=== PATIENT | male | born 1940 | race Caucasian/White ===

== ENCOUNTER 2017-07-25 12:50 | Inpatient (IN) | payer MEDICARE ==
[~2017-07-25] VITALS: Ht 167.6 cm; Wt 77.2 kg
[~2017-07-25 12:50] MED LIST: ASA81 MG PO; Z.0.AMARYL2 MG PO; Z.0.CLOPIDOGREL75 MG PO; Z.0.COREG6.25 MG PO; Z.0.GLUCOPHAGE500 MG PO; Z.0.PRAVACHOL20 MG PO; Z.0.VASOTEC5 MG PO
[2017-07-25 13:15] VITALS: BP 93/53
[2017-07-25 13:22] VITALS: BP 93/53
[2017-07-25 13:58] LABS: BASOPHILS # (AUTO) 0.1 (0.0-0.1); BASOPHILS % 0.2 % (0.0-1.0); HEMATOCRIT 31.9 % (38.2-49.6); HEMOGLOBIN 10.7 g/dL (14.0-18.0); LYMPHOCYTES # (AUTO) 0.9 (1.0-3.2); LYMPHOCYTES % 4.1 % (18.0-39.1); MEAN CORPUSCULAR HEMOGLOBIN 30.8 pg (28-32); MEAN CORPUSCULAR HGB CONC 33.5 g/dL (31-35); MEAN CORPUSCULAR VOLUME 91.9 fL (81-99); MONOCYTES # (AUTO) 1.6 (0.2-0.8); MONOCYTES % 7.4 % (4.4-11.3); NEUTROPHILS # (AUTO) 18.6 (2.1-6.9); NEUTROPHILS % 86.9 % (38.7-80.0); PLATELET COUNT 392 x10e3/uL (140-360); RED BLOOD COUNT 3.47 x10e6/uL (4.3-5.7); RED CELL DISTRIBUTION WIDTH 13.9 % (11.7-14.4)
[2017-07-25 14:23] LABS: ALANINE AMINOTRANSFERASE 27 IU/L (0-55); ALBUMIN 2.1 g/dL (3.5-5.0); ALBUMIN/GLOBULIN RATIO 0.7 (0.8-2.0); ALKALINE PHOSPHATASE 96 IU/L (40-150); AMYLASE 14 U/L (25-125); ANION GAP 16.4 mmol/L (8-16); BLOOD UREA NITROGEN 54 mg/dL (7-26); BUN/CREATININE RATIO 29 (6-25); CALCIUM 8.7 mg/dL (8.4-10.2); CARBON DIOXIDE 14 mmol/L (22-29); CHLORIDE 108 mmol/L (98-107); CREATININE, SERUM 1.86 mg/dL (0.72-1.25); EST GLOMERULAR FILTRATION RATE 35 ML/MIN (60-); GLUCOSE 158 mg/dL (74-118); POTASSIUM 4.4 mmol/L (3.5-5.1); SODIUM 134 mmol/L (136-145)
[2017-07-25 14:24] LABS: LIPASE < 4 U/L (8-78)
--- NOTE | 2017-07-25 14:28 | Diagnostic Imaging Report ---
PROCEDURE: A single AP view of the chest. COMPARISON: None. INDICATIONS: ORTHO HYPOTENSION, DEHYDRATION FINDINGS: Lines/tubes: None. Lungs: The lungs are well inflated and clear. There is no evidence of pneumonia or pulmonary edema. Pleura: There is no pleural effusion or pneumothorax. Heart and mediastinum: Normal heart size. Mild tortuosity of the thoracic aorta. Bones: No acute bony abnormality. IMPRESSION: 1. No acute cardiopulmonary disease. Dictated by: Eliud Nj M.D. on 07/25/2017 at 14:28 Electronically approved by: Eliud Nj M.D. on 07/25/2017 at 14:28
--- NOTE | 2017-07-25 14:29 | Diagnostic Imaging Report ---
PROCEDURE:X-RAY ABDOMEN - KUB COMPARISON:None. INDICATIONS:DEHYDRATION, ORTHO HYPOTENSION FINDINGS: View the abdomen (AP supine). No dilated loops of bowel or abnormal air-fluid levels patterns. The transverse colon wall appears thickened. No definite calcifications are seen overlying the urinary system. Five non-rib bearing lumbar type vertebral bodies identified. CONCLUSION: The colon wall appears thickened. Correlate for evidence of colitis. No evidence of bowel obstruction. Dictated by: Eliud Nj M.D. on 07/25/2017 at 14:31 Electronically approved by: Eliud Nj M.D. on 07/25/2017 at 14:31
[2017-07-25 14:43] LABS: THYROID STIMULATING HORMONE 2.469 uIU/mL (0.350-4.940)
[2017-07-25 15:01] LABS: BAND NEUTROPHILS % (MANUAL) 1 %; HYPOCHROMASIA SLIGHT; LYMPHOCYTES % (MANUAL) 3 % (19-48); MONOCYTES % (MANUAL) 9 % (3.4-9.0); NEUTROPHILS % (MANUAL) 87 % (40-74)
[2017-07-25 15:02] LABS: PLATELET ESTIMATE SLIGHTLY INCREASED; PLATELET MORPHOLOGY COMMENT RARE EDTA CLUMPING; RBC MORPHOLOGY COMMENT NORMAL
[2017-07-25] MEDS ORDERED: COREG3.125 MG PO (15:10)
[2017-07-25] MEDS ORDERED: LOSARTAN POTAS100 MG PO (15:10)
[2017-07-25] MEDS ORDERED: FERROUS SULFAT325 MG PO (15:10)
[2017-07-25] MEDS ORDERED: ACIDOPHILUS1 EAC1 PO (15:10)
[2017-07-25] MEDS ORDERED: ATORVASTATIN CA20 MG PO (15:10)
[2017-07-25] MEDS ORDERED: FOLIC ACID1 MG PO (15:10)
[2017-07-25] MEDS ORDERED: PANTOPRAZOLE SO40 MG PO (15:10)
[2017-07-25] MEDS ORDERED: SILVADENE20 GM TOP (15:52)
[2017-07-25 16:00] VITALS: BP 119/58
[2017-07-25] MEDS: SODIUM CHLORIDE 0.9% 1000ML 1,000 ML IV SCH (16:48)
[2017-07-25] MEDS: METFORMIN HCL 500 MG TAB PO SCH (16:48)
[2017-07-25] MEDS: METRONIDAZOLE 500MG/NS 100ML 100 ML IV SCH ×2 (16:48→20:30)
[2017-07-25] MEDS: LACTOBACILLUS ACIDOPHILUS CAPSULE PO SCH ×2 (16:48→20:29)
[2017-07-25 20:00] VITALS: BP 94/54
[2017-07-25] MEDS: CHOLESTYRAMINE 4 GM PACKET PO SCH (20:30)
[2017-07-25] MEDS ORDERED: ATORVASTATIN 20 MG TAB PO SCH (21:00)
[2017-07-25 23:20] LABS: INR 1.51; PARTIAL THROMBOPLASTIN TIME 35.5 seconds (23.8-35.5); PROTHROMBIN TIME 17.1 seconds (11.9-14.5)
[2017-07-26] VITALS (10 sets, daily range): BP systolic 83–132; BP diastolic 46–72
[2017-07-26] MEDS: SODIUM CHLORIDE 0.9% 1000ML 1,000 ML IV SCH ×2 (05:56→07:00)
[2017-07-26] MEDS: METRONIDAZOLE 500MG/NS 100ML 100 ML IV SCH ×3 (06:01→21:01)
[2017-07-26] MEDS: CHOLESTYRAMINE 4 GM PACKET PO SCH (06:01)
[2017-07-26] MEDS ORDERED: ONDANSETRON HCL INJ 2 MG/ML VIAL IV PRN (07:30)
[2017-07-26 07:39] LABS: BASOPHILS # (AUTO) 0.1 (0.0-0.1); BASOPHILS % 0.5 % (0.0-1.0); EOSINOPHILS % 0.1 % (0.0-6.0); HEMATOCRIT 33.9 % (38.2-49.6); HEMOGLOBIN 11.2 g/dL (14.0-18.0); LYMPHOCYTES # (AUTO) 1.4 (1.0-3.2); MEAN CORPUSCULAR HEMOGLOBIN 30.5 pg (28-32); MEAN CORPUSCULAR VOLUME 92.4 fL (81-99); MONOCYTES # (AUTO) 1.7 (0.2-0.8); MONOCYTES % 7.2 % (4.4-11.3); NEUTROPHILS # (AUTO) 19.5 (2.1-6.9); PLATELET COUNT 393 x10e3/uL (140-360); RED BLOOD COUNT 3.67 x10e6/uL (4.3-5.7); RED CELL DISTRIBUTION WIDTH 13.9 % (11.7-14.4)
[2017-07-26 07:59] LABS: ALBUMIN 1.7 g/dL (3.5-5.0); ALBUMIN/GLOBULIN RATIO 0.7 (0.8-2.0); ANION GAP 17.3 mmol/L (8-16); CALCIUM 8.2 mg/dL (8.4-10.2); CREATININE, SERUM 3.01 mg/dL (0.72-1.25); POTASSIUM 4.3 mmol/L (3.5-5.1)
[2017-07-26] MEDS: METFORMIN HCL 500 MG TAB PO SCH (08:32)
[2017-07-26] MEDS: FOLIC ACID 1 MG TAB PO SCH (08:33)
[2017-07-26] MEDS: FERROUS SULFATE 325 MG TAB PO SCH (08:33)
[2017-07-26] MEDS: LACTOBACILLUS ACIDOPHILUS CAPSULE PO SCH ×2 (08:33→20:39)
[2017-07-26 08:56] LABS: BAND NEUTROPHILS % (MANUAL) 10 %; LYMPHOCYTES % (MANUAL) 2 % (19-48); METAMYELOCYTES % (MANUAL) 8 % (0-0); MONOCYTES % (MANUAL) 8 % (3.4-9.0); MYELOCYTES % (MANUAL) 1 % (0-0); NEUTROPHILS % (MANUAL) 69 % (40-74)
[2017-07-26 08:59] LABS: TOXIC GRANULATION SLIGHT
[2017-07-26] MEDS ORDERED: CLOPIDOGREL BISULFATE 75 MG TAB PO SCH (09:00)
[2017-07-26] MEDS ORDERED: PANTOPRAZOLE SOD 40 MG TABEC PO SCH (09:00)
[2017-07-26 09:03] LABS: BURR CELLS SLIGHT; POIKILOCYTOSIS SLIGHT; POLYCHROMASIA FEW; RBC MORPHOLOGY COMMENT NORMAL
[2017-07-26 09:04] LABS: PLATELET ESTIMATE ADEQUATE; PLATELET MORPHOLOGY COMMENT RARE EDTA CLUMPING; SMUDGE CELLS FEW
[2017-07-26] MEDS ORDERED: DEXTROSE 50% SYRINGE 50 ML IV PRN (10:00)
[2017-07-26] MEDS: PROMETHAZINE 25MG/ NS 50ML (IV) IV PRN (10:15)
--- NOTE | 2017-07-26 10:18 | History and Physical ---
This is a 76-year-old male patient of [facility]. He presented to the office with complaint of severe weakness and diarrhea, which have worsened for the last 3 to 4 days. HISTORY OF PRESENT ILLNESS: Mr. Dill said his problems started a month ago when he had a dog bite on 2 different occasions. For that, the patient had to come to the emergency room. Then the patient was given outpatient antibiotics, and the patient had aggressive wound care being done. The patient's wound was taken care of by Silvadene, Bactrim and doxycycline. The patient has now reported that he was having on and off loose BMs for the last month. For the last 3 to 4 days, it had worsened. The patient was evaluated in the office. The patient was hypotensive with orthostasis with severe dehydration. The patient was admitted. The patient had outpatient C. diff study ordered, which was reported negative on July 18, 2017. MEDICATIONS: See from the list. PAST MEDICAL HISTORY: Diabetes mellitus, hypertension, coronary artery disease. PAST SURGICAL HISTORY: Angiogram and angioplasty. Cholecystectomy. ALLERGIES: THE PATIENT HAD SIDE EFFECTS WITH PRAVASTATIN AND ZOCOR. SOCIAL HISTORY: Denies smoking. Denies using alcohol. REVIEW OF SYSTEMS: Severe weakness, diarrhea, nausea, vomiting. PHYSICAL EXAMINATION GENERAL: He is an elderly male patient lying in bed, not in any acute distress. The patient has dry mucosa. HEENT: Normocephalic, atraumatic. NECK: No JVD. No lymphadenopathy. LUNGS: Bilateral equal air entry, no rales, no rhonchi. HEART: S1 and S2, regular. No murmur. No gallop. ABDOMEN: Soft. Bowel sounds are present. NEUROLOGIC: Examination is nonfocal. No neurologic deficit. LABORATORY EXAMINATION: The patient had a normal WBC count on July 18 that was 6.1, which had jumped on admission to 21.4. Today, it is 23.52. His creatinine has jumped up to 3 with BUN of 71. ADMISSION IMPRESSION AND DIAGNOSIS: Clostridium difficile colitis with acute severe dehydration with acute renal failure in a patient with diabetes mellitus, coronary artery disease and right lower leg wound from a dog bite, which is healing. PLAN: The patient will be admitted with the above diagnoses. The patient will be given aggressive rehydration. Will obtain ID and nephrology consults. Treat the patient with vancomycin. Job#: [id number]
[2017-07-26] MEDS: SILVER SULFADIAZINE 400GM CREAM TOP SCH (11:06)
--- NOTE | 2017-07-26 12:26 | Consultation ---
DATE OF CONSULTATION: July 26, 2017 History is predominantly from chart and electronic records. Patient is sleepy and drowsy, arousable, very poor historian. He is a 76-year-old gentleman with existing history of chronic kidney disease. Baseline serum creatinine as of 07/18/2017 was 1.38. Renal consulted for worsening kidney function. He has significantly elevated white count with issues of infection and sepsis. Hemoglobin is 11.2 with sodium 131 and bicarbonate 11 with BUN 31 and creatinine 3. Yesterday it was 1.86. ALLERGIES: LANSOPRAZOLE AND SIMVASTATIN. CURRENT MEDICATIONS: Patient is on metronidazole, normal saline at 125 mL an hour, Atorvastatin, Plavix, ferrous sulfate, folic acid, metformin which has been stopped, Reglan, silver sulfadiazine topically, vancomycin 250 mg p.o. q.6. He has been treated for possible C. diff. SOCIAL HISTORY: He does not smoke or drink. FAMILY HISTORY: Please see notes for detail. PAST HISTORY: Patient has a history of wounds, diabetes, hypertension, coronary artery disease, prior percutaneous intervention, hyperlipidemia, prior cholecystectomy, history of C. diff colitis. PHYSICAL EXAMINATION GENERAL: Sleepy, arousable, in no apparent distress. VITALS: Blood pressure 132/60, pulse rate 80, afebrile, respiratory rate 18. HEAD AND NECK: Corneas clear. Arcus senilis noted. LUNGS: Relatively clear. No rales or rhonchi. HEART: S1, S2 audible. ABDOMEN: Otherwise soft and nontender. No deep palpation done. Possible distended urinary bladder. Patient is not letting me fully examine him. He says his belly hurts. He has not voided any urine he claims. LOWER EXTREMITIES: No edema. IMPRESSION AND PLAN: Acute kidney injury with development of metabolic acidosis. Apparently was on metformin. Has underlying history of chronic kidney disease, stage 3. I doubt we are dealing with metformin-induced nephrotoxicity and lactic acidosis, but will obtain a stat lactic acid level. I will discontinue existing normal saline and start IV bicarbonate stat. Rule out urinary tract obstruction. Will have a stat kidney ultrasound and urinary bladder. Will have a 16-Italian Felix inserted. Please see orders. Job#: [id number]
[2017-07-26] MEDS: INSULIN REGULAR, HUMAN 100 UNIT/1 ML 3ML VIAL SQ SCH ×3 (12:49→20:39)
[2017-07-26] MEDS: SODIUM BICARBONATE 8.4% 150 ML in DEXTROSE 5% 1,000 ML IV SCH (12:51)
[2017-07-26] MEDS: VANCOMYCIN 250MG/5ML ORAL SOLN PO SCH ×3 (12:51→23:35)
--- NOTE | 2017-07-26 13:35 | Consultation ---
DATE OF CONSULTATION: July 26, 2017 INFECTIOUS DISEASE CONSULTATION ATTENDING PHYSICIAN: Dr. Daryl Avalos REASON FOR CONSULTATION: C. diff. Thank you Dr. Avalos for asking me to see this patient. HISTORY: The patient is a 76-year-old man referred for C. difficile. He presented to the primary care provider's office with vomiting, cramping abdominal pain, profuse diarrhea and generalized weakness for several days. There was no fever or loss of consciousness. The patient was bitten by his dog and was treated at [facility] with amoxicillin several days earlier. Also the patient was receiving Bactrim and lactobacillus. Evaluation at the primary care provider's office revealed orthostatic hypotension and severe dehydration so the patient was admitted to the hospital. At triage, the patient was noted to have temperature of 96, pulse 86, respiratory rate 18, blood pressure 93/63 and oxygen saturation at 80% on room air. Initially laboratory studies showed blood leukocyte count of 21,400 with 87% segments and 1% bands; BUN 54, creatinine 1.86. Stool C. difficile text later turned positive. PAST MEDICAL HISTORY: Diabetes mellitus type 2, hypertension, hyperlipidemia, coronary artery disease, chronic kidney disease stage 3, peripheral arterial disease, hypothyroidism, gastroesophageal reflux disease. PAST SURGICAL HISTORY: Cholecystectomy. ALLERGIES: PREVACID AND ? ZOCOR. MEDICATIONS: See MAR. The current antibiotics are vancomycin 250 mg p.o. q.6 hours and metronidazole 250 mg p.o. q.8 hours. IMMUNIZATIONS: He received pneumococcal vaccination in the past. He also received tetanus-diphtheria vaccine last month. FAMILY HISTORY: Significant for diabetes mellitus in the mother and the father. SOCIAL HISTORY: No tobacco use. REVIEW OF SYSTEMS: As per history of present illness. The patient still has frequent vomiting, abdominal pain and generalized weakness. He denies cough, shortness of breath, or dysuria. PHYSICAL EXAMINATION GENERAL: Acutely ill. VITAL SIGNS: T max 99.4, pulse 95, respiratory rate 18, blood pressure 89/51, weight 143 pounds. HEENT: Normocephalic. There is no icterus or injection of conjunctivae. There is no ear or nasal discharge. Dry oral mucosa. No pharyngeal erythema or exudate. NECK: Supple. No lymphadenopathy or meningismus. LUNGS: Clear to auscultation bilaterally. HEART: Normal S1 and S2. ABDOMEN: Soft with moderate diffuse tenderness. EXTREMITIES: There is granulating right calf wound. There is no edema, clubbing or cyanosis. The dorsalis pedis and posterior tibial pulses are weak to palpation both feet. SKIN: There is granulating right calf wound. No acute erythema. UI ARCHITECT: Awake, alert and oriented to person, place and time. There is decreased sensation on monofilament examination of the feet bilaterally. LABORATORY AND DIAGNOSTICS: WBC 23,520, hemoglobin 11.2, platelets 393,000, segments 69, bands 10, lymphs 2, monos 8. Toxic granulation slight. BUN 71, creatinine 3.01, blood glucose 188, AST 26, ALT 25, alk phos 81, total bilirubin 0.5. Plain abdominal x-ray showed thickened colon wall but no evidence of bowel obstruction. Chest x-ray showed no acute cardiopulmonary disease. IMPRESSION 1. Sepsis present on admission. 2. Clostridium difficile colitis present on admission. 3. Severe dehydration also present on admission. 4. Right calf wound. 5. Acute kidney injury on chronic kidney disease stage 3. 6. Diabetes mellitus type 2 with peripheral neuropathy. 7. Coronary artery disease. 8. Hypothyroidism. PLAN 1. Continue IV fluid resuscitation. 2. Change Flagyl to 500 mg IV piggyback q.8 hours and continue vancomycin 250 mg p.o. q.6 hours. Nausea control as prescribed. 3. Local wound care. Job#: [id number] ESTUARDO ULLOA
[2017-07-26] MEDS ORDERED: METRONIDAZOLE 250 MG TAB PO SCH (14:00)
[2017-07-26] MEDS ORDERED: SODIUM CHLORIDE 0.9% 1000ML 1,000 ML ONE (14:18)
--- NOTE | 2017-07-26 15:36 | Diagnostic Imaging Report ---
PROCEDURE:US RETROPERITONEAL ( KIDNEY ). COMPARISON:None. INDICATIONS:ECTOR TECHNIQUE: Mcdonald-scale and color sonographic images of the bilateral kidneys and bladder where obtained in transverse and longitudinal planes. FINDINGS: RIGHT KIDNEY: 9.4 x 5.3 x 5.2 cm, cortex 1.2 cm Cysts: None Solid masses: None Stones: None Hydronephrosis: None Echogenicity: None LEFT KIDNEY: 9.1 x 4.9 x 5.3 cm, cortex 1.3 cm Cysts: None Solid masses: None Stones: None Hydronephrosis: None Echogenicity: None Bladder: Collapsed secondary to Felix catheter. Additional Findings: Small amount of ascites in the right lower quadrant. CONCLUSION: Normal ultrasound of the kidneys. No hydronephrosis. Dictated by: Jose C Rogers M.D. on 07/26/2017 at 15:37 Electronically approved by: Jose C Rogers M.D. on 07/26/2017 at 15:37
[2017-07-26] MEDS ORDERED: SODIUM CHLORIDE 0.9% 1000ML 1,000 ML IV PRN (17:00)
[2017-07-26] MEDS ORDERED: HEPARIN SOD (PORCINE) 1000 UNIT/ML SDV IV PRN (17:00)
[2017-07-26] MEDS ORDERED: SODIUM CHLORIDE 0.9% 1000ML 1,000 ML IV SCH (17:30)
[2017-07-26] MEDS: ATORVASTATIN 40 MG TAB PO SCH (20:39)
[2017-07-27] VITALS (67 sets, daily range): BP systolic 75–140; BP diastolic 43–80
[2017-07-27] MEDS ORDERED: PANTOPRAZOLE 40 MG 10ML VIAL IV STA (02:35)
[2017-07-27] MEDS ORDERED: PANTOPRAZOL 40MG/SOD CHL 0.9% 250 ML IV SCH (02:45)
[2017-07-27] MEDS: SODIUM BICARBONATE 8.4% 150 ML in DEXTROSE 5% 1,000 ML IV SCH ×2 (03:19→10:50)
[2017-07-27] MEDS: METRONIDAZOLE 500MG/NS 100ML 100 ML IV SCH ×3 (05:19→21:14)
[2017-07-27] MEDS: VANCOMYCIN 250MG/5ML ORAL SOLN PO SCH ×3 (05:19→17:07)
[2017-07-27] MEDS ORDERED: SODIUM CHLORIDE 0.9% 1000ML 1,000 ML IV SCH (06:30)
[2017-07-27 06:56] LABS: BASOPHILS % 0.1 % (0.0-1.0); EOSINOPHILS % 0.2 % (0.0-6.0); HEMATOCRIT 31.4 % (38.2-49.6); HEMOGLOBIN 10.8 g/dL (14.0-18.0); LYMPHOCYTES # (AUTO) 0.9 (1.0-3.2); LYMPHOCYTES % 5.9 % (18.0-39.1); MEAN CORPUSCULAR HEMOGLOBIN 30.3 pg (28-32); MEAN CORPUSCULAR HGB CONC 34.4 g/dL (31-35); MONOCYTES # (AUTO) 1.1 (0.2-0.8); MONOCYTES % 7.8 % (4.4-11.3); NEUTROPHILS # (AUTO) 11.4 (2.1-6.9); NEUTROPHILS % 77.5 % (38.7-80.0); PLATELET COUNT 280 x10e3/uL (140-360); RED BLOOD COUNT 3.57 x10e6/uL (4.3-5.7); RED CELL DISTRIBUTION WIDTH 13.5 % (11.7-14.4)
[2017-07-27 07:18] LABS: ALBUMIN 1.2 g/dL (3.5-5.0); ALBUMIN/GLOBULIN RATIO 0.6 (0.8-2.0); ANION GAP 12.7 mmol/L (8-16); CALCIUM 7.2 mg/dL (8.4-10.2); CREATININE, SERUM 2.73 mg/dL (0.72-1.25); POTASSIUM 3.7 mmol/L (3.5-5.1)
[2017-07-27 08:09] LABS: BAND NEUTROPHILS % (MANUAL) 10 %; BURR CELLS SLIGHT; LYMPHOCYTES % (MANUAL) 8 % (19-48); MONOCYTES % (MANUAL) 11 % (3.4-9.0); MYELOCYTES % (MANUAL) 1 % (0-0); NEUTROPHILS % (MANUAL) 70 % (40-74); NUCLEATED RED BLOOD CELLS 2; PLATELET ESTIMATE ADEQUATE; PLATELET MORPHOLOGY COMMENT FEW EDTA CLUMPING; RBC MORPHOLOGY COMMENT ABNORMAL; SCHISTOCYTES RARE
[2017-07-27] MEDS ORDERED: SODIUM CHLORIDE 0.9% 1000ML 1,000 ML ONE (08:36)
[2017-07-27] MEDS ORDERED: PANTOPRAZOLE 40 MG 10ML VIAL IV SCH (09:00)
[2017-07-27] MEDS: LACTOBACILLUS ACIDOPHILUS CAPSULE PO SCH ×2 (09:00→15:33)
[2017-07-27] MEDS: FERROUS SULFATE 325 MG TAB PO SCH ×2 (09:00→15:33)
[2017-07-27] MEDS: FOLIC ACID 1 MG TAB PO SCH ×2 (09:00→15:33)
[2017-07-27] MEDS: SODIUM CHLORIDE 0.9% 1000ML 1,000 ML IV SCH ×8 (09:29→15:37)
[2017-07-27] MEDS: INSULIN REGULAR, HUMAN 100 UNIT/1 ML 3ML VIAL SQ SCH ×4 (09:37→21:18)
[2017-07-27] MEDS: PANTOPRAZOL 40MG/SOD CHL 0.9% 50 ML IV SCH ×5 (10:49→22:40)
[2017-07-27] MEDS ORDERED: NOREPINEPHRINE 8 MG/D5W 250 ML 250 ML ONE (11:23)
[2017-07-27] MEDS: VASOPRESSIN 100 UNIT in DEXTROSE 5% 100ML 100 ML IV SCH (12:04)
[2017-07-27] MEDS: NOREPINEPHRINE INJ 4MG/4ML 8 MG in DEXTROSE 5% 250ML 250 ML IV SCH (12:05)
[2017-07-27] MEDS ORDERED: ALBUMIN 5% 250ML IV ONE (12:15)
[2017-07-27] MEDS ORDERED: ALBUMIN 25% 12.5GM 150 ML IV ONE (13:00)
--- NOTE | 2017-07-27 13:25 | Diagnostic Imaging Report ---
SINGLE VIEW CHEST, 07/27/2017 Clinical History: Line placement. Technique: Single, portable AP view chest. Comparison: None. Findings: See impression. Impression: 1. Right internal jugular central venous catheter with the tip at the atriocaval junction. 2. Right internal jugular non-tunneled dialysis catheter with tip in the right atrium. 3. Stable cardiac mediastinal silhouette, with mild cardiomegaly for technique. 4. Low lung volume with bibasilar subsegmental atelectasis. No pleural effusion or pneumothorax. 5. Intact skeleton. This report was generated with voice-recognition technology. Errors in registered medical transcriptionist can occur. Please interpret accordingly and contact a radiologist if there are any questions regarding the report. Signed by: Dr. Abad Delatorre M.D. on 07/27/2017 1:22 PM
--- NOTE | 2017-07-27 13:43 | Diagnostic Imaging Report ---
Non-tunneled Central Venous Catheter Placement July 27, 2017 Pre-Procedure Diagnosis: Hypotension Post-procedure Diagnosis:Hypotension Food Counter Worker: Kendell Delatorre Snorkelling Instructor: None Sedation: None. 1% lidocaine local anesthesia. Estimate blood loss: <5 mL Blood administered: None Complications: None Implants/Grafts: 16 cm 7-Malawian 3 lumen CVC Specimen: None Procedure: Informed consent was obtained and the patient positioned supine in the ICU. A timeout was performed, followed by preliminary ultrasound of the right internal jugular vein (see findings below). The right neck was prepped and draped in standard fashion. Using real-time ultrasound guidance a 18 gauge vascular needle was used to access the right internal jugular vein. An image was stored in the electronic medical record. A wire was advanced while monitoring the patient's cardiac rhythm and the needle exchanged for a non-tunneled central venous catheter using standard Salinger technique. At the end of the procedure the catheter was flushed, secured to the skin and a sterile dressing applied. The patient tolerated the procedure well and without immediate complication. Findings: Patent right internal jugular vein as demonstrated by normal ultrasound compressibility. Impression: Successful placement of a non-tunneled right internal jugular central venous catheter using ultrasound guidance. This report was generated with voice-recognition technology. Errors in corporate securities research analyst can occur. Please interpret accordingly and contact a radiologist if there are any questions regarding the report. Signed by: Dr. Abad Delatorre M.D. on 07/27/2017 1:39 PM
--- NOTE | 2017-07-27 13:43 | Diagnostic Imaging Report ---
Non-tunneled Central Venous Catheter Placement July 27, 2017 Pre-Procedure Diagnosis: Hypotension Post-procedure Diagnosis:Hypotension Nut And Bolt Assembler: Kendell Delatorre Data Operations Leader: None Sedation: None. 1% lidocaine local anesthesia. Estimate blood loss: <5 mL Blood administered: None Complications: None Implants/Grafts: 16 cm 7-Trinidadian 3 lumen CVC Specimen: None Procedure: Informed consent was obtained and the patient positioned supine in the ICU. A timeout was performed, followed by preliminary ultrasound of the right internal jugular vein (see findings below). The right neck was prepped and draped in standard fashion. Using real-time ultrasound guidance a 18 gauge vascular needle was used to access the right internal jugular vein. An image was stored in the electronic medical record. A wire was advanced while monitoring the patient's cardiac rhythm and the needle exchanged for a non-tunneled central venous catheter using standard Salinger technique. At the end of the procedure the catheter was flushed, secured to the skin and a sterile dressing applied. The patient tolerated the procedure well and without immediate complication. Findings: Patent right internal jugular vein as demonstrated by normal ultrasound compressibility. Impression: Successful placement of a non-tunneled right internal jugular central venous catheter using ultrasound guidance. This report was generated with voice-recognition technology. Errors in auto dealership porter can occur. Please interpret accordingly and contact a radiologist if there are any questions regarding the report. Signed by: Dr. Abad Delatorre M.D. on 07/27/2017 1:39 PM
--- NOTE | 2017-07-27 13:43 | Diagnostic Imaging Report ---
Non-tunneled Central Venous Catheter Placement July 27, 2017 Pre-Procedure Diagnosis: Hypotension Post-procedure Diagnosis:Hypotension Laborer General: Kendell Delatorre Special Service Representative: None Sedation: None. 1% lidocaine local anesthesia. Estimate blood loss: <5 mL Blood administered: None Complications: None Implants/Grafts: 16 cm 7-Ukrainian 3 lumen CVC Specimen: None Procedure: Informed consent was obtained and the patient positioned supine in the ICU. A timeout was performed, followed by preliminary ultrasound of the right internal jugular vein (see findings below). The right neck was prepped and draped in standard fashion. Using real-time ultrasound guidance a 18 gauge vascular needle was used to access the right internal jugular vein. An image was stored in the electronic medical record. A wire was advanced while monitoring the patient's cardiac rhythm and the needle exchanged for a non-tunneled central venous catheter using standard Salinger technique. At the end of the procedure the catheter was flushed, secured to the skin and a sterile dressing applied. The patient tolerated the procedure well and without immediate complication. Findings: Patent right internal jugular vein as demonstrated by normal ultrasound compressibility. Impression: Successful placement of a non-tunneled right internal jugular central venous catheter using ultrasound guidance. This report was generated with voice-recognition technology. Errors in project buyer can occur. Please interpret accordingly and contact a radiologist if there are any questions regarding the report. Signed by: Dr. Abad Delatorre M.D. on 07/27/2017 1:39 PM
--- NOTE | 2017-07-27 13:50 | Consultation ---
DATE OF CONSULTATION: REQUESTING PHYSICIAN: Dr. Tavares Avalos. REASON FOR CONSULT: Tachycardia. HISTORY OF PRESENT ILLNESS: Mr. Dill is a 76-year-old gentleman with past medical history as listed below CANCELED DICTATION See dictated note Job#: [id number] PKU MTDD
--- NOTE | 2017-07-27 13:51 | Consultation ---
DATE OF CONSULTATION: July 27, 2017 REQUESTING PHYSICIAN: Dr. Avalos. REASON FOR CONSULTATION: Tachycardia, hypotension. HISTORY OF PRESENT ILLNESS: Mr. Dill is a 76-year-old gentleman with past medical history as listed below. He was admitted with C. difficile colitis. He was on the floor being treated. The patient developed abdominal pain, and his blood pressure dropped to the 50s. The patient was transferred to the intensive care unit. Currently, his blood pressure is in the 90s. The heart rate is in the low 100s. Patient complains of abdominal pain, no vomiting. He did have some diarrhea. He denies any chest pain. He does have shortness of breath. Patient also has renal failure. REVIEW OF SYSTEMS CONSTITUTIONAL: Has some fatigue and weakness. HEENT: No headache, blurry vision, seizures or syncope. CARDIOVASCULAR: No chest pain. Has dyspnea. No orthopnea or PND. RESPIRATORY: No cough, fever or expectoration. GI: Has abdominal pain. No vomiting. Has diarrhea. : No dysuria, frequency, incontinence. ALLERGIES: LISINOPRIL AND SIMVASTATIN. MEDICATIONS: See list. PAST MEDICAL HISTORY 1. History of hypertension. 2. History of diabetes mellitus. 3. History of CAD and history of PTCA. PAST SURGICAL HISTORY 1. Cholecystectomy. 2. History of PTCA. SOCIAL HISTORY: Does not smoke or drink. FAMILY HISTORY: Noncontributory. PHYSICAL EXAMINATION GENERAL: Moderately built and nourished gentleman who is awake, alert, not in any obvious distress. VITALS: Heart rate 108. Blood pressure is 94/58. Respiratory rate is 18. HEENT: Atraumatic. NECK: No JVD, bruit, thyromegaly or lymphadenopathy. CARDIOVASCULAR: First and second heart sounds heard. No murmurs, rubs or gallops appreciated. CHEST: Decreased air entry at the bases. No adventitious sounds appreciated. ABDOMEN: Soft. Mild umbilical tenderness. EXTREMITIES: No edema. LABS: Sodium is 134, potassium 3.7, chloride 99, bicarb 26. BUN is 42, and creatinine is 2.7. Glucose 201. Hemoglobin is 10.8, hematocrit 31.4, platelets are 280. White count is 14.6. INR 1.5. IMPRESSION 1. Possible sepsis. 2. Clostridium difficile colitis. 3. Hypotension. 4. Tachycardia. 5. History of coronary artery disease. 6. History of diabetes mellitus. PLAN 1. The patient's tachycardia and hypotension are probably due to his sepsis and C. diff. 2. His blood pressure is in the 90s. Continue with IV fluids. Should his blood pressure come down, will start him on pressors. 3. Get echocardiogram to assess LV function and valvular function. 4. Continue with antibiotics. 5. Further cardiac workup depending on clinical course. 6. I discussed my impression and plan of management with the patient. As always, I appreciate and thank you very for your referrals. Job#: [id number]
[2017-07-27 13:53] LABS: ABG HCO3 29 mmol/L (23-28); ABG PCO2 41 mmHg (41-51); ABG PH 7.46 (7.31-7.41); ABG PO2 104 mmHg (80-105)
[2017-07-27] MEDS ORDERED: BUMETANIDE INJ 0.25MG/ML 4ML VIAL ONE ×2 (16:11→16:24)
[2017-07-27] MEDS ORDERED: BUMETANIDE IV SCH ×2 (16:30→17:00)
[2017-07-27] MEDS ORDERED: SODIUM CHLORIDE 0.9% IV SCH ×2 (16:30→17:00)
[2017-07-27] MEDS ORDERED: BUMETANIDE INJ 0.25MG/ML 4ML VIAL IV ONE (17:00)
[2017-07-27] MEDS ORDERED: BUMETANIDE 10 MG in SODIUM CHLORIDE 0.9% 100 ML 60 ML IV SCH (17:00)
[2017-07-27] MEDS: SILVER SULFADIAZINE 400GM CREAM TOP SCH (17:07)
--- NOTE | 2017-07-27 21:08 | Consultation ---
DATE OF CONSULTATION: July 27, 2017 PULMONARY/CRITICAL CARE CONSULTATION REASON FOR CONSULT: Septic shock. CHIEF COMPLAINT: Weakness and diarrhea for the last 3 to 4 days when he presented to Dr. Daryl Avalos's office. HPI: Mr. Dill is a 76-year-old male who was sent from Dr. Avalos's office with the complaint of diarrhea. Patient remained on the floor and was found to develop renal failure and leukocytosis with hypotension. He was transferred to ICU. His C. diff study came back positive last night, and he is being treated with antibiotics for C. diff colitis. He reports that he went to [facility] as an outpatient for the treatment of a dog bite. He was in the emergency room for a couple of hours. However, he has not been hospitalized in the last 6 to 8 months. The patient was severely dehydrated in the office. On July 18, 2017, he had an outpatient C. diff study which was negative. REVIEW OF SYSTEMS GENERAL: Denies any fever or chills. HEAD: Denies any head trauma. ENT: Denies any earache. CVS: Denies any chest pain. RESPIRATORY: The patient feels short of breath. GI: Diarrhea, abdominal pain. MUSCULOSKELETAL: Denies any arthralgias or myalgias. NEURO: Denies any focal weakness. OTHER: The rest of the review of systems are negative except as in HPI. PAST MEDICAL HISTORY: Diabetes, hypertension, coronary artery disease. PAST SURGICAL HISTORY: Cholecystectomy. FAMILY AND SOCIAL HISTORY: He does not smoke and does not drink. PHYSICAL EXAMINATION VITAL SIGNS: Temperature 97.6, pulse of 98, blood pressure 124/64. This is on 2 pressors, Levophed and vasopressin and dobutamine. HEENT: Head is atraumatic and normocephalic. NECK: Supple. No JVD. Thyroid is not enlarged. CHEST: Clear to auscultation bilaterally. HEART: S1 and S2 audible. No murmurs, gallops or rub. ABDOMEN: Mildly distended. Tender. Bowel sounds audible. EXTREMITIES: No clubbing, cyanosis or edema. NEUROLOGIC: Awake and alert. Following commands. Responds to questions appropriately. [place]S: [place] [address], yesterday was 23,000. Hemoglobin 10.8. Platelets 280. Chemistry: Sodium 134, potassium 3.7, chloride 99, BUN 42, creatinine 2.73. It was 3.01, down to 2.73. Chest x-ray showed low lung volumes but no focal infiltrate. ASSESSMENT AND PLAN: Mr. Dill is a 76-year-old male who presented with diarrhea and now is in septic shock secondary to Clostridium difficile colitis. CURRENT PROBLEMS 1. Sepsis present on admission, now in septic shock due to Clostridium difficile colitis. 2. Severe dehydration. 3. Acute kidney injury. 4. Coronary artery disease. Preliminary reading on echocardiogram showed ejection fraction 60% to 65%. PLAN 1. IV antibiotics per ID recommendation. Patient is on Flagyl and p.o. vancomycin. 2. Continue on Levophed to keep the MAP more than or equal to 65. 3. If patient has deterioration in the condition, then may need CT scan of the abdomen and pelvis to rule out toxic megacolon and complication of C. diff colitis. 4. Continue the patient on oxygen to keep the O2 sat more than or equal to 92%. 5. Discussed with the patient's family at bedside. Critical care time is 45 minutes. Job#: [id number]
[2017-07-27] MEDS: ATORVASTATIN 40 MG TAB PO SCH (21:13)
[2017-07-27] MEDS ORDERED: DIATRIZOATE MEGL/DIATRIZOA SOD 30 ML BTL PO ONE (22:05)
[2017-07-27] MEDS: PROMETHAZINE 25MG/ NS 50ML (IV) IV PRN (22:26)
[2017-07-28] VITALS (87 sets, daily range): BP systolic 92–140; BP diastolic 46–81
[2017-07-28] MEDS: VANCOMYCIN 250MG/5ML ORAL SOLN PO SCH ×5 (00:26→23:19)
--- NOTE | 2017-07-28 00:32 | Diagnostic Imaging Report ---
EXAM: CT ABDOMEN AND PELVIS without IV CONTRAST INDICATION: Abdominal distention, C. Difficile COMPARISON: None TECHNIQUE: The abdomen and pelvis were scanned using a multidetector helical scanner. Coronal and sagittal reformations were obtained. Routine protocol performed. IV Contrast: None Oral Contrast: Gastrografin CTDIvol has been reviewed. It is below the limits set by the Radiation Protocol Committee (RPC). FINDINGS: LOWER THORAX: Small bilateral pleural effusions with adjacent atelectasis. Partially visualized small pericardial effusion. LIVER: No masses BILIARY: Normal gallbladder. No ductal dilation. SPLEEN: No masses PANCREAS: No masses ADRENALS: No nodules RIGHT KIDNEY: No nephroureterolithiasis or hydronephrosis. LEFT KIDNEY: No nephroureterolithiasis or hydronephrosis. GI TRACT: Gastrografin in the partially visualized distal esophagus, stomach and proximal small bowel. Marked diffuse colonic wall thickening VESSELS: Advanced atherosclerotic changes of the abdominal aorta without aneurysm. PERITONEUM/RETROPERITONEUM: Small volume ascites. LYMPH NODES: No lymphadenopathy REPRODUCTIVE ORGANS: Normal BLADDER: Decompressed by Felix catheter. SOFT TISSUES: Normal BONES: No suspicious bone lesions. IMPRESSION: Fair-colitis with marked colonic wall thickening consistent with provided history of C. difficile. Small volume ascites, small pericardial effusion, and small bilateral pleural effusions. Signed by: Dr. Maddy Abel M.D. on 07/28/2017 12:28 AM
[2017-07-28] MEDS: MORPHINE SULFATE 2 MG/ML SYR IV PRN ×2 (01:28→05:36)
[2017-07-28] MEDS: METRONIDAZOLE 500MG/NS 100ML 100 ML IV SCH ×3 (05:35→22:10)
[2017-07-28 05:44] LABS: BASOPHILS % 0.1 % (0.0-1.0); EOSINOPHILS # (AUTO) 0.1 (0.0-0.4); EOSINOPHILS % 0.3 % (0.0-6.0); HEMATOCRIT 28.3 % (38.2-49.6); HEMOGLOBIN 9.7 g/dL (14.0-18.0); LYMPHOCYTES # (AUTO) 0.8 (1.0-3.2); LYMPHOCYTES % 3.4 % (18.0-39.1); MEAN CORPUSCULAR HEMOGLOBIN 30.5 pg (28-32); MEAN CORPUSCULAR HGB CONC 34.3 g/dL (31-35); MONOCYTES # (AUTO) 1.8 (0.2-0.8); MONOCYTES % 7.9 % (4.4-11.3); NEUTROPHILS # (AUTO) 16.4 (2.1-6.9); NEUTROPHILS % 71.1 % (38.7-80.0); PLATELET COUNT 202 x10e3/uL (140-360); RED BLOOD COUNT 3.18 x10e6/uL (4.3-5.7); RED CELL DISTRIBUTION WIDTH 13.8 % (11.7-14.4)
[2017-07-28 06:06] LABS: ALBUMIN 1.8 g/dL (3.5-5.0); ANION GAP 16.8 mmol/L (8-16); CREATININE, SERUM 4.2 mg/dL (0.72-1.25); POTASSIUM 3.8 mmol/L (3.5-5.1)
[2017-07-28 06:22] LABS: CALCIUM 6.8 mg/dL (8.4-10.2)
[2017-07-28] MEDS ORDERED: CALCIUM CHLORIDE 13.6 MEQ in SODIUM CHLORIDE 0.9% 100 ML 100 ML IV ONE (06:45)
[2017-07-28] MEDS: DEXTROSE 5%/0.45% SOD CHL 1,000 ML IV SCH ×3 (06:57→23:24)
[2017-07-28] MEDS: INSULIN REGULAR, HUMAN 100 UNIT/1 ML 3ML VIAL SQ SCH ×4 (08:14→22:02)
[2017-07-28] MEDS: LACTOBACILLUS ACIDOPHILUS CAPSULE PO SCH ×2 (09:00→21:00)
[2017-07-28] MEDS ORDERED: SODIUM CHLORIDE 0.9% 1000ML 1,000 ML ONE (09:09)
[2017-07-28] MEDS ORDERED: CEFOXITIN SOD 1 GM in WATER STERILE 10ML VIAL 10 ML IV STA (09:32)
[2017-07-28] MEDS ORDERED: CEFOXITIN SOD 1 GM VIAL IV ONE (09:45)
[2017-07-28] MEDS: NOREPINEPHRINE INJ 4MG/4ML 8 MG in DEXTROSE 5% 250ML 250 ML IV SCH (11:15)
[2017-07-28] MEDS: VASOPRESSIN 100 UNIT in DEXTROSE 5% 100ML 100 ML IV SCH (11:30)
[2017-07-28] MEDS ORDERED: PROPOFOL IV EMULSION 10MG/ML 100 ML IV PRN (14:00)
[2017-07-28 14:05] LABS: ABG HCO3 20 mmol/L (23-28); ABG PCO2 36 mmHg (41-51); ABG PH 7.35 (7.31-7.41); ABG PO2 67 mmHg (80-105)
--- NOTE | 2017-07-28 14:44 | Diagnostic Imaging Report ---
EXAM: XR CHEST 1 VIEW DATE: 07/28/2017 11:56 AM INDICATION: Intubation COMPARISON: Previous day FINDINGS: Lines and Tubes: ET tube tip above the roger, NG tube with side holes likely above the GE junction, and 2 separate right IJ catheters with tip overlying the posterior junction. Heart and Mediastinum: No acute cardiomediastinal findings. Lungs and Pleura: Moderate bilateral airspace opacities are present which could represent edema and/or pneumonia. Small to moderate bilateral pleural effusions. Bones and Soft Tissues: No acute findings. IMPRESSION: 1. Intubation. 2. Worsening airspace opacity suggesting worsening edema and/or pneumonia. Progression of pleural effusions. Signed by: Dr. Malcolm Toribio MD on 07/28/2017 2:41 PM
--- NOTE | 2017-07-28 14:46 | Diagnostic Imaging Report ---
EXAM: ABDOMEN-1VIEW (KUB) DATE: 07/28/2017 2:05 PM INDICATION: \S\intubated, ngt placement verification \[id number] \S\[id number] COMPARISON: None FINDINGS: NG tube present with sideholes likely at GE junction. Gas-filled loops of small bowel are present with probable pneumoperitoneum. Skin wallace present. IMPRESSION: Pneumoperitoneum, presumed postsurgical. Advanced with of NG tube recommended. Gas-filled dilated loops of small bowel measuring up to 4 cm. Signed by: Dr. Malcolm Toribio MD on 07/28/2017 2:42 PM
[2017-07-28] MEDS: SILVER SULFADIAZINE 400GM CREAM TOP SCH (15:37)
[2017-07-28 16:02] LABS: BASOPHILS # (AUTO) 0.1 (0.0-0.1); BASOPHILS % 0.8 % (0.0-1.0); EOSINOPHILS % 0.2 % (0.0-6.0); HEMATOCRIT 27.7 % (38.2-49.6); HEMOGLOBIN 9.4 g/dL (14.0-18.0); LYMPHOCYTES # (AUTO) 0.5 (1.0-3.2); LYMPHOCYTES % 4.2 % (18.0-39.1); MEAN CORPUSCULAR HEMOGLOBIN 29.3 pg (28-32); MEAN CORPUSCULAR HGB CONC 33.9 g/dL (31-35); MEAN CORPUSCULAR VOLUME 86.3 fL (81-99); MONOCYTES # (AUTO) 0.8 (0.2-0.8); MONOCYTES % 6.3 % (4.4-11.3); NEUTROPHILS # (AUTO) 8.3 (2.1-6.9); NEUTROPHILS % 66.1 % (38.7-80.0); PLATELET COUNT 114 x10e3/uL (140-360); RED BLOOD COUNT 3.21 x10e6/uL (4.3-5.7); RED CELL DISTRIBUTION WIDTH 16.8 % (11.7-14.4)
--- NOTE | 2017-07-28 17:28 | Consultation ---
DATE OF CONSULTATION: July 28, 2017 CHIEF COMPLAINT: Abdominal pain. HISTORY OF PRESENT ILLNESS: The patient is a 76-year-old male admitted for C. diff colitis for a week duration with profuse diarrhea, dehydration, and hypertension. The patient's condition has worsened over the last few days in the hospital with increased abdominal pain and leukocytosis with worsening renal failure. PAST MEDICAL HISTORY: Significant for diabetes, hypertension, and coronary artery disease. PAST SURGICAL HISTORY: Positive for coronary artery angioplasty and cholecystectomy. ALLERGIES: THE PATIENT HAS ALLERGIC REACTION TO ZOCOR. SOCIAL HABITS: Denies smoking or alcohol abuse. REVIEW OF SYSTEMS: Short of breath and abdominal pain. PHYSICAL EXAMINATION: VITALS: Blood pressure 120/60 with a pulse in the 100s with temperature 97. GENERAL: Patient is awake, in [id number] distress. HEENT: Sclerae nonicteric. NECK: Supple. LUNGS: Clear. HEART: Tachycardic. No murmurs. ABDOMEN: Distended with diffuse tenderness and guarding with rebound. EXTREMITIES: Without cyanosis or edema. LABORATORY AND DIAGNOSTIC DATA: White cell count is 23,000, hemoglobin of 9, and platelet count 202. Creatinine of 4.2. Potassium 3.8. CT of the abdomen showed pancolitis with marked colonic wall thickening consistent with C. diff colitis. Bilateral pleural effusion. 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 PLAN: Discussed with family about total colectomy with ileostomy as last resort for infection control in the fulminant colitis. All attendant risks have been discussed with patient and family. Job#: [id number] ALOK
[2017-07-28] MEDS ORDERED: SODIUM CHLORIDE 0.9% 1000ML 2,000 ML ONE (17:35)
[2017-07-28] MEDS ORDERED: HEPARIN SOD (PORCINE) 1000 UNIT/ML SDV ONE (17:35)
[2017-07-28 17:52] LABS: ANION GAP 15.7 mmol/L (8-16); CREATININE, SERUM 4.18 mg/dL (0.72-1.25); POTASSIUM 3.7 mmol/L (3.5-5.1)
[2017-07-28 17:54] LABS: CALCIUM 6.1 mg/dL (8.4-10.2)
--- NOTE | 2017-07-28 18:50 | Operative Report ---
DATE OF PROCEDURE: July 28, 2017 PREOPERATIVE DIAGNOSIS: Fulminant colitis. POSTOPERATIVE DIAGNOSIS: Fulminant colitis. OPERATIVE PROCEDURE: Subtotal colectomy with end-ileostomy. ANESTHESIA: General endotracheal, Dr. Flynn. INDICATIONS: The patient is a 76-year-old male with history of abdominal pain and diarrhea with C. diff toxin positive. Patient has developed worsening sepsis from the colitis with requirement for vasopressor and dialysis. Patient has consented for a total colectomy with a colostomy with all attendant risks discussed. PROCEDURE FINDINGS: Fulminant colitis secondary to C. diff pseudomembranous infection. DESCRIPTION OF PROCEDURE: The patient was brought to the OR and intubated. Abdomen was prepped with alcohol and draped in a sterile fashion. A midline incision was made from xiphoid down to the pubic symphysis going through the midline linea alba. Adhesions from prior surgery encountered. Using scissors, lysis of adhesions was carried out. The right colon was mobilized along the white line of Toldt using the LigaSure instrument, taking down the hepatic flexure under direct vision. The mesentery to the right colon was also controlled near the mesenteric border of the right colon using the LigaSure instrument. We then proceeded to take down the splenic flexure under direct vision, taking care to preserve the spleen. The mesentery to the right transverse and left colon was taken close to the mesenteric border with the LigaSure instrument with good hemostasis. We then approached the pelvis where the rectum was dissected down from the deep pelvis by incising the posterior and anterior attachments and retraction was maintained in a cephalad direction on the rectum as we transected in the lower rectum with a TL-60 instrument. The specimens of the colon and upper rectum were removed out of the operative field. Hemostasis was achieved. Irrigation was carried out. We proceeded to create an ileostomy in the right lower quadrant through the rectus muscle, splitting the muscle out to the anterior and posterior fascia, has been incised in a transverse direction. The terminal ileum was exteriorized to that ostomy opening. We proceeded to close the abdomen by approximating the fascia with a running #0 PDS reinforced with #0 Vicryl interruptedly, and skin was stapled. The ileostomy was matured to the skin edge with 3-0 Vicryl stitches. Appliance inserted. Patient was transported intubated to recovery room and then ICU in guarded condition. Estimated blood loss was 50 mL. Job#: [id number] FRANCIS
[2017-07-28] MEDS ORDERED: PHENYLEPHRINE HCL 1% 10 MG/ML VIAL ONE (19:34)
[2017-07-28] MEDS ORDERED: ROCURONIUM BROMIDE 10 MG/ML 5ML VIAL ONE (19:34)
[2017-07-28] MEDS ORDERED: ISOFLURANE INHAL SOLN 250 ML BTL INH ONE (19:34)
[2017-07-28] MEDS ORDERED: CEFOXITIN SOD 1 GM VIAL ONE (19:34)
[2017-07-28] MEDS: ATORVASTATIN 40 MG TAB PO SCH (21:00)
[2017-07-29] VITALS (94 sets, daily range): BP systolic 61–131; BP diastolic 41–74
[2017-07-29] MEDS: VANCOMYCIN 250MG/5ML ORAL SOLN PO SCH ×4 (01:22→23:51)
[2017-07-29] MEDS: PANTOPRAZOL 40MG/SOD CHL 0.9% 50 ML IV SCH ×5 (01:22→21:09)
[2017-07-29] MEDS: METRONIDAZOLE 500MG/NS 100ML 100 ML IV SCH ×3 (05:21→21:09)
--- NOTE | 2017-07-29 06:08 | Diagnostic Imaging Report ---
EXAM: CHEST SINGLE (PORTABLE), AP 1 view INDICATION: Intubated COMPARISON: AP view of the chest July 28, 2017 FINDINGS: LINES/TUBES: Stable right internal jugular vein temporary hemodialysis catheter, central line, endotracheal tube, nasal/orogastric tube LUNGS: Bibasilar atelectasis PLEURA: Small bilateral pleural effusions HEART AND MEDIASTINUM: Stable BONES AND SOFT TISSUES: No acute findings. IMPRESSION: No interval change Signed by: Dr. Maddy Abel M.D. on 07/29/2017 6:05 AM
[2017-07-29 06:10] LABS: BASOPHILS # (AUTO) 0.1 (0.0-0.1); BASOPHILS % 0.7 % (0.0-1.0); EOSINOPHILS % 0.1 % (0.0-6.0); HEMOGLOBIN 8.9 g/dL (14.0-18.0); LYMPHOCYTES # (AUTO) 0.5 (1.0-3.2); LYMPHOCYTES % 4.1 % (18.0-39.1); MEAN CORPUSCULAR HGB CONC 34.2 g/dL (31-35); MEAN CORPUSCULAR VOLUME 84.7 fL (81-99); MONOCYTES % 8.9 % (4.4-11.3); NEUTROPHILS # (AUTO) 8.2 (2.1-6.9); NEUTROPHILS % 70.2 % (38.7-80.0); PLATELET COUNT 119 x10e3/uL (140-360); RED BLOOD COUNT 3.07 x10e6/uL (4.3-5.7); RED CELL DISTRIBUTION WIDTH 17.6 % (11.7-14.4)
[2017-07-29 06:31] LABS: ALBUMIN 1.3 g/dL (3.5-5.0); ALBUMIN/GLOBULIN RATIO 0.7 (0.8-2.0); ANION GAP 15.6 mmol/L (8-16); CALCIUM 7.2 mg/dL (8.4-10.2); CREATININE, SERUM 3.23 mg/dL (0.72-1.25); POTASSIUM 3.6 mmol/L (3.5-5.1)
[2017-07-29 07:03] LABS: MAGNESIUM 1.4 MG/DL (1.3-2.1)
[2017-07-29] MEDS: INSULIN REGULAR, HUMAN 100 UNIT/1 ML 3ML VIAL SQ SCH ×5 (07:30→23:51)
[2017-07-29] MEDS ORDERED: SODIUM CHLORIDE 0.9% 250ML 500 ML IV PRN (09:00)
[2017-07-29] MEDS ORDERED: HEPARIN SOD (PORCINE) 1000 UNIT/ML SDV IV PRN (09:00)
[2017-07-29] MEDS ORDERED: ALBUMIN 25% 12.5GM 0.25 GM/ML BTL IV PRN (09:00)
[2017-07-29] MEDS: FOLIC ACID 1 MG TAB PO SCH ×2 (09:00→10:55)
[2017-07-29] MEDS: FERROUS SULFATE 325 MG TAB PO SCH ×2 (09:00→10:55)
[2017-07-29] MEDS: LACTOBACILLUS ACIDOPHILUS CAPSULE PO SCH ×3 (09:00→20:32)
[2017-07-29] MEDS ORDERED: SODIUM CHLORIDE 0.9% 1000ML 2,000 ML IV PRN (09:00)
[2017-07-29] MEDS ORDERED: MANNITOL 25% 12.5GM/50 ML VIAL IV PRN (09:00)
[2017-07-29 09:37] LABS: ABG PCO2 30 mmHg (41-51); ABG PH 7.45 (7.31-7.41); ABG PO2 67 mmHg (80-105)
[2017-07-29 09:38] LABS: ABG HCO3 21 mmol/L (23-28)
[2017-07-29] MEDS: MORPHINE SULFATE 2 MG/ML SYR IV PRN ×2 (12:30→16:45)
[2017-07-29] MEDS: DEXTROSE 5%/0.45% SOD CHL 1,000 ML IV SCH ×2 (14:30→21:09)
[2017-07-29] MEDS: SILVER SULFADIAZINE 400GM CREAM TOP SCH (16:30)
[2017-07-29] MEDS ORDERED: MAGNESIUM SULFATE 2GM/50ML 50 ML IV ONE ×2 (17:36→18:00)
[2017-07-29] MEDS: ATORVASTATIN 40 MG TAB PO SCH (20:32)
[2017-07-30] VITALS (92 sets, daily range): BP systolic 95–143; BP diastolic 42–89
[2017-07-30] MEDS: METRONIDAZOLE 500MG/NS 100ML 100 ML IV SCH ×3 (05:24→21:57)
[2017-07-30] MEDS: PANTOPRAZOL 40MG/SOD CHL 0.9% 50 ML IV SCH ×5 (05:24→23:15)
[2017-07-30] MEDS: VANCOMYCIN 250MG/5ML ORAL SOLN PO SCH ×3 (05:24→18:00)
[2017-07-30] MEDS: INSULIN REGULAR, HUMAN 100 UNIT/1 ML 3ML VIAL SQ SCH ×3 (05:26→18:00)
[2017-07-30] MEDS: MORPHINE SULFATE 2 MG/ML SYR IV PRN (05:36)
[2017-07-30 06:17] LABS: BASOPHILS % 0.3 % (0.0-1.0); EOSINOPHILS % 0.3 % (0.0-6.0); HEMATOCRIT 25.5 % (38.2-49.6); HEMOGLOBIN 8.8 g/dL (14.0-18.0); LYMPHOCYTES # (AUTO) 0.5 (1.0-3.2); LYMPHOCYTES % 6.7 % (18.0-39.1); MEAN CORPUSCULAR HEMOGLOBIN 28.9 pg (28-32); MEAN CORPUSCULAR HGB CONC 34.5 g/dL (31-35); MEAN CORPUSCULAR VOLUME 83.9 fL (81-99); MONOCYTES # (AUTO) 0.8 (0.2-0.8); MONOCYTES % 9.7 % (4.4-11.3); NEUTROPHILS # (AUTO) 5.6 (2.1-6.9); NEUTROPHILS % 72.5 % (38.7-80.0); RED BLOOD COUNT 3.04 x10e6/uL (4.3-5.7); RED CELL DISTRIBUTION WIDTH 17.9 % (11.7-14.4)
[2017-07-30 06:52] LABS: PLATELET COUNT 45 x10e3/uL (140-360)
[2017-07-30 06:54] LABS: ALBUMIN 1.2 g/dL (3.5-5.0); ALBUMIN/GLOBULIN RATIO 0.5 (0.8-2.0); ANION GAP 12.3 mmol/L (8-16); CALCIUM 7.2 mg/dL (8.4-10.2); CREATININE, SERUM 2.93 mg/dL (0.72-1.25); MAGNESIUM 2.1 MG/DL (1.3-2.1); PHOSPHORUS 4.9 MG/DL (2.3-4.7); POTASSIUM 3.3 mmol/L (3.5-5.1)
[2017-07-30] MEDS: FERROUS SULFATE 325 MG TAB PO SCH (07:30)
[2017-07-30] MEDS: FOLIC ACID 1 MG TAB PO SCH (07:31)
[2017-07-30] MEDS: LACTOBACILLUS ACIDOPHILUS CAPSULE PO SCH ×2 (07:31→21:00)
[2017-07-30 08:07] LABS: INR 1.44; PROTHROMBIN TIME 16.5 seconds (11.9-14.5)
[2017-07-30] MEDS: DEXTROSE 5%/0.45% SOD CHL 1,000 ML IV SCH ×2 (08:45→21:00)
[2017-07-30 08:57] LABS: BAND NEUTROPHILS % (MANUAL) 2 %; LYMPHOCYTES % (MANUAL) 5 % (19-48); METAMYELOCYTES % (MANUAL) 2 % (0-0); MONOCYTES % (MANUAL) 7 % (3.4-9.0); MYELOCYTES % (MANUAL) 3 % (0-0); NEUTROPHILS % (MANUAL) 81 % (40-74)
[2017-07-30 08:58] LABS: ANISOCYTOSIS MODERATE; BURR CELLS SLIGHT; HYPOCHROMASIA SLIGHT; PLATELET ESTIMATE MODERATELY DECREASED; POIKILOCYTOSIS SLIGHT; RBC MORPHOLOGY COMMENT ABNORMAL
[2017-07-30 09:00] LABS: ACANTHOCYTES FEW; PLATELET MORPHOLOGY COMMENT FEW LARGE; SMUDGE CELLS FEW
[2017-07-30] MEDS: SILVER SULFADIAZINE 400GM CREAM TOP SCH (09:00)
[2017-07-30] MEDS ORDERED: POTASSIUM CHLORIDE 20MEQ/100ML 200 ML IV ONE (11:00)
[2017-07-30 11:10] LABS: NEUTROPHILS % (MANUAL) 35 % (40-74)
[2017-07-30 11:11] LABS: BAND NEUTROPHILS % (MANUAL) 2 %; EOSINOPHILS % (MANUAL) 32 % (0-7); LYMPHOCYTES % (MANUAL) 1 % (19-48); METAMYELOCYTES % (MANUAL) 12 % (0-0); MONOCYTES % (MANUAL) 1 % (3.4-9.0); MYELOCYTES % (MANUAL) 4 % (0-0); PLATELET ESTIMATE ADEQUATE
[2017-07-30 11:12] LABS: PLATELET MORPHOLOGY COMMENT NORMAL; RBC MORPHOLOGY COMMENT NORMAL
[2017-07-30] MEDS: FUROSEMIDE INJ 10 MG/ML 4 ML VIAL IV SCH ×2 (11:48→18:00)
[2017-07-30] MEDS: ATORVASTATIN 40 MG TAB PO SCH (21:00)
[2017-07-30] MEDS: CENTRAL TPN FORMULA 1 BAG IV SCH (21:00)
[2017-07-31] VITALS (100 sets, daily range): BP systolic 85–149; BP diastolic 56–92
[2017-07-31] MEDS: VANCOMYCIN 250MG/5ML ORAL SOLN PO SCH ×5 (00:11→23:59)
[2017-07-31] MEDS: FUROSEMIDE INJ 10 MG/ML 4 ML VIAL IV SCH ×5 (00:11→23:59)
[2017-07-31] MEDS: PANTOPRAZOL 40MG/SOD CHL 0.9% 50 ML IV SCH ×4 (03:00→19:15)
[2017-07-31] MEDS: DEXTROSE 5%/0.45% SOD CHL 1,000 ML IV SCH ×2 (05:00→14:45)
[2017-07-31] MEDS: INSULIN REGULAR, HUMAN 100 UNIT/1 ML 3ML VIAL SQ SCH ×4 (06:00→17:54)
[2017-07-31] MEDS: METRONIDAZOLE 500MG/NS 100ML 100 ML IV SCH ×3 (06:00→21:30)
[2017-07-31 06:16] LABS: BASOPHILS % 0.2 % (0.0-1.0); EOSINOPHILS # (AUTO) 0.1 (0.0-0.4); EOSINOPHILS % 1.1 % (0.0-6.0); HEMATOCRIT 26.1 % (38.2-49.6); HEMOGLOBIN 8.9 g/dL (14.0-18.0); LYMPHOCYTES # (AUTO) 0.5 (1.0-3.2); LYMPHOCYTES % 5.9 % (18.0-39.1); MEAN CORPUSCULAR HEMOGLOBIN 29.1 pg (28-32); MEAN CORPUSCULAR HGB CONC 34.1 g/dL (31-35); MEAN CORPUSCULAR VOLUME 85.3 fL (81-99); MONOCYTES # (AUTO) 0.8 (0.2-0.8); MONOCYTES % 9.9 % (4.4-11.3); NEUTROPHILS # (AUTO) 6.5 (2.1-6.9); NEUTROPHILS % 76.9 % (38.7-80.0); PLATELET COUNT 61 x10e3/uL (140-360); RED BLOOD COUNT 3.06 x10e6/uL (4.3-5.7); RED CELL DISTRIBUTION WIDTH 18.2 % (11.7-14.4)
[2017-07-31 06:44] LABS: ALBUMIN 1.3 g/dL (3.5-5.0); ALBUMIN/GLOBULIN RATIO 0.6 (0.8-2.0); ANION GAP 9.4 mmol/L (8-16); CALCIUM 7.5 mg/dL (8.4-10.2); CREATININE, SERUM 3.83 mg/dL (0.72-1.25); POTASSIUM 3.4 mmol/L (3.5-5.1)
[2017-07-31 06:57] LABS: MAGNESIUM 2.1 MG/DL (1.3-2.1); PHOSPHORUS 4.2 MG/DL (2.3-4.7)
[2017-07-31] MEDS: FERROUS SULFATE 325 MG TAB PO SCH (09:00)
[2017-07-31] MEDS: LACTOBACILLUS ACIDOPHILUS CAPSULE PO SCH ×2 (09:00→21:00)
[2017-07-31] MEDS: SILVER SULFADIAZINE 400GM CREAM TOP SCH (09:00)
[2017-07-31] MEDS: FOLIC ACID 1 MG TAB PO SCH (09:00)
[2017-07-31 11:19] LABS: ANISOCYTOSIS MODERATE; BAND NEUTROPHILS % (MANUAL) 1 %; BURR CELLS SLIGHT; EOSINOPHILS % (MANUAL) 1 % (0-7); HYPOCHROMASIA SLIGHT; LYMPHOCYTES % (MANUAL) 8 % (19-48); METAMYELOCYTES % (MANUAL) 1 % (0-0); MONOCYTES % (MANUAL) 7 % (3.4-9.0); MYELOCYTES % (MANUAL) 2 % (0-0); NEUTROPHILS % (MANUAL) 79 % (40-74); PROMYELOCYTES % (MANUAL) 1 % (0-0); RBC MORPHOLOGY COMMENT ABNORMAL
[2017-07-31 11:20] LABS: PLATELET ESTIMATE MODERATELY DECREASED; PLATELET MORPHOLOGY COMMENT NORMAL
[2017-07-31] MEDS ORDERED: KETAMINE HCL INJ 50 MG/ML 10 ML VIAL ONE (17:42)
[2017-07-31] MEDS ORDERED: FENTANYL CITRATE/PF 100MCG/2 ML INJ ONE (17:42)
[2017-07-31] MEDS ORDERED: MIDAZOLAM HCL 2 MG/2 ML VIAL ONE (17:42)
[2017-07-31] MEDS: CENTRAL TPN FORMULA 1 BAG IV SCH (20:50)
[2017-07-31] MEDS: ATORVASTATIN 40 MG TAB PO SCH (21:00)
[2017-08-01] VITALS (36 sets, daily range): BP systolic 89–124; BP diastolic 47–88
[2017-08-01] MEDS: INSULIN REGULAR, HUMAN 100 UNIT/1 ML 3ML VIAL SQ SCH ×4 (00:15→16:26)
[2017-08-01] MEDS: PANTOPRAZOL 40MG/SOD CHL 0.9% 50 ML IV SCH (01:00)
[2017-08-01] MEDS: DEXTROSE 5%/0.45% SOD CHL 1,000 ML IV SCH (02:00)
[2017-08-01] MEDS: FUROSEMIDE INJ 10 MG/ML 4 ML VIAL IV SCH ×4 (05:15→23:05)
[2017-08-01] MEDS: METRONIDAZOLE 500MG/NS 100ML 100 ML IV SCH ×3 (05:15→22:40)
[2017-08-01] MEDS: VANCOMYCIN 250MG/5ML ORAL SOLN PO SCH ×4 (05:15→23:05)
[2017-08-01 06:03] LABS: BASOPHILS % 0.2 % (0.0-1.0); EOSINOPHILS # (AUTO) 0.1 (0.0-0.4); EOSINOPHILS % 0.9 % (0.0-6.0); HEMATOCRIT 25.4 % (38.2-49.6); HEMOGLOBIN 8.7 g/dL (14.0-18.0); LYMPHOCYTES # (AUTO) 0.4 (1.0-3.2); LYMPHOCYTES % 5.6 % (18.0-39.1); MEAN CORPUSCULAR HEMOGLOBIN 29.5 pg (28-32); MEAN CORPUSCULAR HGB CONC 34.3 g/dL (31-35); MEAN CORPUSCULAR VOLUME 86.1 fL (81-99); MONOCYTES # (AUTO) 0.5 (0.2-0.8); MONOCYTES % 8.1 % (4.4-11.3); NEUTROPHILS # (AUTO) 5.3 (2.1-6.9); NEUTROPHILS % 82.5 % (38.7-80.0); PLATELET COUNT 51 x10e3/uL (140-360); RED BLOOD COUNT 2.95 x10e6/uL (4.3-5.7)
[2017-08-01 06:31] LABS: ALBUMIN 1.3 g/dL (3.5-5.0); ALBUMIN/GLOBULIN RATIO 0.5 (0.8-2.0); ANION GAP 10.6 mmol/L (8-16); CALCIUM 7.3 mg/dL (8.4-10.2); CREATININE, SERUM 2.93 mg/dL (0.72-1.25); POTASSIUM 3.6 mmol/L (3.5-5.1)
[2017-08-01 07:24] LABS: BAND NEUTROPHILS % (MANUAL) 1 %; LYMPHOCYTES % (MANUAL) 4 % (19-48); MONOCYTES % (MANUAL) 8 % (3.4-9.0); NEUTROPHILS % (MANUAL) 87 % (40-74)
[2017-08-01 07:25] LABS: ACANTHOCYTES FEW; ANISOCYTOSIS MODE; ELLIPTOCYTE, RBC SLIGHT; HYPOCHROMASIA SLIGHT; PLATELET ESTIMATE MODERATELY DECREASED; POIKILOCYTOSIS SLIGHT; RBC MORPHOLOGY COMMENT ABNORMAL
[2017-08-01 07:26] LABS: PLATELET MORPHOLOGY COMMENT NORMAL
[2017-08-01] MEDS: FERROUS SULFATE 325 MG TAB PO SCH (09:00)
[2017-08-01] MEDS: FOLIC ACID 1 MG TAB PO SCH (09:00)
[2017-08-01] MEDS: LACTOBACILLUS ACIDOPHILUS CAPSULE PO SCH ×2 (09:00→22:40)
[2017-08-01 09:09] LABS: MAGNESIUM 1.6 MG/DL (1.3-2.1); PHOSPHORUS 2.4 MG/DL (2.3-4.7)
[2017-08-01] MEDS: SILVER SULFADIAZINE 400GM CREAM TOP SCH (10:31)
[2017-08-01] MEDS ORDERED: MAGNESIUM SULFATE 2GM/50ML 50 ML IV ONE (14:30)
[2017-08-01] MEDS: MUPIROCIN 2% OINT 22 GM TUBE TOP SCH (16:11)
[2017-08-01] MEDS: HYDROCODONE/APAP 7.5MG-325MG 1 EA TAB PO PRN (16:55)
[2017-08-01] MEDS: CENTRAL TPN FORMULA 1 BAG IV SCH (20:45)
[2017-08-01] MEDS: ATORVASTATIN 40 MG TAB PO SCH (22:40)
[2017-08-02] VITALS (23 sets, daily range): BP systolic 94–136; BP diastolic 57–79
[2017-08-02] MEDS: INSULIN REGULAR, HUMAN 100 UNIT/1 ML 3ML VIAL SQ SCH ×5 (00:35→21:43)
[2017-08-02] MEDS: METRONIDAZOLE 500MG/NS 100ML 100 ML IV SCH (05:10)
[2017-08-02] MEDS: VANCOMYCIN 250MG/5ML ORAL SOLN PO SCH ×3 (05:10→18:20)
[2017-08-02] MEDS: FUROSEMIDE INJ 10 MG/ML 4 ML VIAL IV SCH ×3 (05:10→18:20)
[2017-08-02 06:41] LABS: ALBUMIN 1.2 g/dL (3.5-5.0); ALBUMIN/GLOBULIN RATIO 0.5 (0.8-2.0); ANION GAP 10.5 mmol/L (8-16); CALCIUM 7.7 mg/dL (8.4-10.2); CREATININE, SERUM 3.32 mg/dL (0.72-1.25); MAGNESIUM 2.1 MG/DL (1.3-2.1); PHOSPHORUS 2.1 MG/DL (2.3-4.7); POTASSIUM 3.5 mmol/L (3.5-5.1)
--- NOTE | 2017-08-02 07:43 | Diagnostic Imaging Report ---
PROCEDURE:ULTRASOUND GUIDANCE FOR VASCULAR ACCESS COMPARISON:None. INDICATIONS:Temporary HD Cath FINDINGS:Right internal jugular vein is noted to be patent. Ultrasound guidance was utilized for access for PICC line placement. CONCLUSION:Patent right internal jugular vein. Successful ultrasound guidance for central venous catheter placement. Dictated by: Cristian Luis M.D. on 08/02/2017 at 7:45 Electronically approved by: Cristian Luis M.D. on 08/02/2017 at 7:45
[2017-08-02] MEDS: FOLIC ACID 1 MG TAB PO SCH (09:49)
[2017-08-02] MEDS: MUPIROCIN 2% OINT 22 GM TUBE TOP SCH ×2 (09:49→17:01)
[2017-08-02] MEDS: FERROUS SULFATE 325 MG TAB PO SCH (09:49)
[2017-08-02] MEDS: LACTOBACILLUS ACIDOPHILUS CAPSULE PO SCH ×2 (09:49→21:41)
[2017-08-02] MEDS: HYDROCODONE/APAP 7.5MG-325MG 1 EA TAB PO PRN ×2 (11:11→18:21)
--- NOTE | 2017-08-02 11:40 | Diagnostic Imaging Report ---
PROCEDURE:NON-TUNNELLED CVC CATH PLACMNT COMPARISON:None. INDICATIONS: Renal failure. COMPLICATIONS: None MEDICATIONS: None BLOOD LOSS: Less than 2 cc. PROCEDURE: The patient was placed supine on the fluoroscopic table. Ultrasonographic evaluation of the right neck demonstrated a patent and compressible right internal jugular vein. The right neck was prepped and draped in the usual sterile fashion. 1% lidocaine was infused into the subcutaneous tissues for local anesthesia. Utilizing direct sonographic guidance, a 21 gauge needle was advanced into the right internal jugular vein. A 0.018 inch wire was advanced centrally. An access sheath was placed over the wire to secure the vascular access. The wire was upsized to a 0.035 inch wire. A single dilation was performed over the wire. A double lumen central venous catheter was advanced over the wire. The wire was removed. The catheter tip was positioned within the right atrium. The ports demonstrated proper function with aspiration and flush of sterile saline. The catheter ports were flushed with sterile saline. The catheter was secured to the skin with 3-0 Ethilon suture. A sterile dressing was applied. There were no immediate complications. The patient tolerated the procedure well. The patient was transferred to the post procedure in stable unchanged condition further monitoring. CONCLUSION: Successful placement of a right internal jugular temporary central venous dialysis catheter utilizing ultrasound and fluoroscopic guidance. Dictated by: Cristian Luis M.D. on 08/02/2017 at 11:42 Electronically approved by: Cristian Luis M.D. on 08/02/2017 at 11:42
[2017-08-02] MEDS ORDERED: CENTRAL TPN FORMULA 1 BAG IV SCH (13:09)
[2017-08-02] MEDS ORDERED: POTASSIUM PHOSPHATE 30 MM in SODIUM CHLORIDE 0.9% 250ML 250 ML IV ONE (16:30)
[2017-08-02] MEDS ORDERED: SODIUM CHLORIDE 0.9% 250ML 250 ML ONE (16:34)
--- NOTE | 2017-08-02 17:47 | Diagnostic Imaging Report ---
PROCEDURE:X-RAY ABDOMEN - KUB COMPARISON:[facility], DX, ABDOMEN-1VIEW (KUB), 07/28/2017, 14:33. INDICATIONS:POST OP DISTENTION FINDINGS: Multiple air-filled, dilated loops of small bowel are again noted in the right and left abdomen, with maximal measurement of 4.0 cm, slightly more prominent in the left abdomen when compared to prior exam. No definite large bowel dilation is identified. No abnormal calcifications overlie the genitourinary system. No acute bony abnormalities. Metallic wallace project in the abdominal and pelvic midline. CONCLUSION: 1. Multiple air-filled, dilated loops of small bowel are again noted, slightly more prominent in the left abdomen when compared to prior exam, suggesting postoperative ileus. Vikash Zendejas M.D. Dictated by: Vikash Zendejas M.D. on 08/02/2017 at 17:48 Electronically approved by: Vikash Zendejas M.D. on 08/02/2017 at 17:48
[2017-08-02] MEDS: CENTRAL TPN FORMULA 1 BAG IV SCH (20:30)
[2017-08-02] MEDS: ATORVASTATIN 40 MG TAB PO SCH (21:41)
[2017-08-03] VITALS (19 sets, daily range): BP systolic 83–113; BP diastolic 50–80
[2017-08-03] MEDS: FUROSEMIDE INJ 10 MG/ML 4 ML VIAL IV SCH ×3 (00:20→12:00)
[2017-08-03] MEDS: VANCOMYCIN 250MG/5ML ORAL SOLN PO SCH ×5 (00:20→23:57)
[2017-08-03] MEDS ORDERED: PANTOPRAZOLE 40 MG 10ML VIAL IV STA (02:11)
[2017-08-03] MEDS ORDERED: PANTOPRAZOL 40MG/SOD CHL 0.9% 50 ML IV ONE ×2 (02:19→06:33)
[2017-08-03] MEDS: PANTOPRAZOLE INJ 40 MG in SODIUM CHLORIDE 0.9% 50ML 50 ML IV SCH ×5 (02:50→22:15)
[2017-08-03] MEDS ORDERED: ONDANSETRON HCL INJ 2 MG/ML VIAL IV STA (03:01)
[2017-08-03] MEDS ORDERED: ONDANSETRON HCL INJ 2 MG/ML VIAL IV PRN (03:15)
[2017-08-03] MEDS: SODIUM CHLORIDE 0.9% 250ML IRRIG IR SCH ×6 (03:20→22:30)
[2017-08-03 03:35] LABS: AMYLASE 95 U/L (25-125); LIPASE 93 U/L (8-78)
--- NOTE | 2017-08-03 03:45 | Diagnostic Imaging Report ---
ABDOMEN-1VIEW (KUB) Clinical history: Small bowel obstruction Technique: AP view abdomen Comparison: Previous day Findings: NG tube terminates over the left upper quadrant. Persistent diffusely dilated loops of small bowel. Mild high density which may reflect contrast. Overlying skin wallace. Impression: Findings favored to reflect ileus. Attention on follow-up. Signed by: Dr Latasha Conn MD on 08/03/2017 3:42 AM
[2017-08-03 06:21] LABS: BASOPHILS # (AUTO) 0.1 (0.0-0.1); BASOPHILS % 0.4 % (0.0-1.0); EOSINOPHILS # (AUTO) 0.4 (0.0-0.4); EOSINOPHILS % 1.5 % (0.0-6.0); HEMATOCRIT 23.3 % (38.2-49.6); LYMPHOCYTES % 8.2 % (18.0-39.1); MEAN CORPUSCULAR HGB CONC 32.2 g/dL (31-35); MONOCYTES # (AUTO) 1.9 (0.2-0.8); MONOCYTES % 7.8 % (4.4-11.3); NEUTROPHILS # (AUTO) 19.8 (2.1-6.9); NEUTROPHILS % 80.3 % (38.7-80.0); PLATELET COUNT 410 x10e3/uL (140-360); RED BLOOD COUNT 2.59 x10e6/uL (4.3-5.7); RED CELL DISTRIBUTION WIDTH 18.2 % (11.7-14.4)
[2017-08-03 06:34] LABS: HEMOGLOBIN 7.5 g/dL (14.0-18.0)
[2017-08-03 06:52] LABS: ALANINE AMINOTRANSFERASE 12 IU/L (0-55); ALBUMIN 2.2 g/dL (3.5-5.0); ALBUMIN/GLOBULIN RATIO 0.9 (0.8-2.0); ALKALINE PHOSPHATASE 58 IU/L (40-150); ANION GAP 9.2 mmol/L (8-16); BLOOD UREA NITROGEN 22 mg/dL (7-26); BUN/CREATININE RATIO 37 (6-25); CALCIUM 7.8 mg/dL (8.4-10.2); CARBON DIOXIDE 30 mmol/L (22-29); CHLORIDE 98 mmol/L (98-107); CREATININE, SERUM 0.59 mg/dL (0.72-1.25); EST GLOMERULAR FILTRATION RATE > 60 ML/MIN (60-); GLUCOSE 197 mg/dL (74-118); POTASSIUM 4.2 mmol/L (3.5-5.1); SODIUM 133 mmol/L (136-145)
[2017-08-03 07:03] LABS: MAGNESIUM 1.9 MG/DL (1.3-2.1); PHOSPHORUS 2.6 MG/DL (2.3-4.7)
[2017-08-03] MEDS: INSULIN REGULAR, HUMAN 100 UNIT/1 ML 3ML VIAL SQ SCH ×4 (07:52→21:47)
--- NOTE | 2017-08-03 09:25 | Diagnostic Imaging Report ---
EXAMINATION: ABDOMEN-1VIEW (KUB) 08/03/2017 9:00 AM COMPARISON: None INDICATION: Suspected ileus DISCUSSION: 1 view of the abdomen (AP supine) Diffuse dilatation of all the small bowel loops. No colonic dilatation. No evidence of pneumoperitoneum. Enteric tube tip projected over the gastric body. No abnormal calcifications projected over the urinary tracts. Skin wallace, unchanged. Degenerative changes of the thoracic and lumbar spine. IMPRESSION: Stable diffuse dilatation of the small bowel loops. Ileus is favored over obstruction. Eliud Nj MD Signed by: Dr. Eliud Nj M.D. on 08/03/2017 9:22 AM
[2017-08-03] MEDS: MUPIROCIN 2% OINT 22 GM TUBE TOP SCH ×2 (09:39→17:06)
[2017-08-03] MEDS: FERROUS SULFATE 325 MG TAB PO SCH (09:42)
[2017-08-03] MEDS: LACTOBACILLUS ACIDOPHILUS CAPSULE PO SCH ×2 (09:42→20:35)
[2017-08-03] MEDS: FOLIC ACID 1 MG TAB PO SCH (09:42)
[2017-08-03 11:27] LABS: BAND NEUTROPHILS % (MANUAL) 2 %; LYMPHOCYTES % (MANUAL) 8 % (19-48); MONOCYTES % (MANUAL) 12 % (3.4-9.0); NEUTROPHILS % (MANUAL) 78 % (40-74); PLATELET ESTIMATE ADEQUATE; PLATELET MORPHOLOGY COMMENT NORMAL; RBC MORPHOLOGY COMMENT NORMAL
[2017-08-03 11:40] LABS: % IRON SATURATION 12 % (15-50); IRON 13 ug/dL (65-175); TOTAL IRON BINDING CAPACITY 113 ug/dL (261-478); TRANSFERRIN 81 mg/dL (174-364)
--- NOTE | 2017-08-03 12:55 | Diagnostic Imaging Report ---
EXAMINATION: CHEST SINGLE (PORTABLE) 08/03/2017 11:13 AM COMPARISON: 07/29/2017 INDICATION: Shortness of breath DISCUSSION: LINES: Right IJ sheath has its tip in the right atrium. Right internal jugular central venous catheter has its tip at the cavoatrial junction. Enteric tube has its tip in the gastric body. The patient has been extubated. LUNGS PLEURA: Low lung volumes with basilar atelectasis and small pleural effusions, right greater than left. HEART AND MEDIASTINUM: Normal heart size. Tortuous thoracic aorta. BONES AND SOFT TISSUES: No acute osseous lesion. The soft tissues are normal. IMPRESSION: Low lung volumes with basilar atelectasis and small bilateral pleural effusions. This is unchanged. The patient has been extubated. Lines and tubes are otherwise unchanged. Eliud Nj MD Signed by: Dr. Eliud Nj M.D. on 08/03/2017 12:52 PM
--- NOTE | 2017-08-03 16:00 | Consultation ---
DATE OF CONSULTATION: August 03, 2017 ENDOCRINE CONSULTATION Patient of Dr. Grant. Thank you very much for referring this patient. This is a 76-year-old white male gentleman who initially came to the hospital with a history of diarrhea, hypotension and sepsis. The patient was found to have C. diff. He underwent surgery. Patient is a known diabetic in the past and has been on metformin. During the hospital stay, the patient was started on TPN, and as a result of that his blood sugars have been significantly elevated. Patient had a subtotal colectomy and ileostomy done for the severe C. diff. He also has a history of hypertension and coronary artery disease. His blood sugars have been in 300-350 range. The patient is presently on dialysis. PHYSICAL EXAMINATION GENERAL: Today, the patient is alert, awake and a little bit apprehensive. Looks very emaciated. VITALS: His heart rate is around 100, blood pressure is 110/70 mmHg. CHEST: Bilateral vesicular breathing. He has mild bronchospasm. CARDIOVASCULAR: First and 2nd heard sounds. There is no 3rd or 4th heart sound. Ejection murmur grade 2/6. Patient has evidence of diabetic sensory neuropathy in both lower extremities and distended abdomen. The blood sugars are in the range of 307-317. His BUN and creatinine are presently 22 and 0.59. Hemoglobin is 7.5 with a hematocrit of 23.3. His white count is elevated at 24.5. CLINICAL IMPRESSION 1. Diabetes mellitus, presently on total parenteral nutrition. 2. Sepsis. 3. Clostridium difficile colitis: Status post colectomy. 4. Coronary artery disease. PLAN: At this time, is to increase insulin, the TPN and also put him on Levemir 10 units once a day. Monitor the blood sugars closely and adjust insulin dose. Will also do a hemoglobin A1c and thyroid function test. Thanks for referring this patient. I will be following this patient with you. Job#: [id number] FREDDY ULLOA
[2017-08-03] MEDS ORDERED: INSULIN LISPRO 100 UNIT/1 ML 3ML VIAL SQ SCH (16:30)
[2017-08-03 16:53] LABS: BASOPHILS % 0.1 % (0.0-1.0); EOSINOPHILS # (AUTO) 0.1 (0.0-0.4); EOSINOPHILS % 0.3 % (0.0-6.0); HEMATOCRIT 24.9 % (38.2-49.6); HEMOGLOBIN 8.4 g/dL (14.0-18.0); LYMPHOCYTES # (AUTO) 0.5 (1.0-3.2); LYMPHOCYTES % 3.2 % (18.0-39.1); MEAN CORPUSCULAR HEMOGLOBIN 28.7 pg (28-32); MEAN CORPUSCULAR HGB CONC 33.7 g/dL (31-35); MONOCYTES # (AUTO) 0.6 (0.2-0.8); MONOCYTES % 3.6 % (4.4-11.3); NEUTROPHILS # (AUTO) 14.3 (2.1-6.9); NEUTROPHILS % 92.2 % (38.7-80.0); PLATELET COUNT 98 x10e3/uL (140-360); RED BLOOD COUNT 2.93 x10e6/uL (4.3-5.7); RED CELL DISTRIBUTION WIDTH 18.4 % (11.7-14.4)
[2017-08-03 17:18] LABS: BAND NEUTROPHILS % (MANUAL) 2 %; LYMPHOCYTES % (MANUAL) 4 % (19-48); MONOCYTES % (MANUAL) 5 % (3.4-9.0); NEUTROPHILS % (MANUAL) 89 % (40-74); PLATELET ESTIMATE SLIGHTLY DECREASED; PLATELET MORPHOLOGY COMMENT NORMAL; RBC MORPHOLOGY COMMENT NORMAL
[2017-08-03] MEDS: INSULIN DETEMIR 100 UNIT/ML PEN SQ SCH (17:21)
[2017-08-03 17:28] LABS: FREE T4 (FREE THYROXINE) 0.73 ng/dL (0.9-1.8); THYROID STIMULATING HORMONE 1.449 uIU/mL (0.350-4.940)
[2017-08-03] MEDS ORDERED: ONDANSETRON HCL 4 MG ORAL DISINTEGRATING TAB PO PRN (17:45)
[2017-08-03] MEDS ORDERED: SODIUM CHLORIDE 0.9% 250ML 250 ML ONE (19:05)
[2017-08-03] MEDS: ATORVASTATIN 40 MG TAB PO SCH (20:35)
[2017-08-03] MEDS: CENTRAL TPN FORMULA 1 BAG IV SCH (20:50)
[2017-08-04] VITALS (35 sets, daily range): BP systolic 84–125; BP diastolic 46–73
[2017-08-04] MEDS: PANTOPRAZOLE INJ 40 MG in SODIUM CHLORIDE 0.9% 50ML 50 ML IV SCH ×5 (01:40→20:30)
[2017-08-04 02:10] LABS: INR 1.79; PROTHROMBIN TIME 19.5 seconds (11.9-14.5)
[2017-08-04 02:11] LABS: PARTIAL THROMBOPLASTIN TIME 37.8 seconds (23.8-35.5)
[2017-08-04] MEDS: SODIUM CHLORIDE 0.9% 250ML IRRIG IR SCH ×6 (02:30→22:40)
[2017-08-04] MEDS ORDERED: PANTOPRAZOL 40MG/SOD CHL 0.9% 50 ML IV ONE ×3 (04:15→20:25)
[2017-08-04] MEDS: VANCOMYCIN 250MG/5ML ORAL SOLN PO SCH ×4 (05:30→23:15)
--- NOTE | 2017-08-04 06:01 | Diagnostic Imaging Report ---
ABDOMEN-1VIEW (KUB) Clinical history: No bowel ileus Technique: AP view abdomen Comparison: Previous day Findings: Hemidiaphragms are excluded. NG tube noted over the left upper quadrant. Persistent diffusely dilated loops of small bowel. Right lower quadrant ostomy. Overlying skin wallace. Impression: Persistent small bowel ileus. Attention on follow-up. Signed by: Dr Latasha Conn MD on 08/04/2017 5:58 AM
[2017-08-04 06:08] LABS: BASOPHILS % 0.1 % (0.0-1.0); EOSINOPHILS # (AUTO) 0.1 (0.0-0.4); HEMATOCRIT 22.8 % (38.2-49.6); HEMOGLOBIN 7.7 g/dL (14.0-18.0); LYMPHOCYTES # (AUTO) 0.6 (1.0-3.2); MEAN CORPUSCULAR HEMOGLOBIN 29.2 pg (28-32); MEAN CORPUSCULAR HGB CONC 33.8 g/dL (31-35); MEAN CORPUSCULAR VOLUME 86.4 fL (81-99); MONOCYTES # (AUTO) 0.6 (0.2-0.8); MONOCYTES % 4.6 % (4.4-11.3); NEUTROPHILS # (AUTO) 11.1 (2.1-6.9); NEUTROPHILS % 88.7 % (38.7-80.0); PLATELET COUNT 109 x10e3/uL (140-360); RED BLOOD COUNT 2.64 x10e6/uL (4.3-5.7); RED CELL DISTRIBUTION WIDTH 18.4 % (11.7-14.4)
[2017-08-04 06:28] LABS: ALBUMIN 1.1 g/dL (3.5-5.0); ALBUMIN/GLOBULIN RATIO 0.5 (0.8-2.0); ANION GAP 12.6 mmol/L (8-16); CALCIUM 8.1 mg/dL (8.4-10.2); CREATININE, SERUM 3.76 mg/dL (0.72-1.25); POTASSIUM 3.6 mmol/L (3.5-5.1)
[2017-08-04 07:09] LABS: MAGNESIUM 2.1 MG/DL (1.3-2.1); PHOSPHORUS 3.9 MG/DL (2.3-4.7)
[2017-08-04] MEDS: INSULIN REGULAR, HUMAN 100 UNIT/1 ML 3ML VIAL SQ SCH ×2 (07:55→11:30)
[2017-08-04] MEDS: LACTOBACILLUS ACIDOPHILUS CAPSULE PO SCH ×2 (08:14→22:40)
[2017-08-04] MEDS: FOLIC ACID 1 MG TAB PO SCH (08:14)
[2017-08-04] MEDS: FERROUS SULFATE 325 MG TAB PO SCH (08:14)
[2017-08-04] MEDS: INSULIN DETEMIR 100 UNIT/ML PEN SQ SCH (08:14)
[2017-08-04] MEDS: MUPIROCIN 2% OINT 22 GM TUBE TOP SCH ×2 (10:05→17:33)
[2017-08-04 11:12] LABS: BAND NEUTROPHILS % (MANUAL) 8 %; EOSINOPHILS % (MANUAL) 2 % (0-7); LYMPHOCYTES % (MANUAL) 9 % (19-48); MONOCYTES % (MANUAL) 3 % (3.4-9.0); NEUTROPHILS % (MANUAL) 78 % (40-74); PLATELET ESTIMATE ADEQUATE; PLATELET MORPHOLOGY COMMENT NORMAL; RBC MORPHOLOGY COMMENT NORMAL
[2017-08-04] MEDS ORDERED: FUROSEMIDE INJ 10 MG/ML 2 ML VIAL IV ONE (11:15)
[2017-08-04] MEDS ORDERED: SODIUM CHLORIDE 0.9% 250ML 250 ML IV ONE (11:15)
[2017-08-04] MEDS ORDERED: CENTRAL TPN FORMULA 1 BAG IV SCH (13:38)
[2017-08-04] MEDS: HYDROCODONE/APAP 7.5MG-325MG 1 EA TAB PO PRN (16:25)
[2017-08-04] MEDS: ATORVASTATIN 40 MG TAB PO SCH (22:40)
[2017-08-05] VITALS (14 sets, daily range): BP systolic 99–124; BP diastolic 48–68
[2017-08-05] MEDS: INSULIN REGULAR, HUMAN 100 UNIT/1 ML 3ML VIAL SQ SCH ×5 (00:15→23:54)
[2017-08-05] MEDS ORDERED: PANTOPRAZOL 40MG/SOD CHL 0.9% 50 ML IV ONE ×3 (01:35→12:46)
[2017-08-05] MEDS: SODIUM CHLORIDE 0.9% 250ML IRRIG IR SCH ×6 (04:00→23:52)
[2017-08-05] MEDS: VANCOMYCIN 250MG/5ML ORAL SOLN PO SCH ×3 (05:15→18:18)
[2017-08-05 05:35] LABS: OCCULT BLOOD STOOL POSITIVE (NEGATIVE)
[2017-08-05 05:55] LABS: BASOPHILS % 0.1 % (0.0-1.0); EOSINOPHILS # (AUTO) 0.1 (0.0-0.4); EOSINOPHILS % 0.8 % (0.0-6.0); HEMATOCRIT 26.3 % (38.2-49.6); LYMPHOCYTES # (AUTO) 0.8 (1.0-3.2); LYMPHOCYTES % 7.7 % (18.0-39.1); MEAN CORPUSCULAR HEMOGLOBIN 29.1 pg (28-32); MEAN CORPUSCULAR HGB CONC 34.2 g/dL (31-35); MEAN CORPUSCULAR VOLUME 85.1 fL (81-99); MONOCYTES # (AUTO) 0.6 (0.2-0.8); MONOCYTES % 6.4 % (4.4-11.3); NEUTROPHILS # (AUTO) 8.3 (2.1-6.9); NEUTROPHILS % 84.4 % (38.7-80.0); PLATELET COUNT 137 x10e3/uL (140-360); RED BLOOD COUNT 3.09 x10e6/uL (4.3-5.7)
--- NOTE | 2017-08-05 06:03 | Diagnostic Imaging Report ---
ABDOMEN-1VIEW (KUB) Clinical history: Small bowel ileus Technique: AP view abdomen Comparison: Previous day Findings: Upper abdomen is excluded from view. NG tube is not seen; it may be obscured by motion, out of the [id number] or removed. Interval decrease in small bowel dilatation. Right lower quadrant ostomy. Overlying skin wallace. Impression: Improved small bowel ileus. Signed by: Dr Latasha Conn MD on 08/05/2017 5:59 AM
[2017-08-05 06:22] LABS: ALBUMIN 1.2 g/dL (3.5-5.0); ALBUMIN/GLOBULIN RATIO 0.5 (0.8-2.0); ANION GAP 10.8 mmol/L (8-16); CALCIUM 8.2 mg/dL (8.4-10.2); CREATININE, SERUM 3.95 mg/dL (0.72-1.25); POTASSIUM 3.8 mmol/L (3.5-5.1)
[2017-08-05 06:45] LABS: PHOSPHORUS 4.4 MG/DL (2.3-4.7)
[2017-08-05] MEDS: PANTOPRAZOLE INJ 40 MG in SODIUM CHLORIDE 0.9% 50ML 50 ML IV SCH ×3 (07:11→15:48)
[2017-08-05] MEDS: MUPIROCIN 2% OINT 22 GM TUBE TOP SCH ×2 (08:13→18:19)
[2017-08-05] MEDS: INSULIN DETEMIR 100 UNIT/ML PEN SQ SCH (08:13)
[2017-08-05] MEDS: LACTOBACILLUS ACIDOPHILUS CAPSULE PO SCH ×2 (08:18→21:50)
[2017-08-05] MEDS: FERROUS SULFATE 325 MG TAB PO SCH (08:18)
[2017-08-05] MEDS: FOLIC ACID 1 MG TAB PO SCH (08:18)
[2017-08-05] MEDS: HYDROCODONE/APAP 7.5MG-325MG 1 EA TAB PO PRN (09:30)
[2017-08-05 11:21] LABS: C DIFFICILE TOXIN A&B AMP PROB NEGATIVE (NEGATIVE)
[2017-08-05] MEDS ORDERED: CENTRAL TPN FORMULA 1 BAG IV SCH (14:38)
[2017-08-05] MEDS: PANTOPRAZOL 40MG/SOD CHL 0.9% 50 ML IV SCH ×2 (18:19→22:05)
[2017-08-05] MEDS: CENTRAL TPN FORMULA 1 BAG IV SCH (20:45)
[2017-08-05] MEDS: ATORVASTATIN 40 MG TAB PO SCH (21:55)
[2017-08-06] VITALS: BP 120/60
[2017-08-06] MEDS: VANCOMYCIN 250MG/5ML ORAL SOLN PO SCH ×4 (00:28→23:52)
[2017-08-06] MEDS ORDERED: PHYTONADIONE 10 MG/ML AMP IV ONE ×3 (01:45→12:00)
[2017-08-06] MEDS ORDERED: PHYTONADIONE 10MG/ML 20 MG in SODIUM CHLORIDE 0.9% 100 ML 100 ML IV ONE (02:15)
[2017-08-06] MEDS ORDERED: PHYTONADIONE 10 MG/ML AMP IV SCH (02:30)
[2017-08-06] MEDS ORDERED: PHYTONADIONE 10MG/ML 2 ML ONE (02:31)
[2017-08-06] MEDS ORDERED: SODIUM CHLORIDE 0.9% 100 ML 100 ML ONE (02:32)
[2017-08-06] MEDS: PANTOPRAZOL 40MG/SOD CHL 0.9% 50 ML IV SCH ×6 (03:25→23:51)
[2017-08-06] MEDS: SODIUM CHLORIDE 0.9% 250ML IRRIG IR SCH ×6 (03:25→23:15)
[2017-08-06 04:00] VITALS: BP 110/58
[2017-08-06 06:06] LABS: BASOPHILS % 0.3 % (0.0-1.0); EOSINOPHILS % 0.5 % (0.0-6.0); HEMATOCRIT 27.3 % (38.2-49.6); HEMOGLOBIN 9.2 g/dL (14.0-18.0); LYMPHOCYTES # (AUTO) 0.8 (1.0-3.2); LYMPHOCYTES % 8.9 % (18.0-39.1); MEAN CORPUSCULAR HEMOGLOBIN 29.1 pg (28-32); MEAN CORPUSCULAR HGB CONC 33.7 g/dL (31-35); MEAN CORPUSCULAR VOLUME 86.4 fL (81-99); MONOCYTES # (AUTO) 0.6 (0.2-0.8); NEUTROPHILS # (AUTO) 7.3 (2.1-6.9); PLATELET COUNT 171 x10e3/uL (140-360); RED BLOOD COUNT 3.16 x10e6/uL (4.3-5.7)
[2017-08-06] MEDS: INSULIN REGULAR, HUMAN 100 UNIT/1 ML 3ML VIAL SQ SCH ×3 (06:24→18:00)
[2017-08-06 06:31] LABS: ALBUMIN 1.2 g/dL (3.5-5.0); ALBUMIN/GLOBULIN RATIO 0.5 (0.8-2.0); ANION GAP 12.9 mmol/L (8-16); CALCIUM 8.1 mg/dL (8.4-10.2); CREATININE, SERUM 3.46 mg/dL (0.72-1.25); POTASSIUM 3.9 mmol/L (3.5-5.1)
--- NOTE | 2017-08-06 06:39 | Diagnostic Imaging Report ---
EXAM: ABDOMEN-1VIEW (KUB) DATE: 08/06/2017 5:00 AM Time stamp on exam: 5:32 AM INDICATION: Ileus COMPARISON: 08/05/2017 and 08/04/2017 FINDINGS: LINES/TUBES: Partially visualized NG tube is noted BOWEL PATTERN: Interval increase in small bowel gaseous distention measuring up to 3.9 cm in diameter SOFT TISSUES: No abnormal calcifications. No mass effect. Midline wallace are stable. LUNG BASES: Not included BONES: Moderate degenerative changes of the thoracolumbar spine. Right lower quadrant ileostomy/colostomy is visualized. IMPRESSION: Postsurgical abdomen with mild interval increase in gaseous distention of the small bowel compatible with ileus Signed by: Dr. Mark Herring M.D. on 08/06/2017 6:35 AM
[2017-08-06 07:48] LABS: PHOSPHORUS 4.1 MG/DL (2.3-4.7)
[2017-08-06] MEDS: MUPIROCIN 2% OINT 22 GM TUBE TOP SCH ×2 (09:00→18:12)
[2017-08-06] MEDS: FERROUS SULFATE 325 MG TAB PO SCH (09:00)
[2017-08-06] MEDS: FOLIC ACID 1 MG TAB PO SCH (09:00)
[2017-08-06] MEDS: LACTOBACILLUS ACIDOPHILUS CAPSULE PO SCH ×2 (09:00→21:58)
[2017-08-06 11:49] VITALS: BP 150/76
[2017-08-06] MEDS ORDERED: PHYTONADIONE 10MG/ML 20 MG in SODIUM CHLORIDE 0.9% 100 ML IV ONE (12:00)
[2017-08-06] MEDS: CARVEDILOL 3.125 MG TAB PO SCH (12:56)
[2017-08-06 15:53] VITALS: BP 113/89
[2017-08-06] MEDS: INSULIN DETEMIR 100 UNIT/ML PEN SQ SCH (18:14)
[2017-08-06 20:33] VITALS: BP 120/59
[2017-08-06] MEDS: CENTRAL TPN FORMULA 1 BAG IV SCH (20:47)
[2017-08-06] MEDS: ATORVASTATIN 40 MG TAB PO SCH (21:58)
[2017-08-07 00:42] VITALS: BP_SYST 124
[2017-08-07] MEDS: SODIUM CHLORIDE 0.9% 250ML IRRIG IR SCH ×2 (03:15→07:15)
[2017-08-07] MEDS: PANTOPRAZOL 40MG/SOD CHL 0.9% 50 ML IV SCH ×7 (03:15→23:00)
[2017-08-07] MEDS: VANCOMYCIN 250MG/5ML ORAL SOLN PO SCH ×4 (05:39→23:00)
[2017-08-07] MEDS: INSULIN REGULAR, HUMAN 100 UNIT/1 ML 3ML VIAL SQ SCH ×4 (05:40→16:46)
[2017-08-07 05:52] VITALS: BP 139/63
[2017-08-07 07:00] LABS: BASOPHILS % 0.1 % (0.0-1.0); EOSINOPHILS % 0.4 % (0.0-6.0); HEMATOCRIT 25.4 % (38.2-49.6); HEMOGLOBIN 8.6 g/dL (14.0-18.0); LYMPHOCYTES # (AUTO) 0.9 (1.0-3.2); LYMPHOCYTES % 12.3 % (18.0-39.1); MEAN CORPUSCULAR HEMOGLOBIN 28.8 pg (28-32); MEAN CORPUSCULAR HGB CONC 33.9 g/dL (31-35); MEAN CORPUSCULAR VOLUME 84.9 fL (81-99); MONOCYTES # (AUTO) 0.6 (0.2-0.8); MONOCYTES % 8.3 % (4.4-11.3); NEUTROPHILS # (AUTO) 5.7 (2.1-6.9); NEUTROPHILS % 78.4 % (38.7-80.0); PLATELET COUNT 203 x10e3/uL (140-360); RED BLOOD COUNT 2.99 x10e6/uL (4.3-5.7)
[2017-08-07 07:12] LABS: ALBUMIN 1.2 g/dL (3.5-5.0); ALBUMIN/GLOBULIN RATIO 0.5 (0.8-2.0); ANION GAP 10.8 mmol/L (8-16); CALCIUM 8.1 mg/dL (8.4-10.2); CREATININE, SERUM 3.05 mg/dL (0.72-1.25); MAGNESIUM 1.9 MG/DL (1.3-2.1); PHOSPHORUS 3.8 MG/DL (2.3-4.7); POTASSIUM 3.8 mmol/L (3.5-5.1)
[2017-08-07 08:00] VITALS: BP 122/62
[2017-08-07] MEDS: LACTOBACILLUS ACIDOPHILUS CAPSULE PO SCH ×2 (08:56→22:22)
[2017-08-07] MEDS: CARVEDILOL 3.125 MG TAB PO SCH (08:56)
[2017-08-07] MEDS: FOLIC ACID 1 MG TAB PO SCH (08:56)
[2017-08-07] MEDS: FERROUS SULFATE 325 MG TAB PO SCH (08:56)
[2017-08-07] MEDS: INSULIN DETEMIR 100 UNIT/ML PEN SQ SCH (08:57)
[2017-08-07] MEDS: MUPIROCIN 2% OINT 22 GM TUBE TOP SCH ×2 (09:00→17:00)
[2017-08-07 12:00] VITALS: BP 125/60
[2017-08-07 16:00] VITALS: BP 125/59
[2017-08-07] MEDS ORDERED: PHYTONADIONE 10MG/ML 20 MG in SODIUM CHLORIDE 0.9% 100 ML IV ONE (18:00)
[2017-08-07 20:38] VITALS: BP 139/60
[2017-08-07] MEDS: CENTRAL TPN FORMULA 1 BAG IV SCH (22:17)
[2017-08-07] MEDS: ATORVASTATIN 40 MG TAB PO SCH (22:22)
[2017-08-08] VITALS: BP 121/65
[2017-08-08] MEDS: INSULIN REGULAR, HUMAN 100 UNIT/1 ML 3ML VIAL SQ SCH ×4 (00:30→18:30)
[2017-08-08] MEDS: PANTOPRAZOL 40MG/SOD CHL 0.9% 50 ML IV SCH ×4 (04:26→19:20)
[2017-08-08] MEDS: VANCOMYCIN 250MG/5ML ORAL SOLN PO SCH ×4 (05:01→23:38)
[2017-08-08 06:34] LABS: BASOPHILS % 0.2 % (0.0-1.0); EOSINOPHILS % 0.2 % (0.0-6.0); HEMOGLOBIN 8.4 g/dL (14.0-18.0); LYMPHOCYTES # (AUTO) 0.9 (1.0-3.2); LYMPHOCYTES % 9.5 % (18.0-39.1); MEAN CORPUSCULAR HEMOGLOBIN 28.9 pg (28-32); MEAN CORPUSCULAR HGB CONC 33.6 g/dL (31-35); MEAN CORPUSCULAR VOLUME 85.9 fL (81-99); MONOCYTES # (AUTO) 0.6 (0.2-0.8); MONOCYTES % 6.4 % (4.4-11.3); NEUTROPHILS # (AUTO) 7.7 (2.1-6.9); NEUTROPHILS % 83.3 % (38.7-80.0); PLATELET COUNT 224 x10e3/uL (140-360); RED BLOOD COUNT 2.91 x10e6/uL (4.3-5.7); RED CELL DISTRIBUTION WIDTH 18.1 % (11.7-14.4)
[2017-08-08 07:12] LABS: ALBUMIN 1.2 g/dL (3.5-5.0); ALBUMIN/GLOBULIN RATIO 0.5 (0.8-2.0); ANION GAP 11.8 mmol/L (8-16); CALCIUM 8.1 mg/dL (8.4-10.2); CREATININE, SERUM 2.75 mg/dL (0.72-1.25); MAGNESIUM 1.9 MG/DL (1.3-2.1); PHOSPHORUS 4.3 MG/DL (2.3-4.7); POTASSIUM 3.8 mmol/L (3.5-5.1)
[2017-08-08 08:02] VITALS: BP 122/63
[2017-08-08] MEDS: LACTOBACILLUS ACIDOPHILUS CAPSULE PO SCH ×2 (08:40→20:04)
[2017-08-08] MEDS: FERROUS SULFATE 325 MG TAB PO SCH (08:40)
[2017-08-08] MEDS: CARVEDILOL 12.5 MG TAB PO SCH (08:40)
[2017-08-08] MEDS: MUPIROCIN 2% OINT 22 GM TUBE TOP SCH (08:41)
[2017-08-08] MEDS: FOLIC ACID 1 MG TAB PO SCH (08:44)
[2017-08-08 12:00] VITALS: BP 116/61
[2017-08-08] MEDS ORDERED: CENTRAL TPN FORMULA 1 BAG IV SCH ×2 (12:13→20:00)
[2017-08-08] MEDS: HYDROCODONE/APAP 5MG-325MG TAB PO PRN ×2 (13:18→20:05)
[2017-08-08 16:02] VITALS: BP 124/60
[2017-08-08 19:54] VITALS: BP 124/67
[2017-08-08 20:00] VITALS: BP 124/61
[2017-08-08] MEDS: ATORVASTATIN 40 MG TAB PO SCH (20:04)
[2017-08-09] VITALS (8 sets, daily range): BP systolic 95–135; BP diastolic 52–65
[2017-08-09] MEDS: PANTOPRAZOL 40MG/SOD CHL 0.9% 50 ML IV SCH ×5 (00:07→20:15)
[2017-08-09] MEDS: VANCOMYCIN 250MG/5ML ORAL SOLN PO SCH (05:21)
[2017-08-09] MEDS: INSULIN REGULAR, HUMAN 100 UNIT/1 ML 3ML VIAL SQ SCH ×4 (05:43→17:53)
[2017-08-09 06:45] LABS: BASOPHILS % 0.1 % (0.0-1.0); EOSINOPHILS % 0.4 % (0.0-6.0); HEMATOCRIT 26.3 % (38.2-49.6); HEMOGLOBIN 8.5 g/dL (14.0-18.0); LYMPHOCYTES # (AUTO) 0.8 (1.0-3.2); LYMPHOCYTES % 9.9 % (18.0-39.1); MEAN CORPUSCULAR HEMOGLOBIN 28.6 pg (28-32); MEAN CORPUSCULAR HGB CONC 32.3 g/dL (31-35); MEAN CORPUSCULAR VOLUME 88.6 fL (81-99); MONOCYTES # (AUTO) 0.5 (0.2-0.8); NEUTROPHILS # (AUTO) 6.4 (2.1-6.9); NEUTROPHILS % 83.3 % (38.7-80.0); PLATELET COUNT 244 x10e3/uL (140-360); RED BLOOD COUNT 2.97 x10e6/uL (4.3-5.7); RED CELL DISTRIBUTION WIDTH 18.1 % (11.7-14.4)
[2017-08-09 07:09] LABS: % IRON SATURATION 4 % (15-50); IRON < 5 ug/dL (65-175); TOTAL IRON BINDING CAPACITY 130 ug/dL (261-478); TRANSFERRIN 93 mg/dL (174-364)
[2017-08-09 09:06] LABS: FOLATE 14.8 ng/mL (7.0-15.4)
[2017-08-09] MEDS: FOLIC ACID 1 MG TAB PO SCH (09:18)
[2017-08-09] MEDS: CARVEDILOL 12.5 MG TAB PO SCH (09:18)
[2017-08-09] MEDS: LACTOBACILLUS ACIDOPHILUS CAPSULE PO SCH ×2 (09:18→20:47)
[2017-08-09] MEDS: FERROUS SULFATE 325 MG TAB PO SCH (09:18)
[2017-08-09] MEDS: HYDROCODONE/APAP 5MG-325MG TAB PO PRN ×2 (14:02→18:31)
--- NOTE | 2017-08-09 16:11 | Consultation ---
DATE OF CONSULTATION: August 09, 2017 REFERRING PHYSICIAN: Dr. Cristiana Grant HISTORY OF PRESENT ILLNESS: Patient is a 76-year-old male who was admitted to the hospital with severe Clostridium difficile colitis. He has a subtotal colectomy with ileostomy. He has renal failure and is on dialysis. He will need access for long-term hemodialysis. PAST MEDICAL HISTORY: Significant for hypertension, diabetes, coronary artery disease. Patient had previous cholecystectomy and coronary angioplasty besides the surgeries stated above. MEDICATIONS: Listed in the chart. ALLERGIES: LISINOPRIL AND SIMVASTATIN. FAMILY HISTORY: Noncontributory. SOCIAL HISTORY: Patient does not smoke cigarettes or drink alcohol. REVIEW OF SYSTEMS: Cannot be obtained. PHYSICAL EXAMINATION: The patient is alert but does not answer questions. Significant findings in the left arm. There is a palpable radial pulse which is diminished. There is a good brachial pulse. Peripheral veins are poor but maybe an adequate vein in the antecubital area for fistula. ASSESSMENT: A 76-year-old male with renal failure who needs access for long-term hemodialysis. PLAN: A left arm arteriovenous fistula to be done next week. Procedure was explained to the patient. Thank you for asking me to see Mr. Dill. Job#: [id number] ESTUARDO
[2017-08-09] MEDS: ATORVASTATIN 40 MG TAB PO SCH (20:46)
[2017-08-10] VITALS (9 sets, daily range): BP systolic 100–138; BP diastolic 50–83
[2017-08-10] MEDS: PANTOPRAZOL 40MG/SOD CHL 0.9% 50 ML IV SCH ×5 (01:15→21:42)
[2017-08-10] MEDS: INSULIN REGULAR, HUMAN 100 UNIT/1 ML 3ML VIAL SQ SCH ×4 (06:00→18:29)
[2017-08-10 06:56] LABS: BASOPHILS % 0.1 % (0.0-1.0); EOSINOPHILS % 0.4 % (0.0-6.0); HEMOGLOBIN 8.1 g/dL (14.0-18.0); LYMPHOCYTES % 14.6 % (18.0-39.1); MEAN CORPUSCULAR HEMOGLOBIN 28.6 pg (28-32); MEAN CORPUSCULAR HGB CONC 32.4 g/dL (31-35); MEAN CORPUSCULAR VOLUME 88.3 fL (81-99); MONOCYTES # (AUTO) 0.5 (0.2-0.8); MONOCYTES % 7.5 % (4.4-11.3); NEUTROPHILS # (AUTO) 5.4 (2.1-6.9); NEUTROPHILS % 76.8 % (38.7-80.0); PLATELET COUNT 232 x10e3/uL (140-360); RED BLOOD COUNT 2.83 x10e6/uL (4.3-5.7); RED CELL DISTRIBUTION WIDTH 17.5 % (11.7-14.4)
[2017-08-10] MEDS ORDERED: IRON SUCROSE IV SCH (08:00)
[2017-08-10] MEDS ORDERED: SODIUM CHLORIDE 0.9% IV SCH (08:00)
[2017-08-10] MEDS: LACTOBACILLUS ACIDOPHILUS CAPSULE PO SCH ×2 (08:16→20:30)
[2017-08-10] MEDS: FOLIC ACID 1 MG TAB PO SCH (08:16)
[2017-08-10] MEDS: CARVEDILOL 12.5 MG TAB PO SCH (08:16)
[2017-08-10] MEDS: FERROUS SULFATE 325 MG TAB PO SCH (08:16)
[2017-08-10] MEDS: SODIUM CHLORIDE 0.9% IV SCH (11:39)
[2017-08-10] MEDS: IRON SUCROSE IV SCH (11:39)
[2017-08-10] MEDS: DICLOFENAC EPOLAMINE 1.3% PATCH TP SCH (18:17)
[2017-08-10] MEDS: ATORVASTATIN 40 MG TAB PO SCH (20:30)
[2017-08-11] VITALS (7 sets, daily range): BP systolic 100–125; BP diastolic 50–59
[2017-08-11] MEDS: PANTOPRAZOL 40MG/SOD CHL 0.9% 50 ML IV SCH ×5 (02:15→23:55)
[2017-08-11 03:53] LABS: CLARITY,URINE SL CLOUDY (CLEAR); COLOR,URINE YELLOW (YELLOW); KETONES,URINE NEGATIVE (NEGATIVE); LEUKOCYTE ESTERASE ,URINE 1+ (NEGATIVE); NITRITE,URINE POSITIVE (NEGATIVE); PROTEIN,URINE DIPSTICK 1+ (NEGATIVE)
[2017-08-11 03:54] LABS: BILIRUBIN,URINE NEGATIVE (NEGATIVE); URINE UROBILINOGEN 0.2 mg/dL (0.2 - 1)
[2017-08-11 03:57] LABS: BACTERIA,URINE MANY /HPF; EPITHELIAL CELLS,URINE FEW /LPF; RBC,URINE 0-5 /HPF (0-5); WBC,URINE (MAN) 21-50 /HPF (0-5)
[2017-08-11] MEDS: INSULIN REGULAR, HUMAN 100 UNIT/1 ML 3ML VIAL SQ SCH ×4 (05:18→18:32)
[2017-08-11 06:26] LABS: BASOPHILS % 0.1 % (0.0-1.0); EOSINOPHILS % 0.4 % (0.0-6.0); HEMATOCRIT 26.6 % (38.2-49.6); HEMOGLOBIN 8.4 g/dL (14.0-18.0); LYMPHOCYTES # (AUTO) 0.8 (1.0-3.2); LYMPHOCYTES % 10.4 % (18.0-39.1); MEAN CORPUSCULAR HEMOGLOBIN 28.3 pg (28-32); MEAN CORPUSCULAR HGB CONC 31.6 g/dL (31-35); MEAN CORPUSCULAR VOLUME 89.6 fL (81-99); MONOCYTES # (AUTO) 0.5 (0.2-0.8); MONOCYTES % 7.5 % (4.4-11.3); NEUTROPHILS # (AUTO) 5.8 (2.1-6.9); PLATELET COUNT 263 x10e3/uL (140-360); RED BLOOD COUNT 2.97 x10e6/uL (4.3-5.7); RED CELL DISTRIBUTION WIDTH 18.1 % (11.7-14.4)
[2017-08-11 07:04] LABS: ANION GAP 13.4 mmol/L (8-16); CALCIUM 8.6 mg/dL (8.4-10.2); CREATININE, SERUM 2.59 mg/dL (0.72-1.25); POTASSIUM 4.4 mmol/L (3.5-5.1)
[2017-08-11] MEDS: CARVEDILOL 12.5 MG TAB PO SCH (09:05)
[2017-08-11] MEDS: DICLOFENAC EPOLAMINE 1.3% PATCH TP SCH ×2 (09:06→16:48)
[2017-08-11] MEDS: FOLIC ACID 1 MG TAB PO SCH (09:06)
[2017-08-11] MEDS: LACTOBACILLUS ACIDOPHILUS CAPSULE PO SCH ×2 (09:06→20:27)
[2017-08-11] MEDS: FERROUS SULFATE 325 MG TAB PO SCH (09:06)
[2017-08-11] MEDS: HYDROCODONE/APAP 5MG-325MG TAB PO PRN (10:48)
[2017-08-11] MEDS: IRON SUCROSE IV SCH (10:48)
[2017-08-11] MEDS: SODIUM CHLORIDE 0.9% IV SCH (10:48)
[2017-08-11] MEDS: ATORVASTATIN 40 MG TAB PO SCH (20:27)
[2017-08-12 01:07] VITALS: BP 99/55
[2017-08-12] MEDS: PANTOPRAZOL 40MG/SOD CHL 0.9% 50 ML IV SCH ×5 (05:27→23:45)
[2017-08-12 05:45] VITALS: BP 101/56
[2017-08-12 06:48] LABS: BASOPHILS % 0.2 % (0.0-1.0); EOSINOPHILS % 0.5 % (0.0-6.0); HEMOGLOBIN 7.1 g/dL (14.0-18.0); LYMPHOCYTES # (AUTO) 0.9 (1.0-3.2); LYMPHOCYTES % 13.7 % (18.0-39.1); MEAN CORPUSCULAR HEMOGLOBIN 28.5 pg (28-32); MEAN CORPUSCULAR HGB CONC 32.6 g/dL (31-35); MEAN CORPUSCULAR VOLUME 87.6 fL (81-99); MONOCYTES # (AUTO) 0.6 (0.2-0.8); MONOCYTES % 8.7 % (4.4-11.3); NEUTROPHILS # (AUTO) 4.8 (2.1-6.9); NEUTROPHILS % 76.6 % (38.7-80.0); PLATELET COUNT 255 x10e3/uL (140-360); RED BLOOD COUNT 2.49 x10e6/uL (4.3-5.7)
[2017-08-12 06:52] LABS: HEMATOCRIT 21.8 % (38.2-49.6)
[2017-08-12] MEDS: INSULIN REGULAR, HUMAN 100 UNIT/1 ML 3ML VIAL SQ SCH ×4 (07:30→21:00)
[2017-08-12 08:00] VITALS: BP 144/79
[2017-08-12] MEDS: FOLIC ACID 1 MG TAB PO SCH (09:00)
[2017-08-12] MEDS: DICLOFENAC EPOLAMINE 1.3% PATCH TP SCH ×2 (09:00→17:00)
[2017-08-12] MEDS: LACTOBACILLUS ACIDOPHILUS CAPSULE PO SCH ×2 (09:00→21:00)
[2017-08-12] MEDS: FERROUS SULFATE 325 MG TAB PO SCH (09:00)
[2017-08-12] MEDS: CARVEDILOL 12.5 MG TAB PO SCH (09:00)
[2017-08-12] MEDS ORDERED: FUROSEMIDE INJ 10 MG/ML 2 ML VIAL IV NR (09:30)
[2017-08-12] MEDS ORDERED: SODIUM CHLORIDE 0.9% 250ML 250 ML IV NR (09:30)
[2017-08-12] MEDS: HYDROCODONE/APAP 5MG-325MG TAB PO PRN (09:42)
[2017-08-12] MEDS ORDERED: METHYLPREDNISOLONE SOD SUCC 40 MG/ML VIAL IV NR (10:00)
[2017-08-12] MEDS: IRON SUCROSE IV SCH (10:30)
[2017-08-12] MEDS: SODIUM CHLORIDE 0.9% IV SCH (10:30)
[2017-08-12 12:00] VITALS: BP 83/52
--- NOTE | 2017-08-12 14:52 | Diagnostic Imaging Report ---
PROCEDURE: Frontal and lateral views of the chest. COMPARISON: 08/03/17 INDICATIONS: CONGESTIVE HEART FAILURE FINDINGS: Lines/tubes: Right internal jugular central venous catheter has its tip at the cavoatrial junction. Lungs: Limited by low lung volumes. Central peribronchovascular thickening/cuffing. Left basilar hazy opacification. Pleura: There is no pleural effusion or pneumothorax. Heart and mediastinum: The heart and the mediastinum are normal. Bones: No acute bony abnormality. IMPRESSION: Central peribronchovascular thickening/cuffing. Left basilar hazy opacification, likely a small effusion. Dictated by: Bolivar Garcia M.D. on 08/12/2017 at 14:54 Electronically approved by: Bolivar Garcia M.D. on 08/12/2017 at 14:54
[2017-08-12 16:00] VITALS: BP 92/54
[2017-08-12] MEDS: SODIUM BICARBONATE 8.4% SYRING 150 ML in DEXTROSE 5% 1,000 ML IV SCH (20:00)
[2017-08-12] MEDS: ATORVASTATIN 40 MG TAB PO SCH (21:00)
[2017-08-13] MEDS: SODIUM BICARBONATE 8.4% SYRING 150 ML in DEXTROSE 5% 1,000 ML IV SCH ×2 (04:26→20:33)
[2017-08-13] MEDS: PANTOPRAZOL 40MG/SOD CHL 0.9% 50 ML IV SCH ×4 (04:42→19:30)
[2017-08-13 06:10] LABS: BASOPHILS % 0.2 % (0.0-1.0); EOSINOPHILS % 0.6 % (0.0-6.0); HEMATOCRIT 27.5 % (38.2-49.6); HEMOGLOBIN 9.1 g/dL (14.0-18.0); LYMPHOCYTES # (AUTO) 1.1 (1.0-3.2); LYMPHOCYTES % 17.6 % (18.0-39.1); MEAN CORPUSCULAR HEMOGLOBIN 28.4 pg (28-32); MEAN CORPUSCULAR HGB CONC 33.1 g/dL (31-35); MEAN CORPUSCULAR VOLUME 85.9 fL (81-99); MONOCYTES # (AUTO) 0.6 (0.2-0.8); MONOCYTES % 9.3 % (4.4-11.3); NEUTROPHILS # (AUTO) 4.6 (2.1-6.9); NEUTROPHILS % 71.5 % (38.7-80.0); PLATELET COUNT 246 x10e3/uL (140-360); RED CELL DISTRIBUTION WIDTH 17.4 % (11.7-14.4)
[2017-08-13] MEDS ORDERED: LIDOCAINE HCL 1% LOCAL INJ 20 ML VIAL ONE (06:31)
[2017-08-13] MEDS ORDERED: HEPARIN SOD (PORCINE) 5,000 UNIT/ML VIAL ONE ×2 (06:31→07:16)
[2017-08-13] MEDS ORDERED: SODIUM CHLORIDE 0.9% 100 ML 0 ML ONE (06:32)
[2017-08-13 06:33] LABS: MAGNESIUM 2.1 MG/DL (1.3-2.1); PHOSPHORUS 5.4 MG/DL (2.3-4.7)
[2017-08-13 06:39] LABS: ALBUMIN 1.1 g/dL (3.5-5.0); ALBUMIN/GLOBULIN RATIO 0.4 (0.8-2.0); ANION GAP 14.3 mmol/L (8-16); CALCIUM 8.2 mg/dL (8.4-10.2); CREATININE, SERUM 2.71 mg/dL (0.72-1.25); POTASSIUM 4.3 mmol/L (3.5-5.1)
[2017-08-13] MEDS ORDERED: SODIUM CHLORIDE 0.9% 500ML 500 ML ONE (06:52)
[2017-08-13 08:30] VITALS: BP 111/59
[2017-08-13] MEDS: INSULIN REGULAR, HUMAN 100 UNIT/1 ML 3ML VIAL SQ SCH ×4 (09:00→22:01)
[2017-08-13] MEDS: DICLOFENAC EPOLAMINE 1.3% PATCH TP SCH ×2 (09:00→17:33)
[2017-08-13] MEDS: FERROUS SULFATE 325 MG TAB PO SCH (09:12)
[2017-08-13] MEDS: FOLIC ACID 1 MG TAB PO SCH (09:12)
[2017-08-13] MEDS: LACTOBACILLUS ACIDOPHILUS CAPSULE PO SCH ×2 (09:12→21:55)
[2017-08-13] MEDS ORDERED: ALBUMIN 25% 25GM 0.25 GM/ML BTL IV ONE ×2 (10:00→10:15)
[2017-08-13] MEDS: PERIPHERAL TPN FORMULA 1 BAG IV SCH (10:00)
[2017-08-13 12:00] VITALS: BP 106/53
--- NOTE | 2017-08-13 12:44 | Operative Report ---
DATE OF PROCEDURE: August 13, 2017 PREOPERATIVE DIAGNOSIS: End-stage renal disease. POSTOPERATIVE DIAGNOSIS: End-stage renal disease. PROCEDURE: Creation of left arm primary arteriovenous fistula. FILTER PRESS TENDER HEAD: None. ANESTHESIA: General. INDICATIONS AND FINDINGS: Patient is a 77-year-old male who was admitted to the hospital with sepsis secondary to severe colitis, who has now developed renal failure, and it is declared end-stage. At surgery, there was adequate cephalic vein in the forearm and a good radial artery with a good pulse. At the end of the procedure, there was a palpable thrill over the fistula, a palpable pulse in the radial artery distal to the fistula. TECHNIQUE: After adequate general anesthesia with patient in supine position, the left arm was prepped and draped in a sterile fashion with Darek solution. A transverse incision was made over the area of the cephalic vein and radial artery, and carried down through the subcutaneous tissue. Cephalic vein was dissected free proximally and distally, side branches ligated with Hemoclips. The vein was dissected free as distally as possible. More medially, the incision was carried deeper and the radial artery was dissected free, controlled with vessel loops. There was a good pulse in radial artery, which was a soft artery. The cephalic vein was then divided as distally as possible, distal portion ligated with Hemoclips. A #3 Elvia catheter was passed through the vein and passed easily without resistance. The vein was then fashioned appropriately for anastomosis. Patient was given 5000 units of intravenous heparin. The radial artery was then clamped proximally and distally. Arteriotomy was made. Anastomosis was made between the end of the vein and side of the artery with running suture of 7-0 Prolene. Once flow was allowed through the fistula, there was a palpable thrill over the fistula, a palpable pulse in the radial artery distal to the fistula. Hemostasis at suture line was seen to be adequate. The wound was then closed in subcutaneous tissue, closed with running suture of 3-0 Vicryl. Skin was closed with wallace. Sterile dressing was applied. Patient tolerated the procedure well. Estimated blood loss was 10 mL. There were no complications. All counts were correct. Patient was taken to the recovery room in satisfactory condition. Job#: [id number] cc:SHANA MILES MD
[2017-08-13 16:00] VITALS: BP_SYST 127; BP_SYST 129; BP_DIAS 58; BP_DIAS 61
[2017-08-13] MEDS: CARVEDILOL 12.5 MG TAB PO SCH (17:32)
[2017-08-13] MEDS ORDERED: MIDAZOLAM HCL 2 MG/2 ML VIAL ONE (18:39)
[2017-08-13] MEDS ORDERED: FENTANYL CITRATE/PF 100MCG/2 ML INJ ONE (18:39)
[2017-08-13] MEDS ORDERED: LIDOCAINE HCL 2% LOCAL INJ 5 ML SDV VIAL INJ ONE (19:10)
[2017-08-13] MEDS ORDERED: PROPOFOL IV EMULSION 10 MG/ML 20 ML VIAL ONE (19:10)
[2017-08-13 20:16] VITALS: BP 116/87
[2017-08-13] MEDS: CENTRAL TPN FORMULA 1 BAG IV SCH (20:32)
[2017-08-13] MEDS: ATORVASTATIN 40 MG TAB PO SCH (21:55)
[2017-08-14] VITALS (8 sets, daily range): BP systolic 105–134; BP diastolic 56–66
[2017-08-14] MEDS: PANTOPRAZOL 40MG/SOD CHL 0.9% 50 ML IV SCH ×5 (02:51→19:24)
[2017-08-14] MEDS: HYDROCODONE/APAP 5MG-325MG TAB PO PRN ×3 (05:47→18:05)
[2017-08-14 07:00] LABS: ALBUMIN 1.4 g/dL (3.5-5.0); ALBUMIN/GLOBULIN RATIO 0.5 (0.8-2.0); ANION GAP 10.9 mmol/L (8-16); CREATININE, SERUM 2.34 mg/dL (0.72-1.25); MAGNESIUM 1.9 MG/DL (1.3-2.1); PHOSPHORUS 3.8 MG/DL (2.3-4.7); POTASSIUM 3.9 mmol/L (3.5-5.1)
[2017-08-14] MEDS: INSULIN REGULAR, HUMAN 100 UNIT/1 ML 3ML VIAL SQ SCH ×4 (08:02→21:00)
[2017-08-14] MEDS: DICLOFENAC EPOLAMINE 1.3% PATCH TP SCH ×2 (09:09→17:00)
[2017-08-14] MEDS: FERROUS SULFATE 325 MG TAB PO SCH (09:09)
[2017-08-14] MEDS: FOLIC ACID 1 MG TAB PO SCH (09:09)
[2017-08-14] MEDS: CARVEDILOL 12.5 MG TAB PO SCH (09:09)
[2017-08-14] MEDS: LACTOBACILLUS ACIDOPHILUS CAPSULE PO SCH ×2 (09:09→21:22)
[2017-08-14] MEDS: PERIPHERAL TPN FORMULA 1 BAG IV SCH (10:00)
--- NOTE | 2017-08-14 12:54 | Consultation ---
DATE OF CONSULTATION: July 30, 2017 HEMATOLOGY CONSULT HISTORY OF PRESENT ILLNESS: Mr. Dill is a 76-year-old white male who has been referred to me for evaluation of thrombocytopenia. No history could be obtained from the patient as the patient is not alert at the present time. History of colitis for which he had surgery. The patient eventually was found to have clostridia colitis. Dr. Vishal Alvarez had done the surgery. SOCIAL HISTORY: Could not be obtained. FAMILY HISTORY: Could not be obtained. ALLERGIES REPORTED: NONE. MEDICATIONS: At this time 1. Metronidazole. 2. Protonix. 3. Sodium chloride. 4. TPN. 5. Ferrous sulfate. 6. Folic acid. 7. Lactobacillus. 8. Vancomycin. 9. Dextrose. 10. Atorvastatin. 11. Heparin. 12. Lasix. 13. Mannitol. 14. Albumin. 15. Insulin. REVIEW OF SYSTEMS: HEENT: Normal. CARDIAC: History of hypertension with hyperlipidemia. RESPIRATORY: Briefly intubated. GI: Colitis with diverting colostomy, recent ileostomy on July 28, 2017. : Chronic renal failure. MUSCULOSKELETAL: Normal. SKIN AND BREASTS: Normal. NEUROENDOCRINE: At the present time on insulin. PHYSICAL EXAMINATION: GENERAL: A moderately built male, very anemic. No palpable adenopathy. HEART: Within normal limits. LUNGS: Coarse crepitations. ABDOMEN: Obese. Ileostomy is seen. RECTAL: Exam could not be done. CENTRAL NERVOUS SYSTEM: Could not be done. LABORATORY DATA: Shows a sodium of 138, potassium 3.3, chloride 75, CO2 24, BUN 30, creatinine 2.9. Hemoglobin of 8.8, hematocrit of around 25.5, white count 7700, platelets 45. INR 1.4. Bilirubin 0.6, SGOT 61, SGPT 22, alkaline phosphatase 291. IMPRESSION: 1. Clostridia colitis. 2. Hypotensive episode. 3. Anemia of chronic disease. 4. Thrombocytopenia. 5. Hypokalemia. 6. Chronic renal failure. 7. Hypotension because of sepsis. 8. Diabetes mellitus. 9. Coronary artery disease. 10. Status post percutaneous transluminal coronary angioplasty. 11. On vasopressors. 12. Status post ileostomy July 28, 2017. 13. Leukemoid reaction of 23,900 on July 28, 2017. 14. Hypoproteinemia (5.4). 15. Hypoalbuminemia (1.2). 16. Hypoglobulinemia (2.2). 17. Bilateral pleural effusions. 18. Ascites. 19. Pericardial effusion. PLAN, COMMENTS AND SUGGESTIONS: Continue support. Platelets to keep above 50,000 because of the surgery. I will confine myself to hematology only. Job#: [id number] EV cc:RODOLFO [place] MD
[2017-08-14] MEDS: SODIUM BICARBONATE 8.4% SYRING 150 ML in DEXTROSE 5% 1,000 ML IV SCH (14:04)
[2017-08-14] MEDS: CENTRAL TPN FORMULA 1 BAG IV SCH (19:38)
[2017-08-14] MEDS: ATORVASTATIN 40 MG TAB PO SCH (21:22)
[2017-08-15] VITALS (8 sets, daily range): BP systolic 114–161; BP diastolic 58–87
[2017-08-15] MEDS: PANTOPRAZOL 40MG/SOD CHL 0.9% 50 ML IV SCH ×5 (00:32→23:00)
[2017-08-15] MEDS: SODIUM BICARBONATE 8.4% SYRING 150 ML in DEXTROSE 5% 1,000 ML IV SCH ×2 (05:09→21:25)
[2017-08-15 07:42] LABS: CALCIUM 8.1 mg/dL (8.4-10.2); CREATININE, SERUM 1.83 mg/dL (0.72-1.25); MAGNESIUM 2.1 MG/DL (1.3-2.1)
[2017-08-15] MEDS: FERROUS SULFATE 325 MG TAB PO SCH (08:24)
[2017-08-15] MEDS: INSULIN REGULAR, HUMAN 100 UNIT/1 ML 3ML VIAL SQ SCH ×4 (08:24→21:25)
[2017-08-15] MEDS: FOLIC ACID 1 MG TAB PO SCH (08:24)
[2017-08-15] MEDS: DICLOFENAC EPOLAMINE 1.3% PATCH TP SCH ×2 (08:24→17:15)
[2017-08-15] MEDS: CARVEDILOL 12.5 MG TAB PO SCH (08:24)
[2017-08-15] MEDS: LACTOBACILLUS ACIDOPHILUS CAPSULE PO SCH ×2 (08:24→21:24)
[2017-08-15] MEDS: CENTRAL TPN FORMULA 1 BAG IV SCH (19:34)
[2017-08-15] MEDS: ATORVASTATIN 40 MG TAB PO SCH (21:24)
[2017-08-15] MEDS: MIRTAZAPINE 15 MG TAB PO SCH (21:24)
[2017-08-15] MEDS: HYDROCODONE/APAP 5MG-325MG TAB PO PRN (21:25)
[2017-08-15] MEDS: INSULIN DETEMIR 100 UNIT/ML PEN SQ SCH (21:25)
[2017-08-16 00:31] VITALS: BP 124/53
[2017-08-16] MEDS: PANTOPRAZOL 40MG/SOD CHL 0.9% 50 ML IV SCH ×5 (04:54→21:35)
[2017-08-16 05:49] VITALS: BP 119/64
[2017-08-16] MEDS: HYDROCODONE/APAP 5MG-325MG TAB PO PRN ×3 (06:32→21:44)
[2017-08-16 06:35] LABS: BASOPHILS % 0.2 % (0.0-1.0); EOSINOPHILS # (AUTO) 0.2 (0.0-0.4); EOSINOPHILS % 3.5 % (0.0-6.0); HEMATOCRIT 26.3 % (38.2-49.6); HEMOGLOBIN 8.7 g/dL (14.0-18.0); LYMPHOCYTES # (AUTO) 1.3 (1.0-3.2); LYMPHOCYTES % 23.9 % (18.0-39.1); MEAN CORPUSCULAR HEMOGLOBIN 28.8 pg (28-32); MEAN CORPUSCULAR HGB CONC 33.1 g/dL (31-35); MEAN CORPUSCULAR VOLUME 87.1 fL (81-99); MONOCYTES # (AUTO) 0.7 (0.2-0.8); MONOCYTES % 11.8 % (4.4-11.3); NEUTROPHILS # (AUTO) 3.3 (2.1-6.9); NEUTROPHILS % 59.9 % (38.7-80.0); PLATELET COUNT 286 x10e3/uL (140-360); RED BLOOD COUNT 3.02 x10e6/uL (4.3-5.7); RED CELL DISTRIBUTION WIDTH 17.3 % (11.7-14.4)
[2017-08-16 07:01] LABS: ALBUMIN 1.2 g/dL (3.5-5.0); ALBUMIN/GLOBULIN RATIO 0.4 (0.8-2.0); ANION GAP 8.8 mmol/L (8-16); CALCIUM 7.9 mg/dL (8.4-10.2); CREATININE, SERUM 1.56 mg/dL (0.72-1.25); POTASSIUM 3.8 mmol/L (3.5-5.1)
[2017-08-16 07:43] VITALS: BP 126/59
[2017-08-16 08:00] VITALS: BP 126/59
[2017-08-16] MEDS: CARVEDILOL 12.5 MG TAB PO SCH (10:11)
[2017-08-16] MEDS: LACTOBACILLUS ACIDOPHILUS CAPSULE PO SCH ×2 (10:11→21:35)
[2017-08-16] MEDS: FOLIC ACID 1 MG TAB PO SCH (10:11)
[2017-08-16] MEDS: INSULIN REGULAR, HUMAN 100 UNIT/1 ML 3ML VIAL SQ SCH ×4 (10:11→21:43)
[2017-08-16] MEDS: FERROUS SULFATE 325 MG TAB PO SCH (10:11)
[2017-08-16] MEDS ORDERED: PHYTONADIONE 10 MG/ML AMP SQ ONE (10:15)
[2017-08-16] MEDS: DICLOFENAC EPOLAMINE 1.3% PATCH TP SCH ×2 (11:05→17:15)
[2017-08-16] MEDS: SODIUM BICARBONATE 8.4% SYRING 150 ML in DEXTROSE 5% 1,000 ML IV SCH (14:36)
[2017-08-16 15:55] VITALS: BP 161/74
[2017-08-16] MEDS ORDERED: SODIUM BICARBONATE 8.4% SYRING 50 ML ONE (17:21)
[2017-08-16 20:30] VITALS: BP 132/60
[2017-08-16] MEDS: MIRTAZAPINE 15 MG TAB PO SCH (21:35)
[2017-08-16] MEDS: CENTRAL TPN FORMULA 1 BAG IV SCH (21:42)
[2017-08-16] MEDS: INSULIN DETEMIR 100 UNIT/ML PEN SQ SCH (21:43)
[2017-08-17] VITALS (8 sets, daily range): BP systolic 99–158; BP diastolic 57–75
[2017-08-17] MEDS: PANTOPRAZOL 40MG/SOD CHL 0.9% 50 ML IV SCH ×4 (02:13→18:16)
[2017-08-17] MEDS: CARVEDILOL 12.5 MG TAB PO SCH (09:54)
[2017-08-17] MEDS: INSULIN REGULAR, HUMAN 100 UNIT/1 ML 3ML VIAL SQ SCH ×4 (09:54→20:46)
[2017-08-17] MEDS: FERROUS SULFATE 325 MG TAB PO SCH (09:55)
[2017-08-17] MEDS: DICLOFENAC EPOLAMINE 1.3% PATCH TP SCH ×2 (09:55→16:52)
[2017-08-17] MEDS: FOLIC ACID 1 MG TAB PO SCH (09:55)
[2017-08-17] MEDS: LACTOBACILLUS ACIDOPHILUS CAPSULE PO SCH ×2 (09:55→20:41)
[2017-08-17] MEDS: SODIUM BICARBONATE 8.4% SYRING 150 ML in DEXTROSE 5% 1,000 ML IV SCH (12:43)
--- NOTE | 2017-08-17 15:20 | Consultation ---
DATE OF CONSULTATION: August 16, 2017 UROLOGY CONSULTATION REASON FOR CONSULTATION: Urinary retention. HISTORY OF PRESENT ILLNESS: Guanakito Dill is a 76-year-old man who has a previous history of having had urolithiasis. The patient underwent a procedure which he describes as breaking up of a stone in the past. The patient has not recently followed up with his urologist. The patient was in the hospital, has been ill, has had exploratory laparotomy. He has had a colostomy. The patient had voiding difficulty and was unable to void for a period of 8 hours. Felix catheter was placed and 400 mL obtained of urinary retention. Urological consultation was subsequently sought. The patient denies urinary incontinence, denies previous problems urinating prior to his becoming ill. PAST MEDICAL AND SURGICAL HISTORY: 1. Chronic kidney disease. 2. History of wounds. 3. Diabetes mellitus. 4. Hypertension. 5. Coronary artery disease. 6. Status post coronary stenting. 7. Hyperlipidemia. 8. Status post cholecystectomy. 9. History of Clostridium difficile colitis. 10. Hypothyroidism. 11. Peripheral vascular disease. 12. Gastroesophageal reflux. ALLERGIES: PLEASE REFER TO THE MAR. CURRENT MEDICATIONS: Please refer to the MAR. SOCIAL HISTORY: The patient quit smoking in 1964. Denies smoking, ethanol or drug use. The patient used to work in a lubrication of motors and pumps. FAMILY HISTORY: Noncontributory to the active urological problems. Significant for diabetes mellitus in both parents. REVIEW OF SYSTEMS: Consistent with history of present illness and past medical history, otherwise negative for all other systems. PHYSICAL EXAMINATION: GENERAL: An elderly man, having an appearance of chronic illness, in no apparent distress. VITAL SIGNS: Afebrile. Vital signs stable. ABDOMEN: Soft, nondistended. He has a midline incision that is intact. He has a colostomy in place that appears to be pink and functional. GENITOURINARY: Testes descended bilaterally. Testes and epididymides are bilaterally sensitive and the patient reports they have been sensitive for long time. Both testes appear atrophic. The patient has a normal male phallus with some mild edema of the penile skin. For the full extensive physical examination systems, please refer to chart and consultation notes by the other physicians as well as to the history and physical. LABORATORY STUDIES: The patient has a urine culture which revealed E. coil from August 11. It was pansensitive except for Bactrim. The patient's white blood cell count is 5490 which has decreased from a high of above 20,000 early in this hospitalization. His hemoglobin is low at 8.7. His platelets are low at 86,000. The patient's creatinine is elevated at 1.56 which is his baseline. His calcium is low at 7.9. The urinalysis from August 11 is significant for nitrite positive urine with 21-50 WBCs and many bacteria. CT scan of the abdomen and pelvis performed on July 28 without contrast revealed no evidence of nephrolithiasis nor hydroureteronephrosis. There was a pancolitis noted and reproductive organs were listed as normal. ASSESSMENT: 1. Urinary retention, 400 mL. 2. Atrophic testes. 3. History of urolithiasis. 4. Leukocytosis that has improved. 5. Anemia that is stable. 6. Chronic renal insufficiency that is back to baseline values. 7. Urinary tract infection. 8. Hypocalcemia. PLAN: 1. I will order a urine culture and sensitivity to follow up on the patient's previous urinary tract infection. This will be a catheterized specimen. 2. I recommend leaving the Felix catheter in place for now. 3. Once the patient is stronger, a voiding trial may be in order. Once the patient is also stronger, I would recommend beginning the patient on Flomax. 4. From urological standpoint, it is acceptable to transfer the patient to rehab facility or residential facility whatever is most appropriate per the other physicians. I recommend the Felix catheter remain in place until he is evaluated in the office once he is back to being an outpatient. 5. Ongoing urological followup is a must. Thank you very much for involving us in the care of your patient. I will be happy to follow him along with you as well as an outpatient. Job#: [id number] cc:RODOLFO [place] MD
[2017-08-17] MEDS: MIRTAZAPINE 15 MG TAB PO SCH (20:41)
[2017-08-17] MEDS: INSULIN DETEMIR 100 UNIT/ML PEN SQ SCH (20:43)
[2017-08-18] VITALS: BP 128/70
[2017-08-18] MEDS: PANTOPRAZOL 40MG/SOD CHL 0.9% 50 ML IV SCH ×5 (01:00→20:20)
[2017-08-18] MEDS: SODIUM BICARBONATE 8.4% SYRING 150 ML in DEXTROSE 5% 1,000 ML IV SCH ×2 (03:40→16:39)
[2017-08-18 04:00] VITALS: BP_SYST 142; BP_SYST 156; BP_DIAS 81
[2017-08-18] MEDS: HYDROCODONE/APAP 5MG-325MG TAB PO PRN (04:22)
[2017-08-18 07:05] LABS: BASOPHILS % 0.1 % (0.0-1.0); EOSINOPHILS # (AUTO) 0.1 (0.0-0.4); EOSINOPHILS % 1.1 % (0.0-6.0); HEMATOCRIT 26.5 % (38.2-49.6); HEMOGLOBIN 8.5 g/dL (14.0-18.0); LYMPHOCYTES # (AUTO) 1.1 (1.0-3.2); LYMPHOCYTES % 14.6 % (18.0-39.1); MEAN CORPUSCULAR HEMOGLOBIN 28.2 pg (28-32); MEAN CORPUSCULAR HGB CONC 32.1 g/dL (31-35); MONOCYTES # (AUTO) 0.8 (0.2-0.8); MONOCYTES % 11.2 % (4.4-11.3); NEUTROPHILS # (AUTO) 5.4 (2.1-6.9); NEUTROPHILS % 72.6 % (38.7-80.0); PLATELET COUNT 317 x10e3/uL (140-360); RED BLOOD COUNT 3.01 x10e6/uL (4.3-5.7); RED CELL DISTRIBUTION WIDTH 17.1 % (11.7-14.4)
[2017-08-18 07:30] LABS: ALBUMIN 1.1 g/dL (3.5-5.0); ALBUMIN/GLOBULIN RATIO 0.3 (0.8-2.0); ANION GAP 10.3 mmol/L (8-16); CALCIUM 7.8 mg/dL (8.4-10.2); CREATININE, SERUM 1.39 mg/dL (0.72-1.25); POTASSIUM 4.3 mmol/L (3.5-5.1)
[2017-08-18] MEDS: INSULIN REGULAR, HUMAN 100 UNIT/1 ML 3ML VIAL SQ SCH ×4 (07:30→21:00)
[2017-08-18 08:00] VITALS: BP 123/64
[2017-08-18] MEDS: CARVEDILOL 12.5 MG TAB PO SCH (09:00)
[2017-08-18] MEDS: FOLIC ACID 1 MG TAB PO SCH (09:00)
[2017-08-18] MEDS: DICLOFENAC EPOLAMINE 1.3% PATCH TP SCH ×2 (09:00→18:41)
[2017-08-18] MEDS: FERROUS SULFATE 325 MG TAB PO SCH (09:00)
[2017-08-18] MEDS: LACTOBACILLUS ACIDOPHILUS CAPSULE PO SCH ×2 (09:00→20:09)
[2017-08-18] MEDS ORDERED: FUROSEMIDE INJ 10 MG/ML 4 ML VIAL IV ONE ×2 (11:50→17:00)
[2017-08-18 12:00] VITALS: BP 150/74
[2017-08-18 16:00] VITALS: BP 121/71
[2017-08-18] MEDS ORDERED: SODIUM BICARBONATE 8.4% SYRING 50 ML ONE (16:10)
[2017-08-18] MEDS: MIRTAZAPINE 15 MG TAB PO SCH (20:10)
[2017-08-18] MEDS: INSULIN DETEMIR 100 UNIT/ML PEN SQ SCH (21:00)
[2017-08-19] MEDS: PANTOPRAZOL 40MG/SOD CHL 0.9% 50 ML IV SCH ×4 (00:15→15:15)
--- NOTE | 2017-08-19 01:14 | Diagnostic Imaging Report ---
EXAM: US TESTICULAR DOPPLER LTD, US TESTICULAR INDICATION: Swelling COMPARISON: None TECHNIQUE: Grayscale and color Doppler images of the testicles and scrotal contents were obtained. FINDINGS: RIGHT: The right testicle measures 3.2 x 2.3 x 2.3 cm. No testicular masses. Normal flow by color doppler and spectral waveform analysis of the arterial and venous inflow. Normal appearance of the epididymis. No hydrocele or variocele. LEFT: The left testicle measures 3.1 x 2 x 2.5 cm. No testicular masses. Normal flow by color doppler and spectral waveform analysis of the arterial and venous inflow. Normal appearance of the epididymis. No hydrocele or variocele. IMPRESSION: No testicular torsion. Scrotal edema. Signed by: Dr. Maddy Abel M.D. on 08/19/2017 1:11 AM
[2017-08-19] MEDS: INSULIN REGULAR, HUMAN 100 UNIT/1 ML 3ML VIAL SQ SCH ×4 (07:30→21:27)
[2017-08-19 08:00] VITALS: BP 121/71
[2017-08-19] MEDS: SODIUM BICARBONATE 8.4% SYRING 150 ML in DEXTROSE 5% 1,000 ML IV SCH (08:20)
[2017-08-19 08:25] VITALS: BP 147/76
[2017-08-19] MEDS: CARVEDILOL 12.5 MG TAB PO SCH (09:00)
[2017-08-19] MEDS: FERROUS SULFATE 325 MG TAB PO SCH (09:00)
[2017-08-19] MEDS: LACTOBACILLUS ACIDOPHILUS CAPSULE PO SCH ×2 (09:00→21:29)
[2017-08-19] MEDS: DICLOFENAC EPOLAMINE 1.3% PATCH TP SCH ×2 (09:00→17:00)
[2017-08-19] MEDS: FOLIC ACID 1 MG TAB PO SCH (09:00)
[2017-08-19 12:00] VITALS: BP 145/74
[2017-08-19 16:08] VITALS: BP 145/74
[2017-08-19 16:11] VITALS: BP 128/68
[2017-08-19] MEDS: HYDROCODONE/APAP 5MG-325MG TAB PO PRN (18:16)
[2017-08-19 20:47] VITALS: BP 130/67
[2017-08-19] MEDS: INSULIN DETEMIR 100 UNIT/ML PEN SQ SCH (21:27)
[2017-08-19] MEDS: MIRTAZAPINE 15 MG TAB PO SCH (21:29)
[2017-08-20] VITALS (7 sets, daily range): BP systolic 119–166; BP diastolic 60–76
[2017-08-20] MEDS: PANTOPRAZOL 40MG/SOD CHL 0.9% 50 ML IV SCH ×4 (01:25→21:39)
[2017-08-20] MEDS: SODIUM BICARBONATE 8.4% SYRING 150 ML in DEXTROSE 5% 1,000 ML IV SCH ×2 (01:25→17:12)
[2017-08-20 06:24] LABS: BASOPHILS % 0.5 % (0.0-1.0); EOSINOPHILS # (AUTO) 0.2 (0.0-0.4); EOSINOPHILS % 2.4 % (0.0-6.0); LYMPHOCYTES # (AUTO) 2.2 (1.0-3.2); LYMPHOCYTES % 26.2 % (18.0-39.1); MEAN CORPUSCULAR HEMOGLOBIN 28.1 pg (28-32); MEAN CORPUSCULAR HGB CONC 32.1 g/dL (31-35); MEAN CORPUSCULAR VOLUME 87.5 fL (81-99); MONOCYTES # (AUTO) 1.1 (0.2-0.8); MONOCYTES % 12.4 % (4.4-11.3); NEUTROPHILS # (AUTO) 4.9 (2.1-6.9); NEUTROPHILS % 58.3 % (38.7-80.0); PLATELET COUNT 370 x10e3/uL (140-360); RED CELL DISTRIBUTION WIDTH 16.4 % (11.7-14.4)
[2017-08-20 06:53] LABS: ALBUMIN 1.2 g/dL (3.5-5.0); ALBUMIN/GLOBULIN RATIO 0.4 (0.8-2.0); ANION GAP 9.8 mmol/L (8-16); CREATININE, SERUM 1.3 mg/dL (0.72-1.25); POTASSIUM 3.8 mmol/L (3.5-5.1)
[2017-08-20] MEDS: INSULIN REGULAR, HUMAN 100 UNIT/1 ML 3ML VIAL SQ SCH ×4 (07:30→20:51)
[2017-08-20] MEDS: FOLIC ACID 1 MG TAB PO SCH (09:00)
[2017-08-20] MEDS: DICLOFENAC EPOLAMINE 1.3% PATCH TP SCH ×2 (09:00→17:00)
[2017-08-20] MEDS: LACTOBACILLUS ACIDOPHILUS CAPSULE PO SCH ×2 (09:00→20:51)
[2017-08-20] MEDS: CARVEDILOL 12.5 MG TAB PO SCH (09:00)
[2017-08-20] MEDS: FERROUS SULFATE 325 MG TAB PO SCH (09:00)
[2017-08-20] MEDS: FUROSEMIDE 40 MG TAB PO SCH (09:00)
[2017-08-20] MEDS: MIRTAZAPINE 15 MG TAB PO SCH (20:51)
[2017-08-21 01:08] VITALS: BP 143/66
[2017-08-21] MEDS: PANTOPRAZOL 40MG/SOD CHL 0.9% 50 ML IV SCH ×5 (05:22→22:30)
[2017-08-21] MEDS: VANCOMYCIN 250MG/5ML ORAL SOLN PO SCH ×3 (05:25→17:23)
[2017-08-21 05:39] VITALS: BP 50/74
[2017-08-21] MEDS: INSULIN REGULAR, HUMAN 100 UNIT/1 ML 3ML VIAL SQ SCH ×4 (07:30→21:00)
[2017-08-21 08:00] VITALS: BP 133/77
[2017-08-21] MEDS: DICLOFENAC EPOLAMINE 1.3% PATCH TP SCH ×2 (09:00→17:00)
[2017-08-21] MEDS: FUROSEMIDE 40 MG TAB PO SCH (09:48)
[2017-08-21] MEDS: LACTOBACILLUS ACIDOPHILUS CAPSULE PO SCH ×2 (09:48→22:15)
[2017-08-21] MEDS: FERROUS SULFATE 325 MG TAB PO SCH (09:48)
[2017-08-21] MEDS: FOLIC ACID 1 MG TAB PO SCH (09:48)
[2017-08-21] MEDS: CARVEDILOL 12.5 MG TAB PO SCH (09:48)
[2017-08-21] MEDS: SODIUM BICARBONATE 8.4% SYRING 150 ML in DEXTROSE 5% 1,000 ML IV SCH (09:49)
[2017-08-21] MEDS: HYDROCODONE/APAP 5MG-325MG TAB PO PRN (09:49)
[2017-08-21 12:00] VITALS: BP_SYST 153; BP_SYST 99; BP_DIAS 75; BP_DIAS 79
[2017-08-21 16:00] VITALS: BP 115/67
--- NOTE | 2017-08-21 18:33 | Diagnostic Imaging Report ---
EXAM: Complete Abdominal Ultrasound INDICATION: Abdominal pain elevated LFTs COMPARISON: None. TECHNIQUE: Transverse and longitudinal images of the upper abdomen were obtained. FINDINGS: Liver: Size: 13.3 cm in the right midclavicular line, normal Appearance: Coarsened echotexture, smooth contour Mass: No focal masses Spleen: Size: 10.0 cm in length, normal Echogenicity: Normal Mass: No focal masses Gallbladder: Status post cholecystectomy. Bile Ducts: Intrahepatic Ducts: No dilatation Extrahepatic Ducts: Common bile duct measures 0.5 cm, no dilatation Pancreas: Not well visualized due to shadowing from overlying bowel gas. Kidneys: Length: Right 9.6 cm Left 9.3 cm Echogenicity: Right: Normal. Left: Increased Collecting System: No hydronephrosis Stone: None Cyst/Mass: None Vessels: Aorta: Visualized portions of the proximal to mid are unremarkable. Distal aorta not visualized due to shadowing from overlying bowel gas. Inferior Vena Cava: Visualized portions are normal Main Portal Vein: 1.0 cm, normal size with hepatopetal flow. Free Fluid: Bilateral moderate pleural effusions. Moderate ascites. IMPRESSION: 1. Moderate volume ascites. 2. Bilateral moderate volume pleural effusions. 3. Status post cholecystectomy. No significant biliary dilatation. Signed by: Dr. Eze Ortega M.D. on 08/21/2017 6:29 PM
[2017-08-21 20:00] VITALS: BP 143/65
[2017-08-21] MEDS: MIRTAZAPINE 15 MG TAB PO SCH (22:15)
[2017-08-22] VITALS: BP 145/66
[2017-08-22] MEDS: VANCOMYCIN 250MG/5ML ORAL SOLN PO SCH ×3 (00:49→11:40)
[2017-08-22] MEDS: SODIUM BICARBONATE 8.4% SYRING 150 ML in DEXTROSE 5% 1,000 ML IV SCH (00:49)
[2017-08-22 04:00] VITALS: BP 139/65
[2017-08-22] MEDS: PANTOPRAZOL 40MG/SOD CHL 0.9% 50 ML IV SCH ×3 (04:20→11:40)
[2017-08-22 06:16] LABS: BASOPHILS % 0.3 % (0.0-1.0); EOSINOPHILS # (AUTO) 0.1 (0.0-0.4); EOSINOPHILS % 0.9 % (0.0-6.0); HEMATOCRIT 26.8 % (38.2-49.6); HEMOGLOBIN 8.5 g/dL (14.0-18.0); LYMPHOCYTES # (AUTO) 1.7 (1.0-3.2); LYMPHOCYTES % 18.2 % (18.0-39.1); MEAN CORPUSCULAR HEMOGLOBIN 28.1 pg (28-32); MEAN CORPUSCULAR HGB CONC 31.7 g/dL (31-35); MEAN CORPUSCULAR VOLUME 88.4 fL (81-99); MONOCYTES # (AUTO) 0.9 (0.2-0.8); MONOCYTES % 9.7 % (4.4-11.3); NEUTROPHILS # (AUTO) 6.7 (2.1-6.9); NEUTROPHILS % 70.5 % (38.7-80.0); PLATELET COUNT 360 x10e3/uL (140-360); RED BLOOD COUNT 3.03 x10e6/uL (4.3-5.7)
[2017-08-22 06:41] LABS: ALBUMIN 1.2 g/dL (3.5-5.0); ALBUMIN/GLOBULIN RATIO 0.4 (0.8-2.0); ANION GAP 7.9 mmol/L (8-16); CALCIUM 7.9 mg/dL (8.4-10.2); CREATININE, SERUM 1.37 mg/dL (0.72-1.25); POTASSIUM 3.9 mmol/L (3.5-5.1)
[2017-08-22] MEDS: INSULIN REGULAR, HUMAN 100 UNIT/1 ML 3ML VIAL SQ SCH ×2 (07:30→11:30)
[2017-08-22 08:00] VITALS: BP 131/69
[2017-08-22] MEDS: FERROUS SULFATE 325 MG TAB PO SCH (08:55)
[2017-08-22] MEDS: FOLIC ACID 1 MG TAB PO SCH (08:55)
[2017-08-22] MEDS: CARVEDILOL 12.5 MG TAB PO SCH (08:55)
[2017-08-22] MEDS: FUROSEMIDE 40 MG TAB PO SCH (08:55)
[2017-08-22] MEDS: LACTOBACILLUS ACIDOPHILUS CAPSULE PO SCH (08:55)
[2017-08-22] MEDS: DICLOFENAC EPOLAMINE 1.3% PATCH TP SCH (08:55)
[2017-08-22] MEDS ORDERED: FUROSEMIDE INJ 10 MG/ML 4 ML VIAL IV ONE (09:45)
[2017-08-22] MEDS ORDERED: ALBUMIN 25% 25GM 0.25 GM/ML BTL IV ONE (09:45)
[2017-08-22] MEDS ORDERED: ALBUMIN 25% 25GM 100 ML IV ONE (09:45)
[2017-08-22] MEDS ORDERED: HYDROCODONE/APAP 5MG-325MG TAB PO PRN (09:45)
[2017-08-22 12:00] VITALS: BP 111/50
--- NOTE | 2017-08-22 14:25 | Discharge Summary ---
HISTORY: This is a 77-year-old male patient of mine presented with a complaint of severe diarrhea. Patient has C. diff colitis, which was worsened in spite of the treatment with vancomycin and Flagyl. Patient also had renal failure. ADMITTING DIAGNOSES 1. Clostridium difficile colitis. 2. Severe dehydration. 3. Renal failure. 4. Diabetes mellitus. 5. Coronary artery disease. 6. Right lower leg wound from the dog bite. HOSPITAL COURSE SUMMARY: Patient was admitted with above diagnoses. ID consult was done. Aggressive rehydration was given. Nephrology consult was done. Patient was given oral vancomycin. During hospitalization course, patient had worsened the condition and patient had acute renal failure and patient developed fulminant sepsis with C. diff and patient was requiring total colectomy and patient had to go to ICU. Patient had a total colostomy and ileostomy was done. Postop course was also complicated. Patient developed ileus. Because of that, patient required prolonged TPN. Patient has poor oral intake. Patient had anemia, so hematology/oncology consult was done by Dr. Retana. Patient had GI consult done by Dr. Nimesh Torres and surgery was done by Dr. Alvarez. Pulmonary consult was done by Dr. Hudson for sepsis and cardiology, Dr. Cortés. Patient's renal function had improved from creatinine from 4 to 1.56. Patient was given intermittently hemodialysis. Patient has severe debilitation. PEG tube placement was entertained, patient had declined it. Patient continued to have fair oral intake around 40-50%. Remeron is added for the increasing appetite. LTAC evaluation was requested, which was declined by the insurance company, so SNF eval has been done. Now upon clinical stabilization, but patient need continues care, the SNF eval has been done and patient will be transferred to SNF. Patient need closer watch for calorie count and patient might need a PEG tube. Dietary is on the board. Patient will be sent to [facility]. Patient will need close followup. DISCHARGE DIAGNOSES 1. Severe Clostridium difficile colitis. 2. Sepsis. 3. Acute renal failure, needing hemodialysis. 4. Colitis needed total colectomy and ileostomy. 5. Postoperative ileus requiring total parenteral nutrition. 6. Anemia. 7. Renal failure. 8. Severe debilitation. 9. Malnutrition. RODOLFO [place] MD Job#: [id number] VAS
--- NOTE | 2017-08-22 15:24 | Discharge Summary ---
He is a 77-year-old male patient that was admitted with severe C. diff. ADMITTING IMPRESSION/DIAGNOSES 1. Clostridium difficile. 2. Sepsis. 3. Acute renal failure. 4. Anemia. 5. Severe dehydration. 6. Right calf wound. 7. Diabetes mellitus. 8. Coronary artery disease. 9. Hypertension. 10. Hyperlipidemia. HOSPITAL COURSE SUMMARY: The patient was admitted with the above diagnosis. The patient was treated with p.o. vancomycin, aggressive rehydration and Flagyl. Nephrology and ID consult was done. During the hospitalization course, the patient had multiple complications and prolonged course of hospitalization. The patient had severe sepsis from the C. diff and required a total colectomy and ileostomy was done. The patient was in the ICU postop. The patient had small bowel ileus postop, which required prolonged TPN course. The patient had renal failure also during sepsis requiring temporary hemodialysis. The patient received hemodialysis treatment also by Dr. Grant. The patient had gradual oral intake started. The patient remained with poor oral intake. He was eating like 30% to 40% of the meals. The patient also had anemia requiring blood transfusions. The patient was given IV albumin. The patient had multiple talks by renal and GI for the possible PEG tube placement. This patient had declined. The patient had high LFTs, so Lipitor was stopped. The patient had ascites secondary to the hypoalbuminemia and severe nutritional deficiency. The patient was continued with p.o. vancomycin for his C. diff infection. Poor appetite stimulant of mirtazapine was started. Will increase it to 30 mg. The patient has also depression. Upon stabilization, the patient will be transferred to custodial care. If the patient's appetite improves and is better, then other meds will be given for depression. Later on, will decide. If he is not eating, then PEG tube will be placed. Depends on the patient's progression. At this time, the patient is refusing further PEG tube. I have had a lengthy discussion with the patient for his further care. Will increase the antidepressive medicine. RODOLFO [place] MD Job#: [id number] [place]
[2017-08-22] MEDS ORDERED: MIRTAZAPINE 15 MG TAB PO SCH (21:00)
== END 2017-08-22 15:56 | DRG 853 ==
LOC: MED/SURG3 12:53 → OBSVTOIN 07-26 13:00 → ICU 07-27 08:50 → MED/SURG2 08-05 22:53
PROVIDERS: ADMIT Internal Medicine; ATTEND Internal Medicine
PROC: 5A1D70Z Performance of Urinary Filtration, Intermittent, Less than 6 Hours Per Day (ICD-10-PCS; 2017-07-26)
PROC: 02HV33Z Insertion of Infusion Device into Superior Vena Cava, Percutaneous Approach (ICD-10-PCS; 2017-07-27)
PROC: 0D1B0Z4 Bypass Ileum to Cutaneous, Open Approach (ICD-10-PCS; 2017-07-28)
PROC: 5A1D70Z Performance of Urinary Filtration, Intermittent, Less than 6 Hours Per Day (ICD-10-PCS; 2017-07-28)
PROC: 30233K1 Transfusion of Nonautologous Frozen Plasma into Peripheral Vein, Percutaneous Approach (ICD-10-PCS; 2017-07-28)
PROC: 0DTF0ZZ Resection of Right Large Intestine, Open Approach (ICD-10-PCS; principal; 2017-07-28 10:00)
PROC: 3E0336Z Introduction of Nutritional Substance into Peripheral Vein, Percutaneous Approach (ICD-10-PCS; 2017-07-30)
PROC: 30233R1 Transfusion of Nonautologous Platelets into Peripheral Vein, Percutaneous Approach (ICD-10-PCS; 2017-07-30)
PROC: 5A1D70Z Performance of Urinary Filtration, Intermittent, Less than 6 Hours Per Day (ICD-10-PCS; 2017-07-31)
PROC: 02HV33Z Insertion of Infusion Device into Superior Vena Cava, Percutaneous Approach (ICD-10-PCS; 2017-08-02)
PROC: 30233N1 Transfusion of Nonautologous Red Blood Cells into Peripheral Vein, Percutaneous Approach (ICD-10-PCS; 2017-08-04)
PROC: 031C0ZF Bypass Left Radial Artery to Lower Arm Vein, Open Approach (ICD-10-PCS; 2017-08-13)
DX: A41.9 Sepsis, unspecified organism (principal); N18.6 End stage renal disease; R65.21 Severe sepsis with septic shock; E43 Unspecified severe protein-calorie malnutrition; A04.72 Enterocolitis due to Clostridium difficile, not specified as recurrent; N17.9 Acute kidney failure, unspecified; E87.2 Acidosis; J90 Pleural effusion, not elsewhere classified; R18.8 Other ascites; I31.3 Pericardial effusion (noninflammatory); I12.0 Hypertensive chronic kidney disease with stage 5 chronic kidney disease or end stage renal disease; K56.7 Ileus, unspecified; N39.0 Urinary tract infection, site not specified; E86.0 Dehydration; I25.10 Atherosclerotic heart disease of native coronary artery without angina pectoris; E11.42 Type 2 diabetes mellitus with diabetic polyneuropathy; E03.9 Hypothyroidism, unspecified; K21.9 Gastro-esophageal reflux disease without esophagitis; D63.8 Anemia in other chronic diseases classified elsewhere; D69.6 Thrombocytopenia, unspecified; E87.6 Hypokalemia; D72.823 Leukemoid reaction; E77.8 Other disorders of glycoprotein metabolism; E88.09 Other disorders of plasma-protein metabolism, not elsewhere classified; N50.0 Atrophy of testis; R33.9 Retention of urine, unspecified; E83.51 Hypocalcemia; E11.22 Type 2 diabetes mellitus with diabetic chronic kidney disease; S81.851D Open bite, right lower leg, subsequent encounter; W54.0XXD Bitten by dog, subsequent encounter; R62.7 Adult failure to thrive; Z68.25 Body mass index [BMI] 25.0-25.9, adult; M19.079 Primary osteoarthritis, unspecified ankle and foot; B96.20 Unspecified Escherichia coli [E. coli] as the cause of diseases classified elsewhere; D50.0 Iron deficiency anemia secondary to blood loss (chronic)
CPT/HCPCS: 36415; 36430; 36556; 36600; 51701; 71045; 71046; 74018; 74176; 74470; 76700; 76770; 76870; 76937; 77001; 80048; 80053; 81001; 82150; 82270; 82607; 82746; 82805; 82948; 83036; 83540; 83605; 83690; 83735; 84100; 84439; 84443; 84466; 84550; 85025; 85045; 85610; 85730; 86022; 86704; 86706; 86850; 86900; 86920; 87040; 87045; 87086; 87177; 87186; 87328; 87340; 87493; 88307; 90962; 93306; 93970; 93976; 94002; 96361; 96365; 96366; 96372; 97139; C1751; G0378; J0694; J1644; J1756; J1940; J2001; J2250; J2270; J2370; J2405; J2550; J3430; J3480; J7030; J7040; J7050; J7070; J7799; P9016; P9017; P9034; P9047

== ENCOUNTER 2017-08-27 20:29 | Inpatient (IN) | payer MEDICARE ==
[~2017-08-27] VITALS: Ht 167.6 cm; Wt 76.8 kg
[~2017-08-27 20:29] MED LIST changes: +ACIDOPHILUS1 EAC1 PO; +ATORVASTATIN CA20 MG PO; +COREG3.125 MG PO; +ETOMIDATE 40 MG/ 20ML VIAL IV ONE; +FERROUS SULFAT325 MG PO; +FOLIC ACID1 MG PO; +LOSARTAN POTAS100 MG PO; +PANTOPRAZOLE SO40 MG PO; +SILVADENE20 GM TOP; +SUCCINYLCHOLINE 200 MG/10 ML SYR ONE
--- OUTSIDE RECORDS SUMMARY | 2017-08-27 20:32 | XMS REPORT ---
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 Allergies, Adverse Reactions, Alerts This patient has no known allergies or adverse reactions. Medications This patient has no known medications. Results Test Description Test Time Test Comments Text Results Atomic Results Result Comments US ABDOMEN COMPLETE [place] [address] Patient Name: NELSON AVILA MR #: [id number] : 1940 Age/Sex: 77/M Req # : [id number] Adm Physician: RODOLFO [place] MD Ordered by: RODOLFO [place] MD Report #: [id number] Location: MED/SURG2 Room/Bed: [facility] _ Procedure: [id number] US/US ABDOMEN COMPLETE Exam Date: Exam Time: REPORT STATUS: Signed EXAM: Complete Abdominal Ultrasound INDICATION: Abdominal pain elevated LFTs COMPARISON: None. TECHNIQUE: Transverse and longitudinal images of the upper abdomen were obtained. FINDINGS: Liver: Size: 13.3 cm in the right midclavicular line, normal Appearance: Coarsened echotexture, smooth contour Mass: No focal masses Spleen: Size: 10.0 cm in length, normal Echogenicity: Normal Mass: No focal masses Gallbladder: Status post cholecystectomy. Bile Ducts: Intrahepatic Ducts: No dilatation Extrahepatic Ducts: Common bile duct measures 0.5 cm, no dilatation Pancreas: Not well visualized due to shadowing from overlying bowel gas. Kidneys: Length: Right 9.6 cm Left 9.3 cm Echogenicity: Right: Normal. Left: Increased Collecting System: No hydronephrosis Stone : None Cyst/Mass: None Vessels: Aorta: Visualized portions of the proximal to mid are unremarkable. Distal aorta not visualized due to shadowing from overlying bowel gas. Inferior Vena Cava: Visualized portions are normal Main Portal Vein: 1.0 cm, normal size with hepatopetal flow. Free Fluid: Bilateral moderate pleural effusions. Moderate ascites. IMPRESSION: 1. Moderate volume ascites. 2. Bilateral moderate volume pleural effusions. 3. Status post cholecystectomy. No significant biliary dilatation. Signed by: Dr. Eze Toledo M.D. on 08/21/2017 6:29 PM Dictated By: ESTUARDO TOLEDO MD, MD 28 Transcribed By: ИРИНА on 08/21/171828 COPY TO: ROD[place] MD US TESTICULAR [place] [address] Patient Name: NELSON AVILA MR #: [id number] : 1940 Age/Sex: 77/M Req #: [id number] Adm Physician: R[place]OLFO [place] MD Ordered by: TOÑA GREEN MD Report #: [id number] Location: MED/SURG2 Room/Bed: [facility] _ Procedure: [id number] US/US TESTICULAR Exam Date: Exam Time: REPORT STATUS: Signed EXAM: US TESTICULAR DOPPLER LTD , US TESTICULAR INDICATION: Swelling COMPARISON: None TECHNIQUE: Grayscale and color Doppler images of the testicles and scrotal contents were obtained. FINDINGS: RIGHT: The right testicle measures 3.2 x 2.3 x 2.3 cm. No testicular masses. Normal flow by color doppler and spectral waveform analysis of the arterial and venous inflow. Normal appearance of the epididymis. No hydrocele or variocele. LEFT: The left testicle measures 3.1 x 2 x 2.5 cm. No testicular masses. Normal flow by color doppler and spectral waveform analysis of the arterial and venous inflow. Normal appearance of the epididymis. No hydrocele or variocele. IMPRESSION: No testicular torsion. Scrotal edema. Signed by : Dr. Eleonora Abel M.D. on 08/19/2017 1:11 AM Dictated By: ELEONORA ABEL MD 0 Transcribed By: ИРИНА on 08/19/17110 COPY TO: TOÑA GREEN MD US TESTICULAR DOPPLER LTD [place] [address] Patient Name: NELSON AVILA MR #: [id number] : 1940 Age/Sex: 77/M Req #: [id number] Adm Physician: RODOLFO [place] MD Ordered by: TOÑA GREEN MD Report #: [id number] Location: MED/SURG2 Room/Bed: [facility] Procedure: [id number] US/US TESTICULAR DOPPLER LTD Exam Date: Exam Time: REPORT STATUS: Signed EXAM: US TESTICULAR DOPPLER LTD, US TESTICULAR INDICATION: Swelling COMPARISON: None TECHNIQUE: Grayscale and color Doppler images of the testicles and scrotal contents were obtained. FINDINGS: RIGHT: The right testicle measures 3.2 x 2.3 x 2.3 cm. No testicular masses. Normal flow by color doppler and spectral waveform analysis of the arterial and venous inflow. Normal appearance of the epididymis. No hydrocele or variocele. LEFT: The left testicle measures 3.1 x 2 x 2.5 cm. No testicular masses. Normal flow by color doppler and spectral waveform analysis of the arterial and venous inflow. Normal appearance of the epididymis. No hydrocele or variocele. IMPRESSION: No testicular torsion. Scrotal edema. Signed by: Dr. Eleonora Abel M.D. on 08/19/2017 1:11 AM Dictated By: ELEONORA ABEL MD 0 Transcribed By: ИРИНА on 110 COPY TO: TOÑA GREEN MD CHEST 2 VIEWS [place] [address] Patient Name: NELSON AVILA MR #: [id number] : 1940 Age/Sex: 77/M Req #: [id number] [facility] Physician: RODOLFO [place] MD Ordered by: JD HAINES, SHANA HAINES Report #: [id number] Location: MED/SURG2 Room/Bed: [facility] _ Procedure: [id number] DX/CHEST 2 VIEWS Exam Date: 08/12/17 Exam Time: 1415 REPORT STATUS: Signed PROCEDURE: Frontal and lateral views of the chest. COMPARISON: 08/03/17 INDICATIONS: CONGESTIVE HEART FAILURE FINDINGS: Lines/tubes: Right internal jugular central venous catheter has its tip at the cavoatrial junction. Lungs: Limited by low lung volumes. Central peribronchovascular thickening/cuffing. Left basilar hazy opacification. Pleura: There is no pleural effusion or pneumothorax. Heart and mediastinum: The heart and the mediastinum are normal. Bones: No acute bony abnormality. IMPRESSION: Central peribronchovascular thickening/cuffing. Left basilar hazy opacification, likely a small effusion. Dictated by: Bolivar Barry M.D. on 08/12/2017 at 14:54 Electronically approved by: Bolivar Barry M.D. on 08/12/2017 at 14:54 Dictated By: BOLIVAR BARRY MD 53 Transcribed By: KIRILL on 08/12/174 COPY TO: SHANA MILES ABDOMEN-1VIEW ([facility]) [place] [address] Patient Name: NELSON AVILA MR #: [id number] : 1940 Age/Sex: 76/M Req # : [id number] Adm Physician: RODOLFO [place] MD Ordered by: ILANA CARTER MD Report #: [id number] Location: MED/SURG2 Room/Bed: [facility] ___ Procedure: [id number] DX/ABDOMEN-1VIEW ([facility]) Exam Date: 08/06/17 Exam Time: 05 REPORT STATUS: Signed EXAM: ABDOMEN-1VIEW ([facility]) DATE: 08/06/2017 5:00 AM Time stamp on exam: 5:32 AM INDICATION: Ileus COMPARISON: 08/05/2017 and 08/04/2017 FINDINGS: LINES/TUBES: Partially visualized NG tube is noted BOWEL PATTERN: Interval increase in small bowel gaseous distention measuring up to 3.9 cm in diameter SOFT TISSUES: No abnormal calcifications. No mass effect. Midline wallace are stable. LUNG BASES: Not included BONES: Moderate degenerative changes of the thoracolumbar spine. Right lower quadrant ileostomy/colostomy is visualized. IMPRESSION: Postsurgical abdomen with mild interval increase in gaseous distention of the small bowel compatible with ileus Signed by: Dr. Mark Herring M.D. on 08/06/2017 6:35 AM Dictated By: MARK GARCIA MD 4 Transcribed By: ИРИНА on 08/06/17634 COPY TO: ILANA CARTER MD ABDOMEN-1VIEW ([facility]) [place] [address] Patient Name: NELSON AVILA MR #: [id number] : 1940 Age/Sex: 76/M Req # : [id number] Adm Physician: RODOLFO [place] MD Ordered by: ILANA CARTER MD Report #: [id number] Location: ICU Room/Bed: ICU [facility] _ Procedure: [id number] DX/ABDOMEN-1VIEW ([facility]) Exam Date: 08/05/17 Exam Time: 519 REPORT STATUS: Signed ABDOMEN-1VIEW ( [facility]) Clinical history: Small bowel ileus Technique: AP view abdomen Comparison: Previous day Findings: Upper abdomen is excluded from view. NG tube is not seen; it may be obscured by motion, out of the [id number] or removed. Interval decrease in small bowel dilatation. Right lower quadrant ostomy. Overlying skin wallace. Impression: Improved small bowel ileus. Signed by: Dr Kapil Tran MD on 08/05/2017 5:59 AM Dictated By: KAPIL TRAN MD 8 Transcribed By: ИРИНА on 08/05/17558 COPY TO: ILANA CARTER MD ABDOMEN-1VIEW ([facility]) [place] [address] Patient Name: NELSON AVILA MR #: [id number] : 1940 Age/Sex: 76/M Req # : [id number] Adm Physician: R[place] MD Ordered by: ILANA CARTER MD Report #: [id number] Location: ICU Room/Bed: ICU [facility] _ Procedure: [id number] DX/ABDOMEN-1VIEW (K[facility]) Exam Date: 08/04/17 Exam Time: 0500 REPORT STATUS: Signed ABDOMEN-1VIEW ( [facility]) Clinical history: No bowel ileus Technique: AP view abdomen Comparison: Previous day Findings: Hemidiaphragms are excluded. NG tube noted over the left upper quadrant. Persistent diffusely dilated loops of small bowel. Right lower quadrant ostomy. Overlying skin wallace. Impression: Persistent small bowel ileus. Attention on follow-up. Signed by: Dr Kapil Tran MD on 08/04/2017 5:58 AM Dictated By: KAPIL TRAN MD 7 Transcribed By: ИРИНА on 08/04/17557 COPY TO: ILANA CARTER MD CHEST SINGLE (PORTABLE) [place] [address] Patient Name: NELSON AVILA MR #: [id number] : 1940 Age/Sex: 76/M Req #: [id number] Adm Physician: R[place]OLFO [place] MD Ordered by: VAIBHAV OBREGON MD Report #: [id number] Location: ICU Room/Bed: ICU 192 ___ Procedure: [id number] DX/CHEST SINGLE (PORTABLE) Exam Date: 08/03/17 Exam Time: 1140 REPORT STATUS: Signed EXAMINATION: CHEST SINGLE (PORTABLE) 08/03/2017 11:13 AM COMPARISON : 07/29/2017 INDICATION: Shortness of breath DISCUSSION: LINES: Right IJ sheath has its tip in the right atrium. Right internal jugular central venous catheter has its tip at the cavoatrial junction. Enteric tube has its tip in the gastric body. The patient has been extubated. LUNGS PLEURA: Low lung volumes with basilar atelectasis and small pleural effusions, right greater than left. HEART AND MEDIASTINUM: Normal heart size. Tortuous thoracic aorta. BONES AND SOFT TISSUES: No acute osseous lesion. The soft tissues are normal. IMPRESSION: Low lung volumes with basilar atelectasis and small bilateral pleural effusions. This is unchanged. The patient has been extubated. Lines and tubes are otherwise unchanged. Vlad Nj MD Signed by: Dr. Vlad Nj M.D. on 08/03/2017 12:52 PM Dictated By: VLAD NJ MD 1252 Transcribed By: ИРИНА on 08/03/17 1252 COPY TO: VAIBHAV OBREGON MD [facility] [place] [address] Patient Name: NELSON AVILA MR #: [id number] : 1940 Age/Sex: 76/M Req # : [id number] Adm Physician: R[place] MD Ordered by: ILANA CARTER MD Report #: [id number] Location: ICU Room/Bed: ICU 192 _ Procedure: [id number] DX/ABDOMEN-1VIEW (K[facility]) Exam Date: Exam Time: REPORT STATUS: Signed EXAMINATION: ABDOMEN- 1VIEW (KUB) 08/03/2017 9:00 AM COMPARISON: None INDICATION: Suspected ileus DISCUSSION: 1 view of the abdomen (AP supine) Diffuse dilatation of all the small bowel loops. No colonic dilatation. No evidence of pneumoperitoneum. Enteric tube tip projected over the gastric body. No abnormal calcifications projected over the urinary tracts. Skin wallace, unchanged. Degenerative changes of the thoracic and lumbar spine. IMPRESSION: Stable diffuse dilatation of the small bowel loops. Ileus is favored over obstruction. Vlad Nj MD Signed by: Dr. Vlad Nj M.D. on 08/03/2017 9:22 AM Dictated By: VLAD NJ MD 1 Transcribed By: ИРИНА on 08/03/17921 COPY TO: ILANA CATRER MD ABDOMEN-1VIEW (KUB) [place] [address] Patient Name: NELSON AVILA MR #: [id number] : 1940 Age/Sex: 76/M Req # : [id number] Adm Physician: RODOLFO [place] MD Ordered by: ILANA CARTER MD Report #: [id number] Location: ICU Room/Bed: ICU 192-1 _ Procedure: DX/ABDOMEN-1VIEW (KUB) Exam Date: 08/03/17 Exam Time: 319 REPORT STATUS: Signed ABDOMEN-1VIEW ( [facility]) Clinical history: Small bowel obstruction Technique: AP view abdomen Comparison: Previous day Findings: NG tube terminates over the left upper quadrant. Persistent diffusely dilated loops of small bowel. Mild high density which may reflect contrast. Overlying skin wallace. Impression: Findings favored to reflect ileus. Attention on follow-up. Signed by: Dr Kapil Tran MD on 08/03/2017 3:42 AM Dictated By: KAPIL TRAN MD 1 Transcribed By: ИРИНА on 08/03/17341 COPY TO: ILANA CARTER MD ABDOMEN-1VIEW ([facility]) [place] [address] Patient Name: NELSON AVILA MR #: [id number] : 1940 Age/Sex: 76/M Req # : [id number] Adm Physician: RODOLFO [place] MD Ordered by: VAIBHAV JARA MD Report #: [id number] Location: ICU Room/Bed: ICU 192-1 Procedure: DX/ABDOMEN-1VIEW (KUB) Exam Date: 08/02/17 Exam Time: 1425 REPORT STATUS: Signed PROCEDURE: X- RAY ABDOMEN - KUB COMPARISON: Patients [facility], DX, ABDOMEN- 1VIEW (KUB), 07/28/2017, 14:33. INDICATIONS: POST OP DISTENTION FINDINGS: Multiple air-filled, dilated loops of small bowel are again noted in the right and left abdomen, with maximal measurement of 4.0 cm, slightly more prominent in the left abdomen when compared to prior exam. No definite large bowel dilation is identified. No abnormal calcifications overlie the genitourinary system. No acute bony abnormalities. Metallic wallace project in the abdominal and pelvic midline. CONCLUSION: 1. Multiple air-filled, dilated loops of small bowel are again noted, slightly more prominent in the left abdomen when compared to prior exam, suggesting postoperative ileus. Vikash Pozo M.D. Dictated by: Vikash Pozo M.D. on 08/02/2017 at 17:48 Electronically approved by: Vikash Pozo M.D. on 08/02/2017 at 17:48 Dictated By: VIKASH POZO MD 47 Transcribed By: KIRILL on 08/02/171747 COPY TO: VAIBHAV JARA MD CHEST SINGLE (PORTABLE) [place] [address] Patient Name: NELSON AVILA MR #: [id number] : 1940 Age/Sex: 76/M Req #: [id number] Adm Physician: R[place] MD Ordered by: VAIBHAV OBREGON MD Report #: [id number] Location: ICU Room/Bed: ICU 192 ___ Procedure: [id number] DX/CHEST SINGLE (PORTABLE) Exam Date: Exam Time: REPORT STATUS: Signed EXAM: CHEST SINGLE (PORTABLE), AP 1 view INDICATION: Intubated COMPARISON: AP view of the chest July 28, 2017 FINDINGS: LINES/TUBES: Stable right internal jugular vein temporary hemodialysis catheter, central line, endotracheal tube, nasal/orogastric tube LUNGS: Bibasilar atelectasis PLEURA: Small bilateral pleural effusions HEART AND MEDIASTINUM: Stable BONES AND SOFT TISSUES: No acute findings. IMPRESSION: No interval change Signed by: Dr. Eleonora Abel M.D. on 07/29/2017 6:05 AM Dictated By: ELEONORA ABEL MD 4 Transcribed By: ИРИНА on 07/29/17604 COPY TO: VAIBHAV OBREGON MD ABDOMEN-1VIEW ([facility]) [place] [address] Patient Name: NELSON AVILA MR #: [id number] : 1940 Age/Sex: 76/M Req # : [id number] Adm Physician: R[place] MD Ordered by: VAIBHAV JARA MD Report #: [id number] Location: ICU Room/Bed: ICU [facility] Procedure: [id number] DX/ABDOMEN-1VIEW ([facility]) Exam Date: 07/28/17 Exam Time: 1423 REPORT STATUS: Signed EXAM: ABDOMEN- 1VIEW ([facility]) DATE: 07/28/2017 2:05 PM INDICATION: COMPARISON: None FINDINGS: NG tube present with sideholes likely at GE junction. Gas-filled loops of small bowel are present with probable pneumoperitoneum. Skin wallace present. IMPRESSION: Pneumoperitoneum, presumed postsurgical. Advanced with of NG tube recommended. Gas- filled dilated loops of small bowel measuring up to 4 cm. Signed by: Dr. Reginaldo Toribio MD on 07/28/2017 2:42 PM Dictated By: REGINALDO TORIBIO MD 1442 Transcribed By: ИРИНА on 07/28/17 144 COPY TO: VAIBHAV JARA MD CHEST SINGLE (PORTABLE) [place] [address] Patient Name: NELSON AVILA MR #: [id number] : 1940 Age/Sex: 76/M Req #: [id number] Adm Physician: R[place] MD Ordered by: VAIBHAV OBREGON MD Report #: [id number] Location: ICU Room/Bed: ICU [facility] ___ Procedure: [id number] DX/CHEST SINGLE (PORTABLE) Exam Date: 07/28/17 Exam Time: 1423 REPORT STATUS: Signed EXAM: XR CHEST 1 VIEW DATE: 07/28/2017 11:56 AM INDICATION: Intubation COMPARISON: Previous day FINDINGS: Lines and Tubes: ET tube tip above the roger, NG tube with side holes likely above the GE junction, and 2 separate right IJ catheters with tip overlying the posterior junction. Heart and Mediastinum: No acute cardiomediastinal findings. Lungs and Pleura: Moderate bilateral airspace opacities are present which could represent edema and/or pneumonia. Small to moderate bilateral pleural effusions. Bones and Soft Tissues: No acute findings. IMPRESSION: 1. Intubation. 2. Worsening airspace opacity suggesting worsening edema and/or pneumonia. Progression of pleural effusions. Signed by: Dr. Reginaldo Toribio MD on 07/28/2017 2:41 PM Dictated By: REGINALDO TORIBIO MD 1441 Transcribed By: ИРИНА on 07/28/17 1441 COPY TO: VAIBHAV OBREGON MD CT ABDOMEN/PELVIS WO [place] [address] Patient Name: NELSON AVILA MR #: [id number] : 1940 Age/Sex: 76/M Req # : [id number] Adm Physician: R[place] MD Ordered by: JD HAINES, SHANA HAINES Report #: [id number] Location: ICU Room/Bed: ICU [facility] _ Procedure: [id number] CT/CT ABDOMEN/PELVIS WO Exam Date: 07/27/17 Exam Time: 2359 REPORT STATUS: Signed EXAM: CT ABDOMEN AND PELVIS without IV CONTRAST INDICATION: Abdominal distention, C. Difficile COMPARISON: None TECHNIQUE: The abdomen and pelvis were scanned using a multidetector helical scanner. Coronal and sagittal reformations were obtained. Routine protocol performed. IV Contrast: None Oral Contrast: Gastrografin CTDIvol has been reviewed. It is below the limits set by the Radiation Protocol Committee (RPC). FINDINGS: LOWER THORAX: Small bilateral pleural effusions with adjacent atelectasis. Partially visualized small pericardial effusion. LIVER: No masses BILIARY: Normal gallbladder. No ductal dilation. SPLEEN: No masses PANCREAS: No masses ADRENALS: No nodules RIGHT KIDNEY: No nephroureterolithiasis or hydronephrosis. LEFT KIDNEY: No nephroureterolithiasis or hydronephrosis. GI TRACT: Gastrografin in the partially visualized distal esophagus, stomach and proximal small bowel. Marked diffuse colonic wall thickening VESSELS: Advanced atherosclerotic changes of the abdominal aorta without aneurysm. PERITONEUM/RETROPERITONEUM: Small volume ascites. LYMPH NODES: No lymphadenopathy REPRODUCTIVE ORGANS: Normal BLADDER: Decompressed by Felix catheter. SOFT TISSUES: Normal BONES: No suspicious bone lesions. IMPRESSION: Fari-colitis with marked colonic wall thickening consistent with provided history of C. difficile. Small volume ascites, small pericardial effusion, and small bilateral pleural effusions. Signed by: Dr. Eleonora Abel M.D. on 07/28/2017 12:28 AM Dictated By: ELEONORA ABEL MD Transcribed By: ИРИНА on 07/28/1727 COPY TO: SHANA MILES CHEST XRAY LINE PLACEMENT [place] [address] Patient Name: NELSON AVILA MR #: [id number] : 1940 Age/Sex: 76/M Req #: [id number] Adm Physician: RODOLFO [place] MD Ordered by: NEERU DELATORRE MD Report #: [id number] Location: ICU Room/Bed: ICU [facility] Procedure: [id number] DX/CHEST XRAY LINE PLACEMENT Exam Date: 07/27/17 Exam Time: 1300 REPORT STATUS: Signed SINGLE VIEW CHEST, 07/27/2017 Clinical History: Line placement. Technique: Single, portable AP view chest. Comparison: None. Findings: See impression. Impression: 1. Right internal jugular central venous catheter with the tip at the atriocaval junction. 2. Right internal jugular non-tunneled dialysis catheter with tip in the right atrium. 3. Stable cardiac mediastinal silhouette, with mild cardiomegaly for technique. 4. Low lung volume with bibasilar subsegmental atelectasis. No pleural effusion or pneumothorax. 5. Intact skeleton. This report was generated with voice-recognition technology. Errors in speech coach can occur. Please interpret accordingly and contact a radiologist if there are any questions regarding the report. Signed by: Dr. Neeru Delatorre M.D. on 07/27/2017 1:22 PM Dictated By: NEERU DELATORRE MD 1322 Transcribed By: ИРИНА on 07/27/17 1322 COPY TO: NEERU DELATORRE MD IR CONSULT [place] [address] Patient Name: NELSON AVILA MR #: [id number] : 1940 Age/Sex: 76/M Req #: [id number] Adm Physician: RODOLFO [place] MD Ordered by: JD HAINES, SHANA HAINES Report #: [id number] Location: ICU Room/Bed: ICU [facility] Procedure: [id number] DX/IR CONSULT Exam Date: Exam Time: REPORT STATUS: Signed Non-tunneled Central Venous Catheter Placement July 27, 2017 Pre-Procedure Diagnosis: Hypotension Post- procedure Diagnosis:Hypotension Night Clerk Auditor: Kendell Delatorre Pole Classifier: None Sedation: None. 1% lidocaine local anesthesia. Estimate blood loss: <5 mL Blood administered: None Complications: None Implants/Grafts: 16 cm 7- [place] 3 lumen CVC Specimen: None Procedure: Informed consent was obtained and the patient positioned supine in the ICU. A timeout was performed , followed by preliminary ultrasound of the right internal jugular vein (see findings below). The right neck was prepped and draped in standard fashion. Using real-time ultrasound guidance a 18 gauge vascular needle was used to access the right internal jugular vein. An image was stored in the electronic medical record. A wire was advanced while monitoring the patient's cardiac rhythm and the needle exchanged for a non-tunneled central venous catheter using standard Salinger technique. At the end of the procedure the catheter was flushed, secured to the skin and a sterile dressing applied. The patient tolerated the procedure well and without immediate complication. Findings: Patent right internal jugular vein as demonstrated by normal ultrasound compressibility. Impression: Successful placement of a non- tunneled right internal jugular central venous catheter using ultrasound guidance. This report was generated with voice-recognition technology. Errors in speech coach can occur. Please interpret accordingly and contact a radiologist if there are any questions regarding the report. Signed by: Dr. Neeru Delatorre M.D. on 07/27/2017 1:39 PM Dictated By: NEERU DELATORRE MD 1339 Transcribed By: ИРИНА on 07/27/17 1339 COPY TO: SHANA MILES NON-TUNNELLED CVC CATH PLACMNT [place] [address] Patient Name: NELSON AVILA MR #: [id number] : 1940 Age/Sex: 76/M Req #: [id number] Adm Physician: RODOLFO [place] MD Ordered by: SHANA MILES MD, MD Report #: [id number] Location: ICU Room/Bed: ICU [facility] Procedure: [id number] IR/NON-TUNNELLED CVC CATH PLACMNT Exam Date: Exam Time: REPORT STATUS: Signed Non-tunneled Central Venous Catheter Placement July 27, 2017 Pre- Procedure Diagnosis: Hypotension Post-procedure Diagnosis:Hypotension Night Clerk Auditor: Kendell Delatorre Pole Classifier: None Sedation: None. 1% lidocaine local anesthesia. Estimate blood loss: <5 mL Blood administered: None Complications: None Implants/Grafts: 16 cm 7-[place] 3 lumen CVC Specimen: None Procedure: Informed consent was obtained and the patient positioned supine in the ICU. A timeout was performed, followed by preliminary ultrasound of the right internal jugular vein (see findings below) . The right neck was prepped and draped in standard fashion. Using real- time ultrasound guidance a 18 gauge vascular needle was used to access the right internal jugular vein. An image was stored in the electronic medical record. A wire was advanced while monitoring the patient's cardiac rhythm and the needle exchanged for a non-tunneled central venous catheter using standard Salinger technique. At the end of the procedure the catheter was flushed, secured to the skin and a sterile dressing applied. The patient tolerated the procedure well and without immediate complication. Findings : Patent right internal jugular vein as demonstrated by normal ultrasound compressibility. Impression: Successful placement of a non-tunneled right internal jugular central venous catheter using ultrasound guidance. This report was generated with voice-recognition technology. Errors in speech coach can occur. Please interpret accordingly and contact a radiologist if there are any questions regarding the report. Signed by: Dr. Neeru Delatorre M.D. on 07/27/2017 1:39 PM Dictated By: NEERU DELATORRE MD 133 Transcribed By : ИРИНА on 07/27/17 1338 COPY TO: SHANA MILES GUIDANCE FOR VASCULAR ACCES [place] [address] Patient Name: NELSON AVILA MR #: [id number] : 1940 Age/Sex: 76/M Req #: [id number] Adm Physician: RODOLFO [place] MD Ordered by: SHANA MILES MD, MD Report #: [id number] Location: ICU Room/Bed: [facility] [facility] Procedure: [id number] US/US GUIDANCE FOR VASCULAR ACCES Exam Date: Exam Time: REPORT STATUS: Signed Non-tunneled Central Venous Catheter Placement July 27, 2017 Pre- Procedure Diagnosis: Hypotension Post-procedure Diagnosis:Hypotension Night Clerk Auditor: Kendell Delatorre Pole Classifier: None Sedation: None. 1% lidocaine local anesthesia. Estimate blood loss: <5 mL Blood administered: None Complications: None Implants/Grafts: 16 cm 7-Rwandan 3 lumen CVC Specimen: None Procedure: Informed consent was obtained and the patient positioned supine in the ICU. A timeout was performed, followed by preliminary ultrasound of the right internal jugular vein (see findings below) . The right neck was prepped and draped in standard fashion. Using real- time ultrasound guidance a 18 gauge vascular needle was used to access the right internal jugular vein. An image was stored in the electronic medical record. A wire was advanced while monitoring the patient's cardiac rhythm and the needle exchanged for a non-tunneled central venous catheter using standard Salinger technique. At the end of the procedure the catheter was flushed, secured to the skin and a sterile dressing applied. The patient tolerated the procedure well and without immediate complication. Findings : Patent right internal jugular vein as demonstrated by normal ultrasound compressibility. Impression: Successful placement of a non-tunneled right internal jugular central venous catheter using ultrasound guidance. This report was generated with voice-recognition technology. Errors in speech coach can occur. Please interpret accordingly and contact a radiologist if there are any questions regarding the report. Signed by: Dr. Neeru Delatorre M.D. on 07/27/2017 1:39 PM Dictated By: NEERU DELATORRE MD [id number] Transcribed By : ИРИНА on 07/27/17 6465 COPY TO: SHANA MILES NON-TUNNELLED [facility] [address] [place], [place] [address] Patient Name: NELSON AVILA MR #: [id number] : 1940 Age/Sex: 76/M [facility] #: [id number] Req #: [id number] Adm Physician: RODOLFO NY MD Ordered by: JD HAINES, SHANA HAINES Report #: [id number] Location: ICU Room/Bed: ICU [facility] Procedure: [id number] IR/NON-TUNNELLED CVC CATH PLACMNT Exam Date: 07/26/17 Exam Time: 1400 REPORT STATUS: Signed PROCEDURE: NON-TUNNELLED CVC CATH PLACMNT COMPARISON: None. INDICATIONS: Renal failure. COMPLICATIONS: None MEDICATIONS: None BLOOD LOSS: Less than 2 cc. PROCEDURE: The patient was placed supine on the fluoroscopic table. Ultrasonographic evaluation of the right neck demonstrated a patent and compressible right internal jugular vein. The right neck was prepped and draped in the usual sterile fashion. 1% lidocaine was infused into the subcutaneous tissues for local anesthesia. Utilizing direct sonographic guidance, a 21 gauge needle was advanced into the right internal jugular vein. A 0.018 inch wire was advanced centrally. An access sheath was placed over the wire to secure the vascular access. The wire was upsized to a 0.035 inch wire. A single dilation was performed over the wire. A double lumen central venous catheter was advanced over the wire. The wire was removed. The catheter tip was positioned within the right atrium. The ports demonstrated proper function with aspiration and flush of sterile saline. The catheter ports were flushed with sterile saline. The catheter was secured to the skin with 3-0 Ethilon suture. A sterile dressing was applied. There were no immediate complications. The patient tolerated the procedure well. The patient was transferred to the post procedure in stable unchanged condition further monitoring. CONCLUSION: Successful placement of a right internal jugular temporary central venous dialysis catheter utilizing ultrasound and fluoroscopic guidance. Dictated by: Quan Fu M.D. on 08/02/2017 at 11:42 Electronically approved by: Quan Fu M.D. on 08/02/2017 at 11:42 Dictated By : QUAN FU MD 114 Transcribed By: KIRILL on 08/02/17 1142 COPY TO: SHANA MILES IR CONSULT [place] [address] Patient Name: NELSON AVILA MR #: [id number] : 1940 Age/Sex: 76/M Req #: [id number] Adm Physician: RODOLFO [place] MD Ordered by: SHANA MILES MD, MD Report #: [id number] Location: ICU Room/Bed: [place] [address] Procedure: [id number] DX/IR CONSULT Exam Date: Exam Time: REPORT STATUS: Signed PROCEDURE: NON-TUNNELLED CVC CATH PLACMNT COMPARISON: None. INDICATIONS: Renal failure. COMPLICATIONS: None MEDICATIONS: None BLOOD LOSS: Less than 2 cc. PROCEDURE: The patient was placed supine on the fluoroscopic table. Ultrasonographic evaluation of the right neck demonstrated a patent and compressible right internal jugular vein. The right neck was prepped and draped in the usual sterile fashion. 1% lidocaine was infused into the subcutaneous tissues for local anesthesia. Utilizing direct sonographic guidance, a 21 gauge needle was advanced into the right internal jugular vein. A 0.018 inch wire was advanced centrally. An access sheath was placed over the wire to secure the vascular access. The wire was upsized to a 0.035 inch wire. A single dilation was performed over the wire. A double lumen central venous catheter was advanced over the wire. The wire was removed. The catheter tip was positioned within the right atrium. The ports demonstrated proper function with aspiration and flush of sterile saline. The catheter ports were flushed with sterile saline. The catheter was secured to the skin with 3-0 Ethilon suture. A sterile dressing was applied. There were no immediate complications. The patient tolerated the procedure well. The patient was transferred to the post procedure in stable unchanged condition further monitoring. CONCLUSION: Successful placement of a right internal jugular temporary central venous dialysis catheter utilizing ultrasound and fluoroscopic guidance. Dictated by: Quan Fu M.D. on 08/02/2017 at 11:42 Electronically approved by: Quan Fu M.D. on 08/02/2017 at 11:42 Dictated By: QUAN FU MD 1142 Transcribed By: KIRILL on 08/02/17 1142 COPY TO: SHANA MILES RENAL RETROPERITONEAL COMP [place] [address] Patient Name: NELSON AVILA MR #: [id number] : 1940 Age/Sex: 76/M Req #: [id number] Adm Physician: RODOLFO [place] MD Ordered by: SHANA MILES MD, MD Report #: [id number] Location: [facility] Room/Bed: [facility] Procedure: [id number] US/US RENAL RETROPERITONEAL COMP Exam Date: 07/26/17 Exam Time: 1430 REPORT STATUS: Signed PROCEDURE: US RETROPERITONEAL ( KIDNEY ). COMPARISON: None. INDICATIONS: ECTOR TECHNIQUE: Mcdonald-scale and color sonographic images of the bilateral kidneys and bladder where obtained in transverse and longitudinal planes. FINDINGS: RIGHT KIDNEY: 9.4 x 5.3 x 5.2 cm, cortex 1.2 cm Cysts: None Solid masses: None Stones: None Hydronephrosis: None Echogenicity: None LEFT KIDNEY: 9.1 x 4.9 x 5.3 cm , cortex 1.3 cm Cysts: None Solid masses: None Stones: None Hydronephrosis: None Echogenicity: None Bladder: Collapsed secondary to Felix catheter. Additional Findings: Small amount of ascites in the right lower quadrant. CONCLUSION: Normal ultrasound of the kidneys. No hydronephrosis. Dictated by: Jose C Wood M.D. on 06/2017 at 15:37 Electronically approved by: Jose C Wood M.D. on 07/26 at 15:37 Dictated By: JOSE C WOOD MD 36 Transcribed By: KIRILL on 07/26/17 1537 COPY TO: SHANA MILES US GUIDANCE FOR VASCULAR ACCES [place] [address] Patient Name: NELSON AVILA MR #: [id number] : 1940 Age/Sex: 76/M Req #: [id number] Adm Physician: RODOLFO NY MD Ordered by: SHANA MILES MD, MD Report #: [id number] Location: ICU Room/Bed: [place] [address] Procedure: [id number] US/US GUIDANCE FOR VASCULAR ACCES Exam Date: 07/26/17 Exam Time: 1400 REPORT STATUS: Signed PROCEDURE: ULTRASOUND GUIDANCE FOR VASCULAR ACCESS COMPARISON: None. INDICATIONS: Temporary HD Cath FINDINGS: Right internal jugular vein is noted to be patent. Ultrasound guidance was utilized for access for PICC line placement. CONCLUSION: Patent right internal jugular vein. Successful ultrasound guidance for central venous catheter placement. Dictated by: Quan Fu M.D. on 08/02/2017 at 7:45 Electronically approved by: Quan Fu M.D. on 08/02/2017 at 7:45 Dictated By: QUAN FU MD 4 Transcribed By: KIRILL on 08/02/17744 COPY TO: SHANA MILES FLUORO GUIDANCE [address]/REM [place] [address] Patient Name: NELSON AVILA MR #: [id number] : 1940 Age/Sex: 76/M Req #: [id number] Adm Physician: RODOLFO NY MD Ordered by: SHANA MILES MD, MD Report #: [id number] Location: ICU Room/Bed: ICU [facility] Procedure: [id number] DX/FLUORO GUIDANCE [address]/REM Exam Date: 07/26/17 Exam Time: 1400 REPORT STATUS: Signed PROCEDURE: NON-TUNNELLED CVC CATH PLACMNT COMPARISON: None. INDICATIONS: Renal failure. COMPLICATIONS: None MEDICATIONS: None BLOOD LOSS: Less than 2 cc. PROCEDURE: The patient was placed supine on the fluoroscopic table. Ultrasonographic evaluation of the right neck demonstrated a patent and compressible right internal jugular vein. The right neck was prepped and draped in the usual sterile fashion. 1% lidocaine was infused into the subcutaneous tissues for local anesthesia. Utilizing direct sonographic guidance, a 21 gauge needle was advanced into the right internal jugular vein. A 0.018 inch wire was advanced centrally. An access sheath was placed over the wire to secure the vascular access. The wire was upsized to a 0.035 inch wire. A single dilation was performed over the wire. A double lumen central venous catheter was advanced over the wire. The wire was removed. The catheter tip was positioned within the right atrium. The ports demonstrated proper function with aspiration and flush of sterile saline. The catheter ports were flushed with sterile saline. The catheter was secured to the skin with 3-0 Ethilon suture. A sterile dressing was applied. There were no immediate complications. The patient tolerated the procedure well. The patient was transferred to the post procedure in stable unchanged condition further monitoring. CONCLUSION: Successful placement of a right internal jugular temporary central venous dialysis catheter utilizing ultrasound and fluoroscopic guidance. Dictated by: Quan Fu M.D. on 08/02/2017 at 11:42 Electronically approved by: Quan Fu M.D. on 08/02/2017 at 11:42 Dictated By : QUAN FU MD 1142 Transcribed By: KIRILL on 08/02/17 1142 COPY TO: SHANA MILES CHEST SINGLE (PORTABLE) [place] [address] Patient Name: NELSON AVILA MR #: [id number] : 1940 Age/Sex: 76/M Req #: [id number] Adm Physician: RODOLFO NY MD Ordered by: RODOLFO NY MD Report #: [id number] Location: MED/SURG3 Room/Bed: [facility] Procedure: [id number] DX/CHEST SINGLE (PORTABLE) Exam Date: 07/25/17 Exam Time: 1405 REPORT STATUS: Signed PROCEDURE: A single AP view of the chest. COMPARISON: None. INDICATIONS: ORTHO HYPOTENSION, DEHYDRATION FINDINGS: Lines/ tubes: None. Lungs: The lungs are well inflated and clear. There is no evidence of pneumonia or pulmonary edema. Pleura: There is no pleural effusion or pneumothorax. Heart and mediastinum: Normal heart size. Mild tortuosity of the thoracic aorta. Bones: No acute bony abnormality. IMPRESSION: 1. No acute cardiopulmonary disease. Dictated by : Vlad Nj M.D. on 07/25/2017 at 14:28 Electronically approved by : Vlad Nj M.D. on 07/25/2017 at 14:28 Dictated By: VLAD NJ MD 27 Transcribed By: KIRILL on 07/25/17 142 COPY TO: RODOLFO NY MD ABDOMEN-1VIEW (KUB) [place] [address] Patient Name: NELSON AVILA MR #: [id number] : 1940 Age/Sex: 76/M Req # : [id number] Adm Physician: RODOLFO NY MD Ordered by: RODOLFO NY MD Report #: [id number] Location: [facility] Room/Bed: [facility] _ Procedure: [id number] DX/ABDOMEN-1VIEW (KUB) Exam Date: 07/25/17 Exam Time: 1405 REPORT STATUS: Signed PROCEDURE: X- RAY ABDOMEN - KUB COMPARISON: None. INDICATIONS: DEHYDRATION, ORTHO HYPOTENSION FINDINGS: View the abdomen (AP supine). No dilated loops of bowel or abnormal air-fluid levels patterns. The transverse colon wall appears thickened. No definite calcifications are seen overlying the urinary system. Five non-rib bearing lumbar type vertebral bodies identified. CONCLUSION: The colon wall appears thickened. Correlate for evidence of colitis. No evidence of bowel obstruction. Dictated by: Vlad Nj M.D. on 07/25/2017 at 14:31 Electronically approved by: Vlad Nj M.D. on 07/25/2017 at 14:31 Dictated By: VLAD NJ MD 1431 Transcribed By: KIRILL on 07/25/17 1431 COPY TO: RODOLFO NY MD
--- OUTSIDE RECORDS SUMMARY | 2017-08-27 20:32 | XMS REPORT | Continuity of Care Document ---
Author Author [facility] Organization [facility] Address [address] [place] [address] Phone Unavailable Care Team Providers Care Rear Admiral Name Role Phone RODOLFO [place] MD PCP Insurance Providers Guarantor Nelson Avila Address [address] [place] [address] Email N/A Payer [employer] Medicare Replacement Policy Number [id number] Subscriber's Name Nelson Avila Relationship 18 Self / Same As Patient Group Number [id number] Group Name HMO PRIME Effective Date 15 Advance Directives Directive Response Recorded Date/Time Does the patient have an advance directive? No 07/25/17 1:15pm If yes, is advance directive on file with [facility]? No 07/25/17 1:15pm If not on file with [facility] will patient provide a copy? No 07/25/17 1:15pm Do you have a Directive to Physician? No 07/25/17 12:45pm Do you have a Medical Power of [employer] Pel[employer]? No 07/25/17 12:45pm Do you have an out of hospital Do Not Resuscitate Order? No 07/25/17 12:45pm Do you have any special needs we should be aware of? No 07/25/17 12:45pm Do you have a support person here with you today? No 07/25/17 12:45pm Did patient receive Notice of Privacy Practices? Yes 07/25/17 12:45pm Did patient receive patient rights and responsibilities? Yes 07/25/17 12:45pm Problems No problem information available. Medications Current Home Medications Medication Dose Units Route Directions Days Qty Instructions Start Date Atorvastatin Calcium 20 Mg Tablet 80 Mg Oral Bedtime 30 Tab Carvedilol (Coreg) 3.125 Mg Tab 3.125 Mg Oral Every 12 Hours Clopidogrel Bisulfate (Clopidogrel) 75 Mg Tablet 75 Mg Oral Daily Enalapril Maleate (Vasotec) 5 Mg Tablet 10 Mg Oral Daily Ferrous Sulfate 325 Mg Tablet 325 Mg Oral Daily Folic Acid 1 Mg Tablet 1 Mg Oral Daily 30 Tab Lactobacillus Acidophilus (Acidophilus) 1 Each Tab.chew 1 Tab Oral Every 12 Hours Losartan Potassium 100 Mg Tablet 100 Mg Oral Daily Metformin Hcl (Glucophage) 500 Mg Tablet 500 Mg Oral Twice A Day Pantoprazole Sodium (Protonix) 40 Mg Tablet.dr 40 Mg Oral Daily Silver Sulfadiazine (Silvadene) 20 Gm Cream..g. 1 Applic Topically Daily Past Home Medications Medication Directions Ordered Status Aspirin (Asa) 81 Mg Tab, 325 Mg Oral Daily Discontinued Aspirin (Asa) 81 Mg Tab, 81 Mg Oral Daily Discontinued Carvedilol (Coreg) 6.25 Mg Tablet, 6.25 Mg Oral Twice A Day Discontinued Glimepiride (Amaryl) 2 Mg Tablet, 2 Mg Oral Twice A Day Discontinued Pravastatin Sodium (Pravachol) 20 Mg Tablet, 20 Mg Oral Daily Discontinued Social History Social History Problem Response Recorded Date/Time Onset Date Status Hx Psychiatric Problems No 07/25/2017 1:15pm Not Applicable Not Applicable Smoking Status Start Date Stop Date Former smoker Hospital Discharge Instructions No hospital discharge instruction information available. Plan of Care Discharge Date 08/22/17 3:56pm Disposition [facility] ([facility] Prescriptions See Medication Section Functional Status Query Response Date Recorded FUNCTIONAL STATUS . August 20, 2017 12:48pm Assistive Devices None July 25, 2017 1:15pm Ambulation Ability Independent July 25, 2017 1:15pm Toileting Ability Total Assistance August 22, 2017 3:22pm Allergies, Adverse Reactions, Alerts Allergen Type Severity Reaction Status Last Updated Simvastatin Allergy Unknown Active 07/25/17 Lansoprazole Allergy Unknown Active 07/25/17 Immunizations No immunization information available. Vital Signs Acute Vital Signs Vital Response Date/Time Temperature (Fahrenheit) 97.9 degrees F (97.6 - 99.5) 08/22/2017 12:00pm Pulse Pulse Rate (adult) 92 bpm (60 - 90) 08/22/2017 12:00pm Respiratory Rate 20 bpm (12 - 24) 08/22/2017 12:00pm Blood Pressure 111/50 mm Hg 08/22/2017 12:00pm Height 5 ft 6 in 07/25/2017 1:15pm Weight 170.25 lb 08/17/2017 12:00am Body Mass Index 27.5 kg/m^2 08/17/2017 12:00am Results Laboratory Results Test Name Result Units Flags Reference Collection Date/Time Result Date/ Time Comments White Blood Count 9.51 x10e3/uL 4.8-10.8 08/22/2017 5:50am 08/22/2017 6 :20am Red Blood Count 3.03 x10e6/uL L 4.3-5.7 08/22/2017 5:50am 08/22/2017 6: 20am Hemoglobin 8.5 g/dL L 14.0-18.0 08/22/2017 5:50am 08/22/2017 6:20am Hematocrit 26.8 % L 38.2-49.6 08/22/2017 5:50am 08/22/2017 6:20am Mean Corpuscular Volume 88.4 fL 81-99 08/22/2017 5:50am 08/22/2017 6: 20am Mean Corpuscular Hemoglobin 28.1 pg 28-32 08/22/2017 5:50am 08/22/2017 6:20am Mean Corpuscular Hemoglobin Concent 31.7 g/dL 31-35 08/22/2017 5:50am 08/22/2017 6:20am Red Cell Distribution Width 16.0 % H 11.7-14.4 08/22/2017 5:50am 2017 6:20am Platelet Count 360 x10e3/uL 140-360 08/22/2017 5:50am 08/22/2017 6: 20am Neutrophils (%) (Auto) 70.5 % 38.7-80.0 08/22/2017 5:50am 08/22/2017 6: 20am Lymphocytes (%) (Auto) 18.2 % 18.0-39.1 08/22/2017 5:50am 08/22/2017 6: 20am Monocytes (%) (Auto) 9.7 % 4.4-11.3 08/22/2017 5:5008/22/2017 6: 20am Eosinophils (%) (Auto) 0.9 % 0.0-6.0 08/22/2017 5:5008/22/2017 6: 20am Basophils (%) (Auto) 0.3 % 0.0-1.0 08/22/2017 5:5008/22/2017 6:20am IM GRANULOCYTES % 0.4 % 0.0-1.0 08/22/2017 5:5008/22/2017 6:20am Neutrophils # (Auto) 6.7 2.1-6.9 08/22/2017 5:50am 08/22/2017 6:20am Lymphocytes # (Auto) 1.7 1.0-3.2 08/22/2017 5:5008/22/2017 6:20am Monocytes # (Auto) 0.9 H 0.2-0.8 08/22/2017 5:5008/22/2017 6:20am Eosinophils # (Auto) 0.1 0.0-0.4 08/22/2017 5:5008/22/2017 6:20am Basophils # (Auto) 0.0 0.0-0.1 08/22/2017 5:5008/22/2017 6:20am Absolute Immature Granulocyte (auto 0.04 x10e3/uL 0-0.1 08/22/2017 5: 5008/22/2017 6:20am Differential Total Cells Counted 100 08/04/2017 5:3008/04/2017 11:13am Neutrophils % (Manual) 78 % H 40-74 08/04/2017 5:3008/04/2017 11: 13am Band Neutrophils % 8 % 08/04/2017 5:3008/04/2017 11:13am Lymphocytes % (Manual) 9 % L 19-48 08/04/2017 5:30am 08/04/2017 11:13am Monocytes % (Manual) 3 % L 3.4-9.0 08/04/2017 5:30am 08/04/2017 11:13am Eosinophils % (Manual) 2 % 0-7 08/04/2017 5:30am 08/04/2017 11:13am Basophils % (Manual) 4 % H 0-1.5 07/28/2017 5:10am 07/30/2017 11:12am Metamyelocytes % 1 % H 0-0 07/31/2017 5:30am 07/31/2017 11:20am Myelocytes % 2 % H 0-0 07/31/2017 5:30am 07/31/2017 11:20am Promyelocytes % 1 % H 0-0 07/31/2017 5:30am 07/31/2017 11:20am Reactive Lymphocytes 9 07/28/2017 5:10am 07/30/2017 11:12am Smudge Cells FEW 07/30/2017 5:10am 07/30/2017 9:00am Nucleated Red Blood Cells 2 07/27/2017 6:40am 07/27/2017 8:09am Platelet Estimate ADEQUATE 08/04/2017 5:30am 08/04/2017 11:13am Platelet Morphology Comment NORMAL 08/04/2017 5:30am 08/04/2017 11: 13am Polychromasia FEW 07/26/2017 7:28am 07/26/2017 9:04am Hypochromasia SLIGHT 08/01/2017 5:15am 08/01/2017 7:26am Poikilocytosis SLIGHT 08/01/2017 5:15am 08/01/2017 7:26am Anisocytosis MODE 08/01/2017 5:15am 08/01/2017 7:26am Toxic Granulation SLIGHT 07/26/2017 7:28am 07/26/2017 9:04am Hugo Cells SLIGHT 07/31/2017 5:30am 07/31/2017 11:20am Crenated Cell SLIGHT 07/25/2017 1:40pm 07/25/2017 3:02pm Elliptocytes SLIGHT 08/01/2017 5:15am 08/01/2017 7:26am Acanthocytes FEW 08/01/2017 5:15am 08/01/2017 7:26am Schistocytes RARE 07/27/2017 6:40am 07/27/2017 8:09am Red Cell Morphology Comment NORMAL 08/04/2017 5:30am 08/04/2017 11: 13am Percent Reticulocyte Count 0.4 % L 0.8-2.2 08/08/2017 6:10am 08/08/2017 6:43am Prothrombin Time 19.5 seconds H 11.9-14.5 08/04/2017 2:00am 08/04/2017 2 :11am Prothromb Time International Ratio 1.79 08/04/2017 2:00am 2017 2:11am Oral Anticoagulant Therapy INR Values: 1. Low Intensity Therapy 1.5 - 2.0 2. Moderate Intensity Therapy 2.0 - 3.0 3. High Intensity Therapy(1) 2.5 - 3.5 4. High Intensity Therapy(2) 3.0 - 4.0 5. Panic Value INR > 5.0 Activated Partial Thromboplast Time 37.8 seconds H 23.8-35.5 08/04/2017 2 :00am 08/04/2017 2:11am VERIFIED PREVIOUS RESULTS Urine Color YELLOW YELLOW 2017 3:30am 2017 3:57am Urine Clarity SL CLOUDY H CLEAR 2017 3:30am 2017 3:57am Urine Specific Thornton 1.015 1.010-1.025 2017 3:30am 2017 3:57am Urine pH 5 5 - 7 2017 3:30am 2017 3:57am Urine Leukocyte Esterase 1+ H NEGATIVE 2017 3:30am 2017 3: 57am Urine Nitrite POSITIVE H NEGATIVE 2017 3:30am 2017 3:57am Urine Protein 1+ H NEGATIVE 2017 3:30am 2017 3:57am Urine Glucose (UA) NEGATIVE NEGATIVE 2017 3:30am 2017 3: 57am Urine Ketones NEGATIVE NEGATIVE 2017 3:30am 2017 3:57am Urine Urobilinogen 0.2 mg/dL 0.2 - 1 2017 3:30am 2017 3: 57am Urine Bilirubin NEGATIVE NEGATIVE 2017 3:30am 2017 3: 57am Urine Blood 4+ H NEGATIVE 2017 3:30am 2017 3:57am Urine WBC 21-50 /HPF H 0-5 2017 3:30am 2017 3:57am Urine RBC 0-5 /HPF 0-5 2017 3:30am 2017 3:57am Urine Bacteria MANY /HPF H NONE 2017 3:30am 2017 3:57am Urine Epithelial Cells FEW /LPF NONE 2017 3:30am 2017 3: 57am Sodium Level 137 mmol/L 136-145 08/22/2017 5:50am 08/22/2017 6:43am Potassium Level 3.9 mmol/L 3.5-5.1 08/22/2017 5:50am 08/22/2017 6:43am Chloride Level 96 mmol/L L 98-107 08/22/2017 5:50am 08/22/2017 6:43am Carbon Dioxide Level 37 mmol/L H 22-29 08/22/2017 5:50am 08/22/2017 6: 43am Anion Gap 7.9 mmol/L L 8-16 08/22/2017 5:50am 08/22/2017 6:43am Blood Urea Nitrogen 27 mg/dL H 7-26 08/22/2017 5:50am 08/22/2017 6:43am Creatinine 1.37 mg/dL H 0.72-1.25 08/22/2017 5:50am 08/22/2017 6:43am BUN/Creatinine Ratio 20 6-08/22/2017 5:50am 08/22/2017 6:43am Estimat Glomerular Filtration Rate 50 ML/MIN L 60- 08/22/2017 5:50am 6:43am Ranges were taken from the National Kidney Disease Education Program and the National Kid[employer] Foundation literature. Reference ranges: 60 or greater: Normal 16-59 (for 3 consecutive months): Chronic kidney disease 15 or less: Kidney failure Glucose Level 162 mg/dL H 74-118 08/22/2017 5:50am 08/22/2017 6:43am Calcium Level 7.9 mg/dL L 8.4-10.2 08/22/2017 5:50am 08/22/2017 6:43am Bedside Glucose 191 mg/dL H 70-120 08/22/2017 11:48am 08/22/2017 2:15pm Meter ID: [id number] Hemoglobin A1c Percent 6.2 % 4.0-7.0 08/03/2017 4:25pm 08/03/2017 5: 02pm Lactic Acid Level 17.7 MG/DL 4.5-19.8 07/26/2017 12:20pm 07/26/2017 12: 51pm Uric Acid 3.7 mg/dL L 4.8-8.0 08/10/2017 6:25am 08/10/2017 2:43pm Phosphorus Level 3.0 MG/DL 2.3-4.7 08/15/2017 6:00am 08/15/2017 7:43am Magnesium Level 2.1 MG/DL 1.3-2.1 08/15/2017 6:00am 08/15/2017 7:43am Iron Level < 5 ug/dL L 65-175 08/09/2017 6:02am 08/09/2017 7:09am Total Iron Binding Capacity 130 ug/dL L 261-478 08/09/2017 6:02am 2017 7:09am Percent Iron Saturation 4 % L 15-50 08/09/2017 6:02am 08/09/2017 7:09am Transferrin 93 mg/dL L 174-364 08/09/2017 6:02am 08/09/2017 7:09am Total Bilirubin 0.6 mg/dL 0.2-1.2 08/22/2017 5:50am 08/22/2017 6:43am Aspartate Amino Transf (AST/SGOT) 156 IU/L H 5-34 08/22/2017 5:50am 6:43am Alanine Aminotransferase (ALT/SGPT) 110 IU/L H 0-55 08/22/2017 5:50am 6:43am Total Protein 4.4 g/dL L 6.5-8.1 08/22/2017 5:50am 08/22/2017 6:43am Albumin 1.2 g/dL L 3.5-5.0 08/22/2017 5:50am 08/22/2017 6:43am Globulin 3.2 g/dL 2.3-3.5 08/22/2017 5:50am 08/22/2017 6:43am Albumin/Globulin Ratio 0.4 L 0.8-2.0 08/22/2017 5:50am 08/22/2017 6: 43am Alkaline Phosphatase 1008 IU/L H 40-150 08/22/2017 5:50am 08/22/2017 6: 43am Amylase Level 95 U/L 25-125 08/03/2017 3:00am 08/03/2017 3:36am Lipase 93 U/L H 8-78 08/03/2017 3:00am 08/03/2017 3:36am Vitamin B12 Level 1034 pg/mL H 213-816 08/09/2017 6:02am 08/09/2017 9: 20am Folate 14.8 ng/mL 7.0-15.4 08/09/2017 6:02am 08/09/2017 9:20am Free Thyroxine 0.73 ng/dL L 0.9-1.8 08/03/2017 4:25pm 08/03/2017 5:32pm Thyroid Stimulating Hormone (TSH) 1.449 uIU/mL 0.350-4.940 08/03/2017 4: 25pm 08/03/2017 5:32pm Arterial Blood pH 7.45 H 7.31-7.41 07/29/2017 8:55am 07/29/2017 9: 39am Arterial Blood Partial Pressure CO2 30 mmHg L 41-51 07/29/2017 8:55am 9:39am Arterial Blood Partial Pressure O2 67 mmHg L 80-105 07/29/2017 8:55am 9:39am Arterial Blood HCO3 21 mmol/L L 23-28 07/29/2017 8:55am 07/29/2017 9: 39am Arterial Blood Base Excess -3.0 mmol/L L -2 - 3 07/29/2017 8:55am 2017 9:39am Arterial Blood Oxygen Saturation 94.0 % L 95-98 07/29/2017 8:55am 2017 9:39am FiO2 40 % 07/29/2017 8:55am 07/29/2017 9:39am PT ON VENT CPAP 07/28/39 % Hepatitis B Surface Antibody, Quant <3.1 mIU/mL L Immunity>9.9 2017 5:19pm 07/29/2017 5:44am Status of Immunity Anti- HBs Level Inconsistent with Immunity 0.0 - 9.9 Consistent with Immunity >9.9 Hepatitis B Core Total Antibody Negative Negative 07/26/2017 5:19pm 07/29/2017 5:44am Performed at: - [facility] [address] [id number] Bpm Architect: Teo Lee MD, Phone: [phone] Heparin-Induced Platelet Antibody 0.114 OD 0.000-0.400 07/30/2017 5: 10am 08/01/2017 7:01pm Performed at: - [facility] [id number] Bpm Architect: Brannon Delatorre MD, Phone: [phone] Hepatitis B Surface Antigen Negative Negative 07/26/2017 5:19pm 07/29 5:44am Stool Occult Blood POSITIVE H NEGATIVE 08/04/2017 11:20pm 08/05/2017 5 :35am Clostridium Difficile Toxin A & B POSITIVE H NEGATIVE 08/20/2017 6: 20pm 08/20/2017 9:49pm Results called to LINDA JAMES at 2146 on 08/20/17 by SUSAN AGUILAR. RB OK. Results LEFT MSG TO [facility] in infection control at 2146 on 08/20/17 by SUSAN AGUILAR. Testing on stool aspirate specimens is outside agility instructor claims since specimen type not validated on this assay. Microbiology Results Procedure Source Organism/Result Collection Date/Time Result Date/Time Result Status Blood Culture Blood NO GROWTH AFTER 5 DAYS, FINAL REPORT 08/03/2017 11: 40am 08/08/2017 11:54am Final Urine Culture Urine,Felix [place] ESCHERICHIA COLI 2017 3:30am 2017 5:50am Final Procedures Procedure Status Date Provider(s) Exploratory laparotomy Completed 07/28/17 VAIBHAV JARA MD Creation of arteriovenous fistula Completed 08/13/17 VAIBHAV BRIGHT MD Ultrasound guidance for vascular access Active 07/26/17 SHANA MILES Ultrasound, renal Active 07/26/17 SHANA MILES Ultrasound guidance for vascular access Active 07/27/[address] of abdomen and pelvis without contrast Active 07/27/17 SHANA MILES X-ray of chest, two views Active 08/12/17 SHANA MILES Testicular ultrasound Active 08/18/17 TOÑA GREEN MD Dup-scan artl andrey abdl/pel/scrot&/RPR orgn lmt Active 08/18/17 TOÑA GREEN MD US abdomen complete Active 08/21/17 RODOLFO [place] MD Encounters Encounter Location Arrival/Admit Date Discharge/Depart Date Attending Provider Discharged Inpatient [facility] 07/26/17 1:00pm 08/22/17 3:56pm RODOLFO [place] MD
[2017-08-27 21:05] LABS: BASOPHILS % 0.4 % (0.0-1.0); EOSINOPHILS # (AUTO) 0.1 (0.0-0.4); EOSINOPHILS % 0.8 % (0.0-6.0); HEMATOCRIT 25.6 % (38.2-49.6); HEMOGLOBIN 7.9 g/dL (14.0-18.0); LYMPHOCYTES # (AUTO) 1.6 (1.0-3.2); LYMPHOCYTES % 19.8 % (18.0-39.1); MEAN CORPUSCULAR HEMOGLOBIN 27.7 pg (28-32); MEAN CORPUSCULAR HGB CONC 30.9 g/dL (31-35); MEAN CORPUSCULAR VOLUME 89.8 fL (81-99); MONOCYTES # (AUTO) 0.9 (0.2-0.8); MONOCYTES % 10.9 % (4.4-11.3); NEUTROPHILS # (AUTO) 5.3 (2.1-6.9); NEUTROPHILS % 67.3 % (38.7-80.0); PLATELET COUNT 496 x10e3/uL (140-360); RED BLOOD COUNT 2.85 x10e6/uL (4.3-5.7)
[2017-08-27 21:14] LABS: INR 1.66; PROTHROMBIN TIME 18.4 seconds (11.9-14.5)
[2017-08-27 21:15] LABS: PARTIAL THROMBOPLASTIN TIME 46.2 seconds (23.8-35.5)
[2017-08-27 21:22] LABS: ALBUMIN 1.3 g/dL (3.5-5.0); ALBUMIN/GLOBULIN RATIO 0.4 (0.8-2.0); ANION GAP 11.9 mmol/L (8-16); CALCIUM 8.2 mg/dL (8.4-10.2); CREATININE, SERUM 1.36 mg/dL (0.72-1.25); POTASSIUM 3.9 mmol/L (3.5-5.1)
[2017-08-27 21:43] LABS: CREATINE KINASE MB 2.1 ng/mL (0-5.0)
--- NOTE | 2017-08-27 21:54 | Diagnostic Imaging Report ---
EXAMINATION: CHEST SINGLE (PORTABLE) INDICATION: Shortness of breath COMPARISON: 08/12/2017 FINDINGS: TUBES and LINES: Right IJ central line catheter with tip overlying the major caval junction. LUNGS: Lungs are not well inflated. There are bilateral atelectasis. Interlobular septi thickening noted in the right hemithorax. The left hemithorax is predominantly opacified with compression by fluid. PLEURA: Bilateral pleural effusions left greater than right. HEART AND MEDIASTINUM: The cardiomediastinal silhouette is unremarkable. BONES AND SOFT TISSUES: No acute osseous lesion. Soft tissues are unremarkable. UPPER ABDOMEN: No free air under the diaphragm. IMPRESSION: Findings are compatible with pulmonary edema and pleural effusions left greater than right. Superimposed infection cannot be excluded. Signed by: Dr. Mark Herring M.D. on 08/27/2017 9:51 PM
[2017-08-27] MEDS ORDERED: FUROSEMIDE INJ 10 MG/ML 4 ML VIAL IV ONE (22:15)
[2017-08-27] MEDS ORDERED: SODIUM CHLORIDE FLUSH 10 ML SYR INJ PRN (22:45)
[2017-08-28] VITALS (88 sets, daily range): BP systolic 50–171; BP diastolic 28–83
[2017-08-28] MEDS ORDERED: CARVEDILOL 3.125 MG TAB PO SCH (06:30)
[2017-08-28] MEDS: ACETAMINOPHEN 325 MG TAB PO PRN (06:47)
[2017-08-28 07:17] LABS: CREATINE KINASE MB 2.3 ng/mL (0-5.0)
[2017-08-28] MEDS: FUROSEMIDE INJ 10 MG/ML 4 ML VIAL IV SCH ×2 (07:56→17:00)
[2017-08-28] MEDS ORDERED: SODIUM CHLORIDE 0.9% 1000ML 1,000 ML ONE ×2 (08:00→16:40)
[2017-08-28] MEDS ORDERED: PHENYLEPHRINE 10MG/ML VIAL 40 MG in DEXTROSE 5% 250ML 246 ML IV PRN (08:15)
[2017-08-28] MEDS ORDERED: PIPER-TAZ 3.375 GM 50 ML IV ONE (08:30)
--- NOTE | 2017-08-28 08:31 | Diagnostic Imaging Report ---
This report includes an Addendum and supersedes previous reports for this exam. PROCEDURE:CHEST SINGLE (PORTABLE) TECHNIQUE:Portable AP chest INDICATION:Intubation COMPARISON:[facility], DX, CHEST SINGLE (PORTABLE), 08/27/2017, 20:56. FINDINGS: See conclusion. CONCLUSION: 1. Right internal jugular central venous catheter tip in the high right atrium. 2. Moderate to large left pleural effusion with adjacent airspace opacity consistent with atelectasis and/or pneumonia. Findings unchanged from August 27. 3. Small right pleural effusion with accompanying airspace opacity. Findings unchanged. 4. Stable cardiomediastinal silhouette. Heart size at the upper limits of normal. 5. Stable prominent central vasculature and vascular pedicle consistent with vascular congestion. Dictated by: Abad Delatorre M.D. on 08/28/2017 at 8:34 Electronically approved by: Abad Delatorre M.D. on 08/28/2017 at 8:34 ADDENDUM: No conspicuous endotracheal tube. Dictated by: Abad Delatorre M.D. on 08/28/2017 at 8:37 Electronically approved by: Abad Delatorre M.D. on 08/28/2017 at 8:37
[2017-08-28] MEDS ORDERED: SODIUM CHLORIDE 0.9% 500ML 500 ML IV ONE (08:45)
[2017-08-28] MEDS: HEPARIN SOD (PORCINE) 5,000 UNIT/ML VIAL SC SCH ×2 (08:52→21:37)
[2017-08-28] MEDS ORDERED: VASOPRESSIN 100 UNIT in DEXTROSE 5% 100ML 100 ML IV PRN (09:00)
--- NOTE | 2017-08-28 09:11 | Diagnostic Imaging Report ---
PROCEDURE:CHEST SINGLE (PORTABLE) TECHNIQUE:Portable AP chest INDICATION:Intubation COMPARISON:Patients [facility], , CHEST SINGLE (PORTABLE), 08/28/2017, 8:19. FINDINGS: See conclusion. CONCLUSION: 1. Endotracheal tube tip about 2.3 cm from the roger. 2. Right internal jugular central venous catheter tip at the atrial caval junction. 3. Bilateral pleural effusions (left large, right moderate) with adjacent airspace opacities consistent with atelectasis with or without pneumonia. 4. Central vascular congestion. Normal heart size. Dictated by: Aabd Delatorre M.D. on 08/28/2017 at 9:11 Electronically approved by: Abad Delatorre M.D. on 08/28/2017 at 9:11
[2017-08-28] MEDS: LACTOBACILLUS ACIDOPHILUS CAPSULE PO SCH ×2 (09:15→21:10)
[2017-08-28] MEDS ORDERED: VANCOMYCIN 1GM/NS 250 ML 250 ML IV ONE (09:15)
[2017-08-28 09:23] LABS: BASOPHILS # (AUTO) 0.1 (0.0-0.1); BASOPHILS % 0.5 % (0.0-1.0); EOSINOPHILS # (AUTO) 0.1 (0.0-0.4); EOSINOPHILS % 0.6 % (0.0-6.0); HEMATOCRIT 29.7 % (38.2-49.6); HEMOGLOBIN 9.2 g/dL (14.0-18.0); LYMPHOCYTES % 9.2 % (18.0-39.1); MEAN CORPUSCULAR VOLUME 90.5 fL (81-99); MONOCYTES # (AUTO) 0.4 (0.2-0.8); MONOCYTES % 3.6 % (4.4-11.3); NEUTROPHILS # (AUTO) 9.4 (2.1-6.9); PLATELET COUNT 622 x10e3/uL (140-360); RED BLOOD COUNT 3.28 x10e6/uL (4.3-5.7); RED CELL DISTRIBUTION WIDTH 15.9 % (11.7-14.4)
[2017-08-28 09:30] LABS: ANION GAP 14.9 mmol/L (8-16); CALCIUM 8.6 mg/dL (8.4-10.2); CREATININE, SERUM 1.33 mg/dL (0.72-1.25); POTASSIUM 3.9 mmol/L (3.5-5.1)
[2017-08-28] MEDS: CEFEPIME HCL 1 GM VIAL IV SCH ×2 (09:30→21:37)
[2017-08-28] MEDS: FAMOTIDINE 20 MG/2 ML VIAL IV SCH ×2 (09:30→17:00)
[2017-08-28 09:43] LABS: ABG PCO2 48 mmHg (41-51)
[2017-08-28 09:44] LABS: ABG HCO3 30 mmol/L (23-28); ABG PO2 58 mmHg (80-105)
--- NOTE | 2017-08-28 09:55 | Consultation ---
DATE OF CONSULTATION: PULMONARY CONSULTATION Patient of Dr. Alvarez, Dr. Mittal. An unfortunate 77-year-old gentleman with a history of recent severe C. diff colitis and multiorgan system failure requiring colectomy and ileostomy. He was admitted with apparent pneumonia, hypoxia and anxiety. According to the son, he had [facility]. He is a chronically ill thin white male post arrest. We are asked to see the patient by the nurse and Dr. Tavares Avalos. He is an extremis on pressors. PHYSICAL EXAMINATION VITALS: Temperature 100.3, pulse 82, respirations 20, blood pressure 100 on multiple pressors. GENERAL: He is somewhat cachectic. LUNGS: Diminished breath sounds. HEART: Regular rhythm. ABDOMEN: Ileostomy. Midline surgical scar. EXTREMITIES: Not edematous. IMPRESSION 1. Sepsis. 2. Bilateral pneumonia. 3. Possible recurrent sepsis. Family has requested DNR status. Will consider withdrawal after they have seen him. Prognosis is extremely poor. ET tube on first x-ray was not obvious, but is obviously now in good position, as well as the central line. Thank you for this kind referral. Job#: [id number] [place]
--- NOTE | 2017-08-28 10:07 | History and Physical ---
He is a 77-year-old male patient of mine who was transferred from [facility] with shortness of breath and hypoxia. HISTORY OF PRESENT ILLNESS: Mr. Guanakito Dill is a 77-year-old male patient who has unfortunately a very complex medical history, which started with multiple dog bites. The patient had severe wounds. The patient developed C. diff. The patient has history of C. diff colitis and sepsis, which required a total colectomy. He had renal failure and prolonged hospitalization course. The patient had poor nutrition and severe malnutrition. The patient was advised to have a PEG tube, but the patient declined. The patient was transferred to [facility]. The patient had improved nicely with good nutrition at the [facility]. Yesterday, the patient became short of breath. The patient was hypoxic, so the patient was sent to the hospital. ALLERGIES: SIMVASTATIN AND LANSOPRAZOLE. MEDICATIONS: The patient is on vancomycin and mirtazapine. PAST MEDICAL HISTORY: Diabetes mellitus, hypertension, coronary artery disease. PAST SURGICAL HISTORY: Angioplasty, angiogram, cholecystectomy SOCIAL HISTORY: Denies smoking. Denies using alcohol. REVIEW OF SYSTEMS: The patient is orally intubated and cannot participate in a review of systems. PHYSICAL EXAMINATION GENERAL: He is an elderly, very ill-appearing, male patient lying in bed. He is orally intubated. He moves all extremities. VITALS: Temperature 100.3, pulse rate 87, blood pressure 90/60, respirations 30, O2 sat 99% on mechanical ventilation. HEENT: Normocephalic, atraumatic. NECK: No JVD. No lymphadenopathy. HEART: S1 and S2, regular. Systolic murmur is present. ABDOMEN: Soft. Bowel sounds are present. Right ileostomy. NEUROLOGIC: The patient is orally intubated. No focal deficits. EXTREMITIES: No clubbing. ADMISSION IMPRESSION AND DIAGNOSES 1. Respiratory failure, status post cardiac arrest. 2. Congestive heart failure. 3. Possible sepsis. 4. Recent Clostridium difficile colitis. 5. Severe malnutrition. 6. Currently he is in [id number] renal failure. 7. Diabetes mellitus. 8. Hypertension. 9. Severe debilitation. PLAN: The patient will be admitted. The patient is orally intubated and on mechanical ventilation. The family had requested DNR as prior to discharge the patient had signed DNR. The family decided on withdrawing the ventilator. The patient will be given IV antibiotic. Will obtain pulmonary, ID, GI and cardiology consultations. Further care will be determined as per the family's request. The patient has a poor prognosis. Job#: [id number]
[2017-08-28] MEDS ORDERED: DEXTROSE 5%/0.9% SOD CHL 1,000 ML IV SCH (10:45)
[2017-08-28] MEDS ORDERED: DEXTROSE 50% SYRINGE 50 ML IV PRN (10:45)
[2017-08-28] MEDS: INSULIN LISPRO 100 UNIT/1 ML 3ML VIAL SQ SCH ×3 (11:30→21:49)
[2017-08-28] MEDS: VANCOMYCIN 250MG/5ML ORAL SOLN PO SCH ×3 (12:00→23:05)
[2017-08-28] MEDS: METRONIDAZOLE 500MG/NS 100ML 100 ML IV SCH ×2 (14:00→21:37)
[2017-08-28] MEDS ORDERED: VANCOMYCIN 1GM/NS 250 ML 250 ML IV SCH (14:15)
[2017-08-28 15:20] LABS: CREATINE KINASE MB 4.9 ng/mL (0-5.0)
[2017-08-28] MEDS: DEXTROSE 5% 1,000 ML IV SCH (16:59)
[2017-08-28] MEDS ORDERED: ASPIRIN 81 MG CHEW TAB PO ONE (17:30)
--- NOTE | 2017-08-28 17:47 | Consultation ---
DATE OF CONSULTATION: August 28, 2017 HISTORY OF PRESENT ILLNESS: The patient is currently intubated. He grimaces when you examine him. He does move his extremities. He does not follow commands. Unable to get review of systems. The patient is status post cardiac arrest, status post CPR. He is currently on 2 pressors, and dopamine. Orally intubated. [facility] Felix [facility]. He is a 77-year-old gentleman who was transferred from [facility] with respiratory distress. He has a history of multiple dog bites, recent C. diff. colitis, prior history of diabetes, hypertension, coronary artery disease, CKD, history of prior cholecystectomy, peripheral vascular disease, and coronary artery disease. ALLERGIES: SIMVASTATIN AND LANSOPRAZOLE. CURRENT MEDICATIONS: Patient is on D5 NS at 125 mL an hour. On dopamine, metronidazole 500 mg IV q.8 h. He received normal saline 1 liter IV bolus. He also received 3.375 grams IV times 1. Received vancomycin 1 gram IV times 1. Is on carvedilol 3.125 IV q.12. He is on cefepime 1 gram IV piggyback q.12. He is on famotidine 20 mg IV b.i.d. Ferrous sulfate. Folic acid. For dose schedule and details please see MAR. CURRENT LABS: White count is 11.0 with a hemoglobin 9.2. Sodium 145. Potassium 3.9. Bicarbonate 32. Creatinine 1.33. BNP 521. Last troponin I 1.926. Most recent chest x-ray please see official report. What I can see is a significant right-sided pleural effusion, possible layering of bilateral pleural effusion, left more than right. Increased vascular markings, right lung field. PHYSICAL EXAMINATION: GENERAL: The patient is laying supine. VITALS: Blood pressure of 117/69 with a pulse rate 117. Oxygen saturation 100%. Patient orally intubated. He grimaces and opens eyes momentarily SKIN: Appears dry with poor turgor. NECK: Neck veins not distended. LUNGS: Harsh vesicular breath sounds. Decreased air entry, left lower zone more than right. HEART: S1 and S2 audible. ABDOMEN: Otherwise soft and nontender. Has a colostomy bag present, and he has stool present in the colostomy bag. LOWER EXTREMITY EXAMINATION: Shows no edema. IMPRESSION AND PLAN: Hypertension, shock, status post cardiorespiratory arrest, multiple comorbids, currently on pressors, [id number] kidney injury, underlying acute tubular necrosis. Will discontinue the existing D5 NS and carvedilol at this point in time. The patient will receive 2 liters of normal saline bolus. Will start D5 water at 70 mL an hour. Stat kidney ultrasound. Will have the nurse replace Felix catheter. Strict intake and output. Overall prognosis is poor. Job#: [id number]
[2017-08-28] MEDS ORDERED: DEXTROSE 5% 100ML 100 ML IV ONE (18:02)
--- NOTE | 2017-08-28 18:44 | Consultation ---
DATE OF CONSULTATION: August 28, 2017 REQUESTING PHYSICIAN: Dr. Daryl Avalos. REASON FOR CONSULTATION: CHF. HISTORY OF PRESENT ILLNESS: Mr. Dill is a 77-year-old gentleman with past medical history as listed below, who was recently discharged from the hospital to a [facility] facility. Reports he became short of breath yesterday and was sent back to the hospital. He had pneumonia and was being treated in the floor. Today, patient reportedly had more shortness of breath. Code was called. Patient had to be intubated. He is currently in the ICU. We were informed of the consult this evening. Patient is currently on a vent. His power of business attorney is at the bedside. He states he has had some difficulty swallowing, has not been eating well. Patient had declined PEG tube during his last admission. He had undergone colectomy. Currently, patient is on a vent restraint. He is awake. He wants the ET tube out. REVIEW OF SYMPTOMS: Not obtainable from the patient. His social insurance analyst states that patient was short of breath and had difficulty swallowing and has not been eating well. ALLERGIES: SIMVASTATIN AND LANSOPRAZOLE. MEDICATIONS: See list. PAST MEDICAL HISTORY: 1. History of CAD. 2. History of hypertension. 3. History of diabetes mellitus. 4. History of CHF. 5. History of anemia. 6. History of depression. 7. History of GERD. 8. History of C. diff. PAST SURGICAL HISTORY: 1. History of colectomy, ileostomy. 2. History of PCI. 3. History of cholecystectomy. SOCIAL HISTORY: Does not smoke or drink. Patient was discharged to [facility]. FAMILY HISTORY: Noncontributory. PHYSICAL EXAMINATION: GENERAL: A thin-built gentleman, who is awake, alert. Gestures that his ET tube be taken out. VITALS: Heart rate is 122, blood pressure 124/79. HEENT: Atraumatic, orotracheal tube in place. NECK: No JVD, bruit, thyromegaly or lymphadenopathy. CARDIOVASCULAR: First and 2nd heart sounds heard. No murmurs, rubs or gallops appreciated. CHEST: Decreased air entry at the bases. No adventitious sounds appreciated. ABDOMEN: Soft, nontender. Right ileostomy. EXTREMITIES: No edema. LABORATORY DATA: EKG shows sinus rhythm at 92 beats per minute, leftward axis, left bundle branch block with secondary ST-T changes. Chest x-ray shows bilateral pleural effusions, left large, right moderately central vascular congestion. WBC is 11.0, hemoglobin is 9.2, hematocrit 29.7, platelets are 622,000. Sodium is 145, potassium 3.9, chloride is 102, bicarb is 22, BUN is 27, creatinine is 1.3. Troponin is 1.9. BNP is 521. Total bilirubin 0.8, AST is 54, ALT is 56, alk phos 1348. IMPRESSION: 1. Respiratory failure. 2. Congestive heart failure. 3. Elevated troponin. 4. History of coronary artery disease with percutaneous coronary intervention. 5. History of hypertension. 6. History of diabetes mellitus. 7. Debility. 8. History of colectomy and ileostomy. 9. History of renal insufficiency. PLAN: 1. Patient is currently intubated on a vent. 2. He is on pressors. Gradually taper and discontinue pressors. 3. Once his blood pressure is stable, will start him on IV diuretics. 4. Add aspirin to his regimen. 5. Patient is currently on antibiotics. 6. Patient gestures that he wants to be extubated. Extubation as per pulmonary. 7. Further cardiac workup depending on clinical course. 8. Discussed my impression, plan of management with family. As always, I appreciate and thank you very much for your referrals. Job#: [id number] AVNI
[2017-08-28 18:45] LABS: ABG HCO3 32 mmol/L (23-28); ABG PCO2 43 mmHg (41-51); ABG PH 7.48 (7.31-7.41); ABG PO2 65 mmHg (80-105)
--- NOTE | 2017-08-28 21:48 | Consultation ---
DATE OF CONSULTATION: August 28, 2017 ATTENDING PHYSICIAN: Dr. Daryl Avalos REASON FOR CONSULTATION: Sepsis. Thank you Dr. Avalos for asking me to see this patient. HISTORY: The patient is a 77-year-old man referred for sepsis. He was admitted through the emergency department with decompensated systolic congestive heart failure. He was sent to the emergency department from a [facility] with shortness of breath and low oxygenation. No fever or cough was noted prior to admission. Several hours after admission to the intermediate medical care unit, the patient developed cardiopulmonary arrest, but responded to resuscitation. The patient was discharged to inpatient rehabilitation after long admission for septic shock with multiple system organ failure due to severe C. difficile colitis. He required total colectomy with ileostomy during that admission. The patient is currently intubated, but nods appropriately and makes appropriate hand gestures to my questions. PAST MEDICAL HISTORY: Diabetes mellitus type 2, hypertension, hyperlipidemia, coronary artery disease, chronic kidney disease stage 3, peripheral arterial disease, hypothyroidism, and gastroesophageal reflux disease. PAST SURGICAL HISTORY: Cholecystectomy and recent total colectomy for severe C. difficile colitis. ALLERGIES: PREVACID AND ? ZOCOR. MEDICATIONS: The current antibiotics are: 1. Cefepime 1 g IV piggyback q.12h. 2. Metronidazole 500 mg IV piggyback q.8h. 3. Vancomycin 250 mg p.o. q.6h. was ordered, but patient is currently not taking anything by mouth due to intubation. He received vancomycin 1 g IV piggyback and Zosyn 3.375 g IV piggyback once in the emergency room. IMMUNIZATIONS: He received pneumococcal vaccination in the past. Also, he received tetanus diphtheria vaccine. FAMILY HISTORY: Significant for diabetes mellitus in the mother and the father. SOCIAL HISTORY: No tobacco use. REVIEW OF SYSTEMS: As per history of present illness. The patient has had low-grade fevers since resuscitation. PHYSICAL EXAMINATION: GENERAL: Respiratory support. VITAL SIGNS: T-max 100.3, pulse 105, respiratory rate 18, blood pressure 106/60. Weight 170 pounds. HEENT: Normocephalic. There is no icterus or injection of conjunctivae. There is no ear or nasal discharge. Orally intubated. NECK: Supple. No lymphadenopathy. LUNGS: Decreased breath sounds bilaterally. HEART: Normal S1 and S2. Tachycardic. ABDOMEN: The ileostomy is functioning. Soft without tenderness. EXTREMITIES: There is plus edema of the upper and lower extremities bilaterally. The right leg wound has healed. The dorsalis pedis and posterior tibial pulses are weak to palpation in both feet. SKIN: There is no acute erythema. REFORMATORY ATTENDANT: Awake, alert, and oriented to person, place, and time. Nonfocal. LABORATORY AND DIAGNOSTICS: WBC 11,080; hemoglobin 9.2; platelets 622,000; neutrophils 85; lymphs 9.2; mono 3.6; eosinophil 0.6, basophil 0.5. BUN 27, creatinine 1.33. Troponin 1.926 post chest compression. Blood culture is pending. Sputum culture is also pending. Chest x-ray showed bilateral pleural effusions, large left and moderate right with adjacent airspace opacities. IMPRESSION: 1. Sepsis. 2. Hospital-acquired pneumonia. 3. Bilateral pleural effusions. 4. Clostridium difficile colitis. 5. Acute kidney injury on chronic kidney disease. 6. Acute respiratory failure. 7. Coronary artery disease. 8. Hypothyroidism. PLAN: 1. Check culture results. Procalcitonin level cannot be done in a timely manner here. The test is usually sent out and takes more than a week to come back which makes testing not useful. 2. Cardiology and pulmonary input noted. Thank you. Job#: [id number]
[2017-08-29] VITALS (98 sets, daily range): BP systolic 44–124; BP diastolic 29–82
[2017-08-29] MEDS: ACETAMINOPHEN 325 MG TAB PO PRN ×2 (01:28→18:26)
[2017-08-29] MEDS: VANCOMYCIN 250MG/5ML ORAL SOLN PO SCH ×4 (05:34→23:12)
[2017-08-29] MEDS: METRONIDAZOLE 500MG/NS 100ML 100 ML IV SCH ×3 (05:48→21:27)
--- NOTE | 2017-08-29 05:50 | Diagnostic Imaging Report ---
EXAMINATION: CHEST SINGLE (PORTABLE) INDICATION: Intubation COMPARISON: 08/28/2017 FINDINGS: TUBES and LINES: Right IJ central line catheter with tip overlying the atrial caval junction. No evidence of endotracheal tube. LUNGS: Lungs are not well inflated. There are bilateral atelectasis. Interlobular septi thickening noted in the right hemithorax. The left hemithorax is predominantly opacified with compression by fluid. PLEURA: Bilateral pleural effusions left greater than right. HEART AND MEDIASTINUM: The cardiomediastinal silhouette is unremarkable. BONES AND SOFT TISSUES: No acute osseous lesion. Soft tissues are unremarkable. UPPER ABDOMEN: No free air under the diaphragm. IMPRESSION: Findings are stable, compatible with pulmonary edema and pleural effusions left greater than right. Superimposed infection cannot be excluded. Signed by: Dr. Mark Herring M.D. on 08/29/2017 5:46 AM
[2017-08-29 06:55] LABS: INR 1.75; PROTHROMBIN TIME 19.2 seconds (11.9-14.5)
[2017-08-29 07:11] LABS: BASOPHILS % 0.2 % (0.0-1.0); EOSINOPHILS % 0.2 % (0.0-6.0); HEMATOCRIT 26.5 % (38.2-49.6); HEMOGLOBIN 8.2 g/dL (14.0-18.0); LYMPHOCYTES % 7.8 % (18.0-39.1); MEAN CORPUSCULAR HGB CONC 30.9 g/dL (31-35); MEAN CORPUSCULAR VOLUME 90.4 fL (81-99); MONOCYTES % 4.6 % (4.4-11.3); NEUTROPHILS % 84.9 % (38.7-80.0); PLATELET COUNT 479 x10e3/uL (140-360); RED BLOOD COUNT 2.93 x10e6/uL (4.3-5.7)
[2017-08-29 07:12] LABS: LYMPHOCYTES # (AUTO) 16.4 (1.0-3.2); NEUTROPHILS # (AUTO) 17.9 (2.1-6.9)
[2017-08-29 07:19] LABS: ALBUMIN 1.2 g/dL (3.5-5.0); ALBUMIN/GLOBULIN RATIO 0.3 (0.8-2.0); ANION GAP 10.6 mmol/L (8-16); CALCIUM 7.7 mg/dL (8.4-10.2); CREATININE, SERUM 1.53 mg/dL (0.72-1.25); POTASSIUM 3.6 mmol/L (3.5-5.1)
[2017-08-29] MEDS ORDERED: SODIUM CHLORIDE 0.9% 500ML 500 ML IV ONE (08:45)
[2017-08-29] MEDS: FAMOTIDINE 20 MG/2 ML VIAL IV SCH (09:00)
[2017-08-29] MEDS ORDERED: ASPIRIN 325 MG TAB PO SCH (09:00)
[2017-08-29] MEDS ORDERED: MAGNESIUM SULFATE 2GM/50ML 50 ML IV ONE (09:30)
[2017-08-29] MEDS: FUROSEMIDE INJ 10 MG/ML 4 ML VIAL IV SCH ×2 (10:13→18:25)
[2017-08-29] MEDS: FOLIC ACID 1 MG TAB PO SCH (10:13)
[2017-08-29] MEDS: ASPIRIN 81 MG CHEW TAB PO SCH (10:13)
[2017-08-29] MEDS: PANTOPRAZOLE SOD 40 MG TABEC PO SCH (10:13)
[2017-08-29] MEDS: FERROUS SULFATE 325 MG TAB PO SCH (10:13)
[2017-08-29] MEDS: HEPARIN SOD (PORCINE) 5,000 UNIT/ML VIAL SC SCH ×2 (10:14→20:27)
[2017-08-29] MEDS: SILVER SULFADIAZINE 400GM CREAM TOP SCH (10:15)
[2017-08-29] MEDS: LACTOBACILLUS ACIDOPHILUS CAPSULE PO SCH ×2 (10:15→20:39)
[2017-08-29] MEDS: INSULIN LISPRO 100 UNIT/1 ML 3ML VIAL SQ SCH ×5 (10:15→20:49)
[2017-08-29] MEDS: CEFEPIME HCL 1 GM VIAL IV SCH ×2 (10:15→20:39)
[2017-08-29] MEDS: DEXTROSE 5% 1,000 ML IV SCH ×2 (12:41→20:45)
[2017-08-29 13:29] LABS: CLARITY,URINE SL CLOUDY (CLEAR); COLOR,URINE YELLOW (YELLOW)
[2017-08-29 13:30] LABS: BILIRUBIN,URINE NEGATIVE (NEGATIVE); KETONES,URINE NEGATIVE (NEGATIVE); LEUKOCYTE ESTERASE ,URINE 1+ (NEGATIVE); NITRITE,URINE NEGATIVE (NEGATIVE); PROTEIN,URINE DIPSTICK NEGATIVE (NEGATIVE); URINE UROBILINOGEN 0.2 mg/dL (0.2 - 1)
[2017-08-29 13:42] LABS: AMORPHOUS SEDIMENT,URINE FEW (FEW); EPITHELIAL CELLS,URINE RARE /LPF; RBC,URINE 0-5 /HPF (0-5)
--- NOTE | 2017-08-29 15:29 | Diagnostic Imaging Report ---
PROCEDURE: A single AP view of the chest. COMPARISON: None. INDICATIONS: STATUS POST THORACENTESIS FINDINGS: See impression. IMPRESSION: 1. status post left thoracentesis with marked decrease in previously noted dural effusion. No pneumothorax is identified. 2. No interval change in right-sided pleural effusion and likely associated right lower lobe atelectasis. 3. Unchanged right-sided central line. 4. Cardiac silhouette is unremarkable. Vikash Zendejas M.D. Dictated by: Vikash Zendejas M.D. on 08/29/2017 at 15:32 Electronically approved by: Vikash Zendejas M.D. on 08/29/2017 at 15:32
[2017-08-29] MEDS ORDERED: ONDANSETRON HCL INJ 2 MG/ML VIAL IV PRN (22:30)
[2017-08-30] VITALS (122 sets, daily range): BP systolic 73–115; BP diastolic 46–66
[2017-08-30] MEDS: ACETAMINOPHEN 325 MG TAB PO PRN ×2 (02:04→06:25)
[2017-08-30] MEDS: METRONIDAZOLE 500MG/NS 100ML 100 ML IV SCH ×3 (05:10→21:49)
[2017-08-30] MEDS: VANCOMYCIN 250MG/5ML ORAL SOLN PO SCH ×3 (05:10→18:25)
[2017-08-30] MEDS ORDERED: ACETAMINOPHEN 325 MG TAB ONE (05:17)
[2017-08-30 06:14] LABS: BASOPHILS % 0.2 % (0.0-1.0); EOSINOPHILS # (AUTO) 0.1 (0.0-0.4); EOSINOPHILS % 0.6 % (0.0-6.0); HEMATOCRIT 27.2 % (38.2-49.6); HEMOGLOBIN 8.7 g/dL (14.0-18.0); LYMPHOCYTES % 11.4 % (18.0-39.1); MEAN CORPUSCULAR VOLUME 87.5 fL (81-99); MONOCYTES # (AUTO) 0.9 (0.2-0.8); MONOCYTES % 5.2 % (4.4-11.3); NEUTROPHILS # (AUTO) 14.2 (2.1-6.9); NEUTROPHILS % 81.7 % (38.7-80.0); PLATELET COUNT 522 x10e3/uL (140-360); RED BLOOD COUNT 3.11 x10e6/uL (4.3-5.7); RED CELL DISTRIBUTION WIDTH 15.9 % (11.7-14.4)
[2017-08-30 06:41] LABS: ALBUMIN 1.2 g/dL (3.5-5.0); ALBUMIN/GLOBULIN RATIO 0.4 (0.8-2.0); ANION GAP 8.1 mmol/L (8-16); CALCIUM 7.8 mg/dL (8.4-10.2); CREATININE, SERUM 1.46 mg/dL (0.72-1.25); POTASSIUM 3.1 mmol/L (3.5-5.1)
--- NOTE | 2017-08-30 07:00 | Diagnostic Imaging Report ---
PROCEDURE: ULTRASOUND GUIDED THORACENTESIS COMPARISON: Chest radiograph 08/29/2017 INDICATIONS:Pleural Effusion FINDINGS: After informed consent was obtained, the patient was placed in the right lateral decubitus position and preliminary ultrasound of the posterior chest identified a safe route into the left pleural effusion. The overlying skin was prepped and draped in usual sterile fashion. Lidocaine 1% was used for local anesthesia. Under ultrasound guidance, a 5 [place] Islander Yueh needle catheter was advanced into the pleural fluid, the catheter was advanced off the needle, and 1450 cc of blood-tinged fluid were aspirated. The catheter was removed and an occlusive dressing was applied after post procedure sonographic evaluation showed essentially complete evacuation of the effusion. The patient tolerated the procedure well and there were no immediate post-procedural complications. A post-thoracentesis chest radiograph will be obtained. CONCLUSION: Uncomplicated ultrasound-guided left thoracentesis with removal of 1450 cc blood-tinged fluid. Specimen was submitted for laboratory analysis as requested by the referring clinical team. Dictated by: Vishal Gonzalez M.D. on 08/30/2017 at 7:03 Electronically approved by: Vishal Gonzalez M.D. on 08/30/2017 at 7:03
[2017-08-30] MEDS ORDERED: POTASSIUM CHLORIDE 20 MEQ TAB CR PO STA (08:04)
[2017-08-30] MEDS ORDERED: MAGNESIUM SULFATE 2GM/50ML 50 ML IV ONE (08:15)
[2017-08-30] MEDS ORDERED: POTASSIUM CHLORIDE 20MEQ/100ML 200 ML IV ONE (08:15)
[2017-08-30] MEDS ORDERED: PHYTONADIONE 10 MG/ML AMP SC ONE (08:45)
[2017-08-30] MEDS: FUROSEMIDE INJ 10 MG/ML 4 ML VIAL IV SCH ×2 (08:46→18:25)
[2017-08-30] MEDS: FERROUS SULFATE 325 MG TAB PO SCH (08:46)
[2017-08-30] MEDS: PANTOPRAZOLE SOD 40 MG TABEC PO SCH (08:46)
[2017-08-30] MEDS: HEPARIN SOD (PORCINE) 5,000 UNIT/ML VIAL SC SCH ×3 (08:46→21:00)
[2017-08-30] MEDS: FOLIC ACID 1 MG TAB PO SCH (08:46)
[2017-08-30] MEDS: ASPIRIN 81 MG CHEW TAB PO SCH (08:46)
[2017-08-30] MEDS: CEFEPIME HCL 1 GM VIAL IV SCH ×2 (08:47→21:15)
[2017-08-30] MEDS: INSULIN LISPRO 100 UNIT/1 ML 3ML VIAL SQ SCH ×4 (08:47→21:00)
[2017-08-30] MEDS: LACTOBACILLUS ACIDOPHILUS CAPSULE PO SCH ×2 (08:47→21:15)
[2017-08-30] MEDS: SILVER SULFADIAZINE 400GM CREAM TOP SCH (09:00)
[2017-08-30 09:10] LABS: BODY FLUID APPEARANCE SL.CLOUDY; BODY FLUID COLOR RED; BODY FLUID TYPE PLEURAL
[2017-08-30 09:14] LABS: RBC,BODY FLUID 43065 cells/uL; WBC,BODY FLUID 2475 cells/uL
[2017-08-30 09:36] LABS: LYMPHOCYTES,BODY FLUID 22 %; MONO/MACROPHG,BODY FLUID 3 %; NEUTROPHILS,BODY FLUID 73 %; OTHER CELLS,BODY FLUID 2 %
[2017-08-30] MEDS ORDERED: LACTULOSE SYRUP 20 GM/30 ML UDC PO NR (10:00)
[2017-08-30] MEDS ORDERED: MORPHINE SULFATE 2 MG/ML SYR IV STA (13:33)
--- NOTE | 2017-08-30 15:32 | Diagnostic Imaging Report ---
PROCEDURE: CHEST XRAY POST PROCEDURE COMPARISON: 08/29/2017 INDICATIONS: POST THORACENTISIS CXR FINDINGS: LINES/TUBES: Right internal jugular central venous catheter has its tip at the cavoatrial junction. LUNGS: No consolidations or edema. PLEURA: Decreased size of right pleural effusion. Small left pleural effusion. There is a small right apical pneumothorax (about 10%) HEART \T\ MEDIASTINUM: The heart is unchanged. BONES \T\ SOFT TISSUES: No acute findings. CONCLUSION: Decreased size of right pleural effusion after thoracentesis. Small right apical pneumothorax. Recommend followup radiographs in a few hours to ensure stability or resolution. Findings discussed with Loretta, the patient's ICU nurse, at 3:30 pm on 08/30/17 Dictated by: Eliud Nj M.D. on 08/30/2017 at 15:36 Electronically approved by: Eliud Nj M.D. on 08/30/2017 at 15:36
[2017-08-30 15:35] LABS: BODY FLUID TYPE PLEURAL
[2017-08-30 15:36] LABS: BODY FLUID APPEARANCE CLOUDY; BODY FLUID COLOR YELLOW
[2017-08-30 15:49] LABS: RBC,BODY FLUID 281 cells/uL; WBC,BODY FLUID 300 cells/uL
[2017-08-30 16:33] LABS: LYMPHOCYTES,BODY FLUID 26 %; MONO/MACROPHG,BODY FLUID 3 %; NEUTROPHILS,BODY FLUID 71 %
[2017-08-30] MEDS: SODIUM CHLORIDE 0.9% 1000ML 1,000 ML IV SCH (18:45)
--- NOTE | 2017-08-30 19:12 | Diagnostic Imaging Report ---
EXAM: XR CHEST 1 VIEW DATE: 08/30/2017 4:32 PM INDICATION: COMPARISON: Same day 1450 FINDINGS: Lines and Tubes: Right IJ catheter with tip overlying cavoatrial junction. Heart and Mediastinum: Accentuated by low lung volumes. Lungs and Pleura: Pneumothorax on the right increased in size, now moderate. Asymmetric to left basilar atelectasis. Bones and Soft Tissues: No acute findings. IMPRESSION: 1. Increase in size of now moderate right pneumothorax. 2. Asymmetric to the left basilar opacities could represent atelectasis, with infectious process not excluded. 3. Findings discussed with nurse Amirah at 1908 on 08.30.17. Signed by: Dr. Malcolm Toribio MD on 08/30/2017 7:09 PM
[2017-08-31] VITALS (84 sets, daily range): BP systolic 86–124; BP diastolic 40–69
[2017-08-31] MEDS: SODIUM CHLORIDE 0.9% 1000ML 1,000 ML IV SCH (05:00)
[2017-08-31 05:34] LABS: BASOPHILS % 0.3 % (0.0-1.0); EOSINOPHILS # (AUTO) 0.1 (0.0-0.4); HEMATOCRIT 23.9 % (38.2-49.6); HEMOGLOBIN 7.5 g/dL (14.0-18.0); LYMPHOCYTES # (AUTO) 1.9 (1.0-3.2); LYMPHOCYTES % 16.2 % (18.0-39.1); MEAN CORPUSCULAR HEMOGLOBIN 27.6 pg (28-32); MEAN CORPUSCULAR HGB CONC 31.4 g/dL (31-35); MEAN CORPUSCULAR VOLUME 87.9 fL (81-99); MONOCYTES # (AUTO) 0.6 (0.2-0.8); MONOCYTES % 5.2 % (4.4-11.3); NEUTROPHILS # (AUTO) 8.8 (2.1-6.9); NEUTROPHILS % 76.1 % (38.7-80.0); PLATELET COUNT 449 x10e3/uL (140-360); RED BLOOD COUNT 2.72 x10e6/uL (4.3-5.7); RED CELL DISTRIBUTION WIDTH 15.9 % (11.7-14.4)
--- NOTE | 2017-08-31 05:53 | Diagnostic Imaging Report ---
EXAMINATION: CHEST SINGLE (PORTABLE) INDICATION: Pneumothorax. COMPARISON: Chest x-ray on 08/30/2017 FINDINGS: TUBES and LINES: Right IJ central line catheter with tip overlying the atriocaval junction.. LUNGS: Lungs are not well inflated. There are bibasilar atelectasis. There is mild prominence of the central pulmonary vasculature, consistent with pulmonary venous congestion. PLEURA: Interval decrease in volume of right pneumothorax. HEART AND MEDIASTINUM: The cardiomediastinal silhouette is unremarkable. BONES AND SOFT TISSUES: No acute osseous lesion. Soft tissues are unremarkable. UPPER ABDOMEN: No free air under the diaphragm. IMPRESSION: No acute thoracic abnormality. Signed by: Dr. Mark Herring M.D. on 08/31/2017 5:50 AM
[2017-08-31 05:56] LABS: ALBUMIN 1.1 g/dL (3.5-5.0); ALBUMIN/GLOBULIN RATIO 0.4 (0.8-2.0); ANION GAP 9.4 mmol/L (8-16); CREATININE, SERUM 1.3 mg/dL (0.72-1.25); POTASSIUM 3.4 mmol/L (3.5-5.1)
[2017-08-31] MEDS: VANCOMYCIN 250MG/5ML ORAL SOLN PO SCH ×4 (06:00→18:55)
[2017-08-31] MEDS: METRONIDAZOLE 500MG/NS 100ML 100 ML IV SCH ×3 (06:00→22:58)
[2017-08-31 06:03] LABS: CALCIUM 7.6 mg/dL (8.4-10.2)
[2017-08-31 06:12] LABS: MAGNESIUM 1.6 MG/DL (1.3-2.1); PHOSPHORUS 2.6 MG/DL (2.3-4.7)
[2017-08-31] MEDS: INSULIN LISPRO 100 UNIT/1 ML 3ML VIAL SQ SCH ×4 (08:06→21:00)
[2017-08-31] MEDS: HEPARIN SOD (PORCINE) 5,000 UNIT/ML VIAL SC SCH ×2 (08:06→21:14)
[2017-08-31] MEDS: FUROSEMIDE INJ 10 MG/ML 4 ML VIAL IV SCH ×2 (08:07→21:16)
[2017-08-31] MEDS: ASPIRIN 81 MG CHEW TAB PO SCH (08:13)
[2017-08-31] MEDS: PANTOPRAZOLE SOD 40 MG TABEC PO SCH (08:13)
[2017-08-31] MEDS: FERROUS SULFATE 325 MG TAB PO SCH (08:13)
[2017-08-31] MEDS: FOLIC ACID 1 MG TAB PO SCH (08:13)
[2017-08-31] MEDS: LACTOBACILLUS ACIDOPHILUS CAPSULE PO SCH ×2 (08:13→21:14)
[2017-08-31] MEDS: CEFEPIME HCL 1 GM VIAL IV SCH ×2 (08:13→21:14)
[2017-08-31] MEDS: SILVER SULFADIAZINE 400GM CREAM TOP SCH (09:00)
[2017-08-31] MEDS ORDERED: POTASSIUM CHLORIDE 20MEQ/100ML 200 ML IV ONE (10:00)
[2017-08-31] MEDS: ACETAMINOPHEN 325 MG TAB PO PRN ×2 (11:30→21:15)
[2017-08-31] MEDS ORDERED: SODIUM CHLORIDE 0.9% 250ML 250 ML IV ONE (17:00)
[2017-09-01] VITALS (19 sets, daily range): BP systolic 93–124; BP diastolic 42–66
[2017-09-01] MEDS: VANCOMYCIN 250MG/5ML ORAL SOLN PO SCH ×5 (00:27→23:02)
--- NOTE | 2017-09-01 01:10 | Diagnostic Imaging Report ---
EXAM: ABDOMEN-1VIEW (KUB) DATE: 08/31/2017 11:30 PM Time stamp on exam: 2302 hours INDICATION: Dobbhoff tube placement COMPARISON: None FINDINGS: LINES/TUBES: Tip of Dobbhoff tube is visualized in the left upper quadrant overlying the region of the gastric body. BOWEL PATTERN: No evidence for obstruction. SOFT TISSUES: No abnormal calcifications. No mass effect. LUNG BASES: Not included BONES: Degenerative changes of the lumbar spine. IMPRESSION: Nonobstructive bowel gas pattern. Tip of Dobbhoff tube is visualized. Signed by: Dr. Mark Herring M.D. on 09/01/2017 1:07 AM
[2017-09-01] MEDS: ACETAMINOPHEN 325 MG TAB PO PRN ×2 (03:57→22:10)
[2017-09-01 05:48] LABS: BASOPHILS % 0.3 % (0.0-1.0); EOSINOPHILS # (AUTO) 0.1 (0.0-0.4); EOSINOPHILS % 0.4 % (0.0-6.0); HEMATOCRIT 28.8 % (38.2-49.6); HEMOGLOBIN 9.2 g/dL (14.0-18.0); LYMPHOCYTES # (AUTO) 1.7 (1.0-3.2); LYMPHOCYTES % 15.1 % (18.0-39.1); MEAN CORPUSCULAR HEMOGLOBIN 28.3 pg (28-32); MEAN CORPUSCULAR HGB CONC 31.9 g/dL (31-35); MEAN CORPUSCULAR VOLUME 88.6 fL (81-99); MONOCYTES # (AUTO) 0.7 (0.2-0.8); NEUTROPHILS # (AUTO) 8.7 (2.1-6.9); NEUTROPHILS % 75.9 % (38.7-80.0); PLATELET COUNT 490 x10e3/uL (140-360); RED BLOOD COUNT 3.25 x10e6/uL (4.3-5.7); RED CELL DISTRIBUTION WIDTH 15.9 % (11.7-14.4)
[2017-09-01] MEDS: METRONIDAZOLE 500MG/NS 100ML 100 ML IV SCH ×3 (06:09→22:48)
[2017-09-01 06:15] LABS: MAGNESIUM 1.5 MG/DL (1.3-2.1); PHOSPHORUS 2.5 MG/DL (2.3-4.7)
[2017-09-01 06:19] LABS: ALBUMIN 1.3 g/dL (3.5-5.0); ALBUMIN/GLOBULIN RATIO 0.5 (0.8-2.0); ANION GAP 10.1 mmol/L (8-16); CALCIUM 7.5 mg/dL (8.4-10.2); CREATININE, SERUM 1.19 mg/dL (0.72-1.25); POTASSIUM 4.1 mmol/L (3.5-5.1)
[2017-09-01 07:49] LABS: BAND NEUTROPHILS % (MANUAL) 7 %; LYMPHOCYTES % (MANUAL) 21 % (19-48); MONOCYTES % (MANUAL) 2 % (3.4-9.0); NEUTROPHILS % (MANUAL) 70 % (40-74); PLATELET ESTIMATE MODERATELY INCREASED; PLATELET MORPHOLOGY COMMENT FEW LARGE; RBC MORPHOLOGY COMMENT NORMAL
[2017-09-01] MEDS: FOLIC ACID 1 MG TAB PO SCH (08:57)
[2017-09-01] MEDS: PANTOPRAZOLE SOD 40 MG TABEC PO SCH (08:57)
[2017-09-01] MEDS: SILVER SULFADIAZINE 400GM CREAM TOP SCH (08:57)
[2017-09-01] MEDS: HEPARIN SOD (PORCINE) 5,000 UNIT/ML VIAL SC SCH ×2 (08:57→22:49)
[2017-09-01] MEDS: CEFEPIME HCL 1 GM VIAL IV SCH ×2 (08:57→22:48)
[2017-09-01] MEDS: ASPIRIN 81 MG CHEW TAB PO SCH (08:57)
[2017-09-01] MEDS: FERROUS SULFATE 325 MG TAB PO SCH (08:57)
[2017-09-01] MEDS: INSULIN LISPRO 100 UNIT/1 ML 3ML VIAL SQ SCH ×4 (08:57→21:00)
[2017-09-01] MEDS: FUROSEMIDE INJ 10 MG/ML 4 ML VIAL IV SCH ×2 (08:57→17:18)
[2017-09-01] MEDS: LACTOBACILLUS ACIDOPHILUS CAPSULE PO SCH ×2 (08:57→22:48)
[2017-09-01] MEDS ORDERED: SODIUM CHLORIDE 0.9% 250ML 250 ML ONE (14:08)
--- NOTE | 2017-09-01 18:17 | Diagnostic Imaging Report ---
EXAM: Abdomen 1 View INDICATION: \S\Confirm Dubhoff tube placement \S\[id number] \S\1704 COMPARISON: 08/31/2017 FINDINGS: See below. IMPRESSION: Dedicated x-ray to confirm Dobbhoff tube placement. Dobbhoff tube is visualized, coursing below the left hemidiaphragm with tip overlying the gastric antrum. Signed by: Dr. Bolivar Garcia MD on 09/01/2017 6:13 PM
[2017-09-01 19:31] LABS: ALBUMIN 1.3 g/dL (3.5-5.0); ALBUMIN/GLOBULIN RATIO 0.4 (0.8-2.0); ANION GAP 10.6 mmol/L (8-16); CALCIUM 7.8 mg/dL (8.4-10.2); CREATININE, SERUM 1.22 mg/dL (0.72-1.25); POTASSIUM 3.6 mmol/L (3.5-5.1)
[2017-09-01 23:12] LABS: CLARITY,URINE CLEAR (CLEAR); COLOR,URINE YELLOW (YELLOW); LEUKOCYTE ESTERASE ,URINE NEGATIVE (NEGATIVE); NITRITE,URINE NEGATIVE (NEGATIVE); PROTEIN,URINE DIPSTICK TRACE (NEGATIVE)
[2017-09-01 23:13] LABS: BILIRUBIN,URINE NEGATIVE (NEGATIVE); KETONES,URINE NEGATIVE (NEGATIVE); URINE UROBILINOGEN 0.2 mg/dL (0.2 - 1)
[2017-09-01 23:18] LABS: BACTERIA,URINE FEW /HPF; EPITHELIAL CELLS,URINE FEW /LPF; RBC,URINE 21-50 /HPF (0-5)
[2017-09-02] VITALS (8 sets, daily range): BP systolic 101–114; BP diastolic 56–63
[2017-09-02] MEDS: VANCOMYCIN 250MG/5ML ORAL SOLN PO SCH ×4 (05:29→23:58)
[2017-09-02] MEDS: METRONIDAZOLE 500MG/NS 100ML 100 ML IV SCH ×3 (05:29→21:14)
[2017-09-02] MEDS: ACETAMINOPHEN 325 MG TAB PO PRN (06:57)
[2017-09-02 07:17] LABS: ANION GAP 9.6 mmol/L (8-16); CALCIUM 8.2 mg/dL (8.4-10.2); CREATININE, SERUM 1.22 mg/dL (0.72-1.25); PHOSPHORUS 2.6 MG/DL (2.3-4.7); POTASSIUM 3.6 mmol/L (3.5-5.1)
[2017-09-02] MEDS: INSULIN LISPRO 100 UNIT/1 ML 3ML VIAL SQ SCH ×4 (07:30→20:59)
[2017-09-02] MEDS: ASPIRIN 81 MG CHEW TAB PO SCH (09:00)
[2017-09-02] MEDS: FOLIC ACID 1 MG TAB PO SCH (09:00)
[2017-09-02] MEDS: FUROSEMIDE INJ 10 MG/ML 4 ML VIAL IV SCH ×2 (09:00→16:17)
[2017-09-02] MEDS: FERROUS SULFATE 325 MG TAB PO SCH (09:00)
[2017-09-02] MEDS: CEFEPIME HCL 1 GM VIAL IV SCH ×2 (09:00→21:14)
[2017-09-02] MEDS: HEPARIN SOD (PORCINE) 5,000 UNIT/ML VIAL SC SCH ×2 (09:00→20:58)
[2017-09-02] MEDS: PANTOPRAZOLE SOD 40 MG TABEC PO SCH (09:00)
[2017-09-02] MEDS: LACTOBACILLUS ACIDOPHILUS CAPSULE PO SCH ×2 (09:15→21:14)
[2017-09-02 10:30] LABS: INR 1.58; PROTHROMBIN TIME 17.7 seconds (11.9-14.5)
[2017-09-02] MEDS: HYDROMORPHONE 1MG/1ML INJ IV PRN ×2 (12:10→17:41)
[2017-09-02] MEDS: SILVER SULFADIAZINE 400GM CREAM TOP SCH (14:48)
[2017-09-03] MEDS: HYDROMORPHONE 1MG/1ML INJ IV PRN ×3 (04:29→23:15)
[2017-09-03 04:45] VITALS: BP 119/61
[2017-09-03] MEDS: VANCOMYCIN 250MG/5ML ORAL SOLN PO SCH ×3 (05:28→18:07)
[2017-09-03] MEDS: METRONIDAZOLE 500MG/NS 100ML 100 ML IV SCH ×3 (05:28→21:18)
[2017-09-03 06:33] LABS: ALANINE AMINOTRANSFERASE 24 IU/L (0-55); ALBUMIN 1.3 g/dL (3.5-5.0); ALBUMIN/GLOBULIN RATIO 0.4 (0.8-2.0); ALKALINE PHOSPHATASE 1482 IU/L (40-150); ANION GAP 11.5 mmol/L (8-16); BLOOD UREA NITROGEN 27 mg/dL (7-26); BUN/CREATININE RATIO 24 (6-25); CALCIUM 7.9 mg/dL (8.4-10.2); CARBON DIOXIDE 27 mmol/L (22-29); CHLORIDE 105 mmol/L (98-107); CREATININE, SERUM 1.13 mg/dL (0.72-1.25); EST GLOMERULAR FILTRATION RATE > 60 ML/MIN (60-); GLUCOSE 117 mg/dL (74-118); POTASSIUM 3.5 mmol/L (3.5-5.1); SODIUM 140 mmol/L (136-145)
[2017-09-03] MEDS: INSULIN LISPRO 100 UNIT/1 ML 3ML VIAL SQ SCH ×4 (07:30→20:34)
[2017-09-03] MEDS: FUROSEMIDE INJ 10 MG/ML 4 ML VIAL IV SCH ×2 (08:02→16:30)
[2017-09-03] MEDS: ASPIRIN 81 MG CHEW TAB PO SCH (09:00)
[2017-09-03] MEDS: PANTOPRAZOLE SOD 40 MG TABEC PO SCH (09:00)
[2017-09-03] MEDS: FERROUS SULFATE 325 MG TAB PO SCH (09:00)
[2017-09-03] MEDS: FOLIC ACID 1 MG TAB PO SCH (09:00)
[2017-09-03] MEDS: HEPARIN SOD (PORCINE) 5,000 UNIT/ML VIAL SC SCH ×2 (09:00→20:34)
[2017-09-03 09:10] VITALS: BP 114/54
[2017-09-03] MEDS: LACTOBACILLUS ACIDOPHILUS CAPSULE PO SCH ×2 (09:15→20:34)
[2017-09-03] MEDS: CEFEPIME HCL 1 GM VIAL IV SCH ×2 (09:37→20:34)
[2017-09-03] MEDS: SILVER SULFADIAZINE 400GM CREAM TOP SCH (09:37)
[2017-09-03 09:42] VITALS: BP 114/54
[2017-09-03] MEDS ORDERED: POTASSIUM CHLORIDE 10 MEQ TABCR PO NR (10:30)
--- NOTE | 2017-09-03 10:30 | Diagnostic Imaging Report ---
PROCEDURE: Frontal and lateral views of the chest. COMPARISON: Patients [facility], DX, CHEST SINGLE (PORTABLE), 08/31/2017, 5:07. INDICATIONS: PLEURAL EFFUSION, SHORTNESS OF BREATH FINDINGS: Lines/tubes: Right IJ central line and Dobbhoff feeding tube noted. Lungs: Bibasilar atelectasis. Pleura: Bilateral pleural effusions; right side greater than left. Small right apical pneumothorax. Heart and mediastinum: The heart and the mediastinum are normal. Bones: No acute bony abnormality. IMPRESSION: 1. Small bilateral pleural effusions with basilar atelectasis. 2. Small right apical pneumothorax again noted. Tai Hung D.O. Dictated by: Tai Hung D.O. on 09/03/2017 at 10:34 Electronically approved by: Tai Hung D.O. on 09/03/2017 at 10:34
[2017-09-03 12:00] VITALS: BP 110/64
[2017-09-03] MEDS ORDERED: METRONIDAZOLE 500MG/NS 100ML 100 ML IV ONE (13:19)
[2017-09-03] MEDS ORDERED: POTASSIUM CHLORIDE 20MEQ/100ML 200 ML IV ONE (14:45)
--- NOTE | 2017-09-03 15:04 | Operative Report ---
DATE OF PROCEDURE: September 03, 2017 REFERRING PHYSICIAN: Dr. Tavares Ny. PROCEDURE PERFORMED: 1. Esophagogastroduodenoscopy. 2. Percutaneous endoscopic gastrotomy tube placement. INDICATIONS FOR PROCEDURE: Nasogastric tube feeding dependent, failure to thrive. MEDICATION: Patient was done under MAC. Please see anesthesiologist's note. PROCEDURE: With the patient in the left lateral decubitus position, the flexible fiberoptic Olympus gastroscope was introduced into the esophagus under direct visualization without any difficulty. There was some patchy erythema noted in the distal esophagus. The scope was then advanced with ease into the stomach, traversing a small hiatal hernia. The mucosa overlying the antrum and the body revealed some diffuse erythema. The pylorus was of normal contour and shape, was intubated with ease, and the scope was advanced all the way to the 2nd portion of the duodenum. The scope was then withdrawn slowly. Mucosa overlying the proximal 2nd portion and the duodenal bulb appeared to be within normal limits. The scope was then withdrawn back into the stomach and retroflexed, and the previously described hiatal hernia was also noted in the retroflexed position. The scope was then straightened out, and after localization of a safe entry point per external digital palpation and transabdominal illumination, PEG tube placement was carried out in the usual fashion. The scope was subsequently withdrawn. Patient tolerated the procedure well. IMPRESSION: 1. Distal esophagitis. 2. Hiatal hernia. 3. Gastritis. 4. Percutaneous endoscopic gastrotomy tube insertion carried out in the usual fashion. Patient tolerated the procedure well. G-tube to drain to gravity times 24 hours in a Felix bag, then can use. Please apply abdominal binder. Job#: [id number] EV cc:RODOLFO [place] MD
[2017-09-03 16:00] VITALS: BP 126/70
[2017-09-03] MEDS ORDERED: LIDOCAINE HCL 2% LOCAL INJ 5 ML SDV VIAL INJ ONE (17:23)
[2017-09-03] MEDS ORDERED: PROPOFOL IV EMULSION 10 MG/ML 20 ML VIAL ONE (17:23)
[2017-09-03 20:13] VITALS: BP 113/58
[2017-09-04] MEDS: VANCOMYCIN 250MG/5ML ORAL SOLN PO SCH ×2 (05:11)
[2017-09-04] MEDS: METRONIDAZOLE 500MG/NS 100ML 100 ML IV SCH (05:54)
[2017-09-04] MEDS: HYDROMORPHONE 1MG/1ML INJ IV PRN ×3 (05:55→18:29)
[2017-09-04 06:28] VITALS: BP 146/66
[2017-09-04 07:30] VITALS: BP 118/65
[2017-09-04] MEDS: INSULIN LISPRO 100 UNIT/1 ML 3ML VIAL SQ SCH ×4 (07:30→21:00)
[2017-09-04 08:00] VITALS: BP 118/65
[2017-09-04] MEDS: PANTOPRAZOLE SOD 40 MG TABEC PO SCH (09:54)
[2017-09-04] MEDS: SILVER SULFADIAZINE 400GM CREAM TOP SCH (09:54)
[2017-09-04] MEDS: FERROUS SULFATE 325 MG TAB PO SCH (09:54)
[2017-09-04] MEDS: FOLIC ACID 1 MG TAB PO SCH (09:54)
[2017-09-04] MEDS: ASPIRIN 81 MG CHEW TAB PO SCH (09:54)
[2017-09-04] MEDS: FUROSEMIDE INJ 10 MG/ML 4 ML VIAL IV SCH ×2 (09:54→17:00)
[2017-09-04] MEDS: LACTOBACILLUS ACIDOPHILUS CAPSULE PO SCH ×2 (09:54→21:40)
[2017-09-04 14:37] VITALS: BP 125/61
[2017-09-04 16:58] VITALS: BP 129/62
[2017-09-04 20:00] VITALS: BP 129/61
[2017-09-05] VITALS: BP 131/59
[2017-09-05 04:00] VITALS: BP 134/59
[2017-09-05 07:12] LABS: BASOPHILS % 0.3 % (0.0-1.0); EOSINOPHILS # (AUTO) 0.1 (0.0-0.4); HEMOGLOBIN 8.9 g/dL (14.0-18.0); LYMPHOCYTES # (AUTO) 1.6 (1.0-3.2); LYMPHOCYTES % 15.4 % (18.0-39.1); MEAN CORPUSCULAR HEMOGLOBIN 27.8 pg (28-32); MEAN CORPUSCULAR HGB CONC 30.7 g/dL (31-35); MEAN CORPUSCULAR VOLUME 90.6 fL (81-99); MONOCYTES # (AUTO) 0.9 (0.2-0.8); NEUTROPHILS # (AUTO) 7.5 (2.1-6.9); NEUTROPHILS % 72.8 % (38.7-80.0); PLATELET COUNT 412 x10e3/uL (140-360); RED CELL DISTRIBUTION WIDTH 17.3 % (11.7-14.4)
[2017-09-05 07:27] LABS: ALANINE AMINOTRANSFERASE 18 IU/L (0-55); ALBUMIN 1.5 g/dL (3.5-5.0); ALBUMIN/GLOBULIN RATIO 0.4 (0.8-2.0); ALKALINE PHOSPHATASE 1441 IU/L (40-150); ANION GAP 11.9 mmol/L (8-16); BLOOD UREA NITROGEN 29 mg/dL (7-26); BUN/CREATININE RATIO 30 (6-25); CALCIUM 8.5 mg/dL (8.4-10.2); CARBON DIOXIDE 26 mmol/L (22-29); CHLORIDE 106 mmol/L (98-107); CREATININE, SERUM 0.98 mg/dL (0.72-1.25); EST GLOMERULAR FILTRATION RATE > 60 ML/MIN (60-); GLUCOSE 189 mg/dL (74-118); POTASSIUM 3.9 mmol/L (3.5-5.1); SODIUM 140 mmol/L (136-145)
[2017-09-05] MEDS: INSULIN LISPRO 100 UNIT/1 ML 3ML VIAL SQ SCH ×4 (07:30→21:00)
[2017-09-05] MEDS: HYDROMORPHONE 1MG/1ML INJ IV PRN ×2 (07:36→20:14)
[2017-09-05 07:38] VITALS: BP_SYST 121; BP_SYST 134; BP_DIAS 59; BP_DIAS 75
[2017-09-05 08:00] VITALS: BP 118/65
[2017-09-05] MEDS: PANTOPRAZOLE SOD 40 MG TABEC PO SCH (08:27)
[2017-09-05] MEDS: FOLIC ACID 1 MG TAB PO SCH (08:27)
[2017-09-05] MEDS: FUROSEMIDE INJ 10 MG/ML 4 ML VIAL IV SCH ×2 (08:27→16:50)
[2017-09-05] MEDS: FERROUS SULFATE 325 MG TAB PO SCH (08:27)
[2017-09-05] MEDS: LACTOBACILLUS ACIDOPHILUS CAPSULE PO SCH ×2 (08:27→21:44)
[2017-09-05] MEDS: ASPIRIN 81 MG CHEW TAB PO SCH (08:27)
[2017-09-05] MEDS: CARVEDILOL 3.125 MG TAB PO SCH (09:00)
[2017-09-05 16:12] VITALS: BP 107/61
--- NOTE | 2017-09-05 16:57 | Discharge Summary ---
He is a 77-year-old male patient admitted from the [facility] as the patient was in respiratory distress. ADMITTING IMPRESSION/DIAGNOSES 1. Acute respiratory distress. 2. The patient had cardiac arrest requiring mechanical ventilation. 3. The patient has bilateral large pleural effusion. 4. Sepsis. 5. Clostridium difficile colitis. 6. Recent ileostomy with total colectomy. 7. Bilateral pneumonia. 8. Diabetes mellitus. 9. Hypertension. HOSPITAL COURSE SUMMARY: The patient was admitted with the above diagnosis. The patient had a cardiac arrest requiring mechanical ventilation. The patient had bilateral thoracentesis done. The patient had improved significantly after that. The patient was off the ventilator. The patient remained to have a very poor intake. PEG tube was placed. After a long denial, finally the patient agreed for the PEG tube placement. PEG tube was placed. Oral PEG tube feeding was started as the patient has severe malnutrition. Very low albumin, which was causing him to have generalized anasarca. The patient remained to have increased alkaline phosphatase level, which is coming from the liver, as well as the bone. The patient has a Felix catheter. She is going to try clamp the Felix [facility] and [facility]. Upon stabilization, the patient will be transferred back to the [facility]. The patient is on tube feeding at 45 mL, which we will increase. In the [facility], the patient needs more monitoring for any possible recurrence of the C. diff, increased tube feeding and removing the Felix catheter, physical therapy, and occupational therapy. RODOLFO NY MD Job#: [id number] CT
[2017-09-05 20:00] VITALS: BP 118/68
[2017-09-06] VITALS (8 sets, daily range): BP systolic 96–115; BP diastolic 54–67
[2017-09-06 06:37] LABS: ANION GAP 9.9 mmol/L (8-16); BLOOD UREA NITROGEN 29 mg/dL (7-26); BUN/CREATININE RATIO 33 (6-25); CALCIUM 8.2 mg/dL (8.4-10.2); CARBON DIOXIDE 27 mmol/L (22-29); CHLORIDE 104 mmol/L (98-107); CREATININE, SERUM 0.87 mg/dL (0.72-1.25); EST GLOMERULAR FILTRATION RATE > 60 ML/MIN (60-); GLUCOSE 175 mg/dL (74-118); POTASSIUM 3.9 mmol/L (3.5-5.1); SODIUM 137 mmol/L (136-145)
[2017-09-06] MEDS: PANTOPRAZOLE SOD 40 MG TABEC PO SCH (08:57)
[2017-09-06] MEDS: LACTOBACILLUS ACIDOPHILUS CAPSULE PO SCH ×2 (08:57→22:01)
[2017-09-06] MEDS: FOLIC ACID 1 MG TAB PO SCH (08:57)
[2017-09-06] MEDS: ASPIRIN 81 MG CHEW TAB PO SCH (08:57)
[2017-09-06] MEDS: FERROUS SULFATE 325 MG TAB PO SCH (08:57)
[2017-09-06] MEDS: FUROSEMIDE INJ 10 MG/ML 4 ML VIAL IV SCH ×2 (08:57→16:27)
[2017-09-06] MEDS: CARVEDILOL 3.125 MG TAB PO SCH (08:58)
[2017-09-06] MEDS: INSULIN LISPRO 100 UNIT/1 ML 3ML VIAL SQ SCH ×4 (08:58→22:01)
[2017-09-06] MEDS: HYDROMORPHONE 1MG/1ML INJ IV PRN ×2 (10:40→18:22)
[2017-09-07] VITALS (8 sets, daily range): BP systolic 112–145; BP diastolic 54–69
[2017-09-07] MEDS: HYDROMORPHONE 1MG/1ML INJ IV PRN ×3 (02:54→18:57)
[2017-09-07 06:14] LABS: BASOPHILS % 0.2 % (0.0-1.0); EOSINOPHILS # (AUTO) 0.1 (0.0-0.4); EOSINOPHILS % 1.2 % (0.0-6.0); HEMATOCRIT 25.8 % (38.2-49.6); HEMOGLOBIN 8.3 g/dL (14.0-18.0); LYMPHOCYTES # (AUTO) 1.8 (1.0-3.2); LYMPHOCYTES % 17.2 % (18.0-39.1); MEAN CORPUSCULAR HEMOGLOBIN 28.3 pg (28-32); MEAN CORPUSCULAR HGB CONC 32.2 g/dL (31-35); MEAN CORPUSCULAR VOLUME 88.1 fL (81-99); MONOCYTES # (AUTO) 0.8 (0.2-0.8); MONOCYTES % 7.1 % (4.4-11.3); NEUTROPHILS # (AUTO) 7.8 (2.1-6.9); NEUTROPHILS % 73.4 % (38.7-80.0); PLATELET COUNT 426 x10e3/uL (140-360); RED BLOOD COUNT 2.93 x10e6/uL (4.3-5.7)
[2017-09-07 06:34] LABS: ALANINE AMINOTRANSFERASE 18 IU/L (0-55); ALBUMIN 1.4 g/dL (3.5-5.0); ALBUMIN/GLOBULIN RATIO 0.4 (0.8-2.0); ALKALINE PHOSPHATASE 1156 IU/L (40-150); ANION GAP 9.4 mmol/L (8-16); BLOOD UREA NITROGEN 33 mg/dL (7-26); BUN/CREATININE RATIO 38 (6-25); CARBON DIOXIDE 27 mmol/L (22-29); CHLORIDE 101 mmol/L (98-107); CREATININE, SERUM 0.86 mg/dL (0.72-1.25); EST GLOMERULAR FILTRATION RATE > 60 ML/MIN (60-); GLUCOSE 279 mg/dL (74-118); POTASSIUM 4.4 mmol/L (3.5-5.1); SODIUM 133 mmol/L (136-145)
[2017-09-07] MEDS: FERROUS SULFATE 325 MG TAB PO SCH ×2 (08:11→15:58)
[2017-09-07] MEDS: ASPIRIN 81 MG CHEW TAB PO SCH (08:11)
[2017-09-07] MEDS: PANTOPRAZOLE SOD 40 MG TABEC PO SCH (08:11)
[2017-09-07] MEDS: FUROSEMIDE INJ 10 MG/ML 4 ML VIAL IV SCH ×2 (08:11→15:58)
[2017-09-07] MEDS: INSULIN LISPRO 100 UNIT/1 ML 3ML VIAL SQ SCH ×4 (08:11→20:08)
[2017-09-07] MEDS: CARVEDILOL 3.125 MG TAB PO SCH (08:11)
[2017-09-07] MEDS: LACTOBACILLUS ACIDOPHILUS CAPSULE PO SCH ×2 (08:11→20:09)
[2017-09-07] MEDS: FOLIC ACID 1 MG TAB PO SCH (08:11)
[2017-09-08] VITALS (8 sets, daily range): BP systolic 110–124; BP diastolic 54–65
[2017-09-08 05:09] LABS: BILIRUBIN,URINE NEGATIVE (NEGATIVE); CLARITY,URINE CLEAR (CLEAR); COLOR,URINE YELLOW (YELLOW); KETONES,URINE NEGATIVE (NEGATIVE); LEUKOCYTE ESTERASE ,URINE NEGATIVE (NEGATIVE); NITRITE,URINE NEGATIVE (NEGATIVE); PROTEIN,URINE DIPSTICK 2+ (NEGATIVE); URINE UROBILINOGEN 0.2 mg/dL (0.2 - 1)
[2017-09-08 05:12] LABS: AMORPHOUS SEDIMENT,URINE FEW (FEW); BACTERIA,URINE RARE /HPF; EPITHELIAL CELLS,URINE MANY /LPF; RBC,URINE 0-5 /HPF (0-5); WBC,URINE (MAN) 0-5 /HPF (0-5)
[2017-09-08] MEDS: HYDROMORPHONE 1MG/1ML INJ IV PRN ×3 (05:23→17:33)
[2017-09-08] MEDS: INSULIN LISPRO 100 UNIT/1 ML 3ML VIAL SQ SCH ×4 (07:31→20:22)
[2017-09-08] MEDS: ASPIRIN 81 MG CHEW TAB PO SCH (08:45)
[2017-09-08] MEDS: FERROUS SULFATE 325 MG TAB PO SCH ×2 (08:45→17:19)
[2017-09-08] MEDS: FOLIC ACID 1 MG TAB PO SCH (08:45)
[2017-09-08] MEDS: SITAGLIPTIN 100 MG TAB PO SCH (08:45)
[2017-09-08] MEDS: ASCORBIC ACID 500 MG TAB PO SCH (08:45)
[2017-09-08] MEDS: FUROSEMIDE INJ 10 MG/ML 4 ML VIAL IV SCH ×2 (08:45→17:19)
[2017-09-08] MEDS: PANTOPRAZOLE SOD 40 MG TABEC PO SCH (08:45)
[2017-09-08] MEDS: LACTOBACILLUS ACIDOPHILUS CAPSULE PO SCH ×2 (08:45→20:31)
[2017-09-08] MEDS ORDERED: MULTIVITAMINS 120ML BOTTLE GT SCH (09:00)
[2017-09-08] MEDS: CARVEDILOL 3.125 MG TAB PO SCH (09:00)
[2017-09-08] MEDS: MULTIVITAMINS 5 ML LIQUID GT SCH (11:58)
[2017-09-09] VITALS (7 sets, daily range): BP systolic 98–181; BP diastolic 51–77
[2017-09-09 05:29] LABS: BASOPHILS # (AUTO) 0.1 (0.0-0.1); BASOPHILS % 0.4 % (0.0-1.0); EOSINOPHILS # (AUTO) 0.1 (0.0-0.4); EOSINOPHILS % 0.8 % (0.0-6.0); HEMATOCRIT 25.2 % (38.2-49.6); HEMOGLOBIN 8.2 g/dL (14.0-18.0); LYMPHOCYTES # (AUTO) 1.9 (1.0-3.2); LYMPHOCYTES % 14.9 % (18.0-39.1); MEAN CORPUSCULAR HEMOGLOBIN 28.5 pg (28-32); MEAN CORPUSCULAR HGB CONC 32.5 g/dL (31-35); MEAN CORPUSCULAR VOLUME 87.5 fL (81-99); MONOCYTES # (AUTO) 0.9 (0.2-0.8); NEUTROPHILS # (AUTO) 9.5 (2.1-6.9); NEUTROPHILS % 75.8 % (38.7-80.0); PLATELET COUNT 483 x10e3/uL (140-360); RED BLOOD COUNT 2.88 x10e6/uL (4.3-5.7); RED CELL DISTRIBUTION WIDTH 16.6 % (11.7-14.4)
[2017-09-09 05:55] LABS: % IRON SATURATION 12 % (15-50); ALANINE AMINOTRANSFERASE 26 IU/L (0-55); ALBUMIN 1.6 g/dL (3.5-5.0); ALBUMIN/GLOBULIN RATIO 0.4 (0.8-2.0); ALKALINE PHOSPHATASE 1226 IU/L (40-150); ANION GAP 11.9 mmol/L (8-16); BLOOD UREA NITROGEN 39 mg/dL (7-26); BUN/CREATININE RATIO 46 (6-25); CALCIUM 8.4 mg/dL (8.4-10.2); CARBON DIOXIDE 27 mmol/L (22-29); CHLORIDE 97 mmol/L (98-107); CREATININE, SERUM 0.85 mg/dL (0.72-1.25); EST GLOMERULAR FILTRATION RATE > 60 ML/MIN (60-); GLUCOSE 324 mg/dL (74-118); IRON 16 ug/dL (65-175); POTASSIUM 4.9 mmol/L (3.5-5.1); SODIUM 131 mmol/L (136-145); TOTAL IRON BINDING CAPACITY 137 ug/dL (261-478); TRANSFERRIN 98 mg/dL (174-364)
[2017-09-09] MEDS: INSULIN DETEMIR 100 UNIT/ML PEN SQ SCH ×2 (09:00→16:11)
[2017-09-09] MEDS: INSULIN LISPRO 100 UNIT/1 ML 3ML VIAL SQ SCH ×4 (09:00→21:00)
[2017-09-09] MEDS: HYDROMORPHONE 1MG/1ML INJ IV PRN ×2 (09:20→15:30)
[2017-09-09] MEDS: MULTIVITAMINS 5 ML LIQUID GT SCH (09:30)
[2017-09-09] MEDS: FERROUS SULFATE 325 MG TAB PO SCH ×2 (09:30→17:29)
[2017-09-09] MEDS: PANTOPRAZOLE SOD 40 MG TABEC PO SCH (09:30)
[2017-09-09] MEDS: LACTOBACILLUS ACIDOPHILUS CAPSULE PO SCH ×2 (09:30→21:31)
[2017-09-09] MEDS: FUROSEMIDE INJ 10 MG/ML 4 ML VIAL IV SCH ×2 (09:30→17:29)
[2017-09-09] MEDS: SITAGLIPTIN 100 MG TAB PO SCH (09:30)
[2017-09-09] MEDS: CARVEDILOL 3.125 MG TAB PO SCH ×2 (09:30→17:30)
[2017-09-09] MEDS: ASPIRIN 81 MG CHEW TAB PO SCH (09:30)
[2017-09-09] MEDS: FOLIC ACID 1 MG TAB PO SCH (09:30)
[2017-09-09] MEDS: ASCORBIC ACID 500 MG TAB PO SCH (09:30)
--- NOTE | 2017-09-09 11:48 | Diagnostic Imaging Report ---
PROCEDURE:ABDOMEN-1VIEW (KUB) TECHNIQUE:Supine AP abdomen INDICATION:Vomiting COMPARISON:Patients [facility], DX, ABDOMEN-1VIEW ([facility]), 09/01/2017, 17:26. FINDINGS: See conclusion. CONCLUSION: 1. Indwelling gastrostomy. Right lower quadrant ostomy. 2. Grossly normal bowel gas pattern. Dictated by: Abad Delatorre M.D. on 09/09/2017 at 11:52 Electronically approved by: Abad Delatorre M.D. on 09/09/2017 at 11:52
[2017-09-09] MEDS: BALSAM PERU/CASTOR OIL 60 GM OINT...G. TP SCH (17:29)
[2017-09-10] VITALS: BP 111/54
[2017-09-10 04:00] VITALS: BP 121/60
[2017-09-10] MEDS: HYDROMORPHONE 1MG/1ML INJ IV PRN ×3 (06:20→20:45)
[2017-09-10 06:28] LABS: BASOPHILS # (AUTO) 0.1 (0.0-0.1); BASOPHILS % 0.5 % (0.0-1.0); EOSINOPHILS # (AUTO) 0.1 (0.0-0.4); EOSINOPHILS % 1.1 % (0.0-6.0); HEMATOCRIT 24.8 % (38.2-49.6); HEMOGLOBIN 7.8 g/dL (14.0-18.0); LYMPHOCYTES # (AUTO) 1.6 (1.0-3.2); LYMPHOCYTES % 14.7 % (18.0-39.1); MEAN CORPUSCULAR HEMOGLOBIN 28.5 pg (28-32); MEAN CORPUSCULAR HGB CONC 31.5 g/dL (31-35); MEAN CORPUSCULAR VOLUME 90.5 fL (81-99); MONOCYTES # (AUTO) 0.8 (0.2-0.8); MONOCYTES % 7.6 % (4.4-11.3); NEUTROPHILS # (AUTO) 7.9 (2.1-6.9); PLATELET COUNT 516 x10e3/uL (140-360); RED BLOOD COUNT 2.74 x10e6/uL (4.3-5.7); RED CELL DISTRIBUTION WIDTH 16.4 % (11.7-14.4)
[2017-09-10 06:48] LABS: ALANINE AMINOTRANSFERASE 36 IU/L (0-55); ALBUMIN 1.6 g/dL (3.5-5.0); ALBUMIN/GLOBULIN RATIO 0.4 (0.8-2.0); ALKALINE PHOSPHATASE 1358 IU/L (40-150); AMYLASE 88 U/L (25-125); ANION GAP 11.5 mmol/L (8-16); BLOOD UREA NITROGEN 42 mg/dL (7-26); BUN/CREATININE RATIO 49 (6-25); CALCIUM 8.6 mg/dL (8.4-10.2); CARBON DIOXIDE 29 mmol/L (22-29); CHLORIDE 95 mmol/L (98-107); CREATININE, SERUM 0.86 mg/dL (0.72-1.25); EST GLOMERULAR FILTRATION RATE > 60 ML/MIN (60-); GLUCOSE 250 mg/dL (74-118); LIPASE 97 U/L (8-78); MAGNESIUM 1.7 MG/DL (1.3-2.1); POTASSIUM 4.5 mmol/L (3.5-5.1); SODIUM 131 mmol/L (136-145)
[2017-09-10 08:17] VITALS: BP 120/59
[2017-09-10] MEDS: SITAGLIPTIN 100 MG TAB PO SCH (09:20)
[2017-09-10] MEDS: INSULIN LISPRO 100 UNIT/1 ML 3ML VIAL SQ SCH ×4 (09:30→21:00)
[2017-09-10] MEDS: FOLIC ACID 1 MG TAB PO SCH (09:41)
[2017-09-10] MEDS: BALSAM PERU/CASTOR OIL 60 GM OINT...G. TP SCH ×2 (09:41→17:40)
[2017-09-10] MEDS: ASPIRIN 81 MG CHEW TAB PO SCH (09:41)
[2017-09-10] MEDS: ASCORBIC ACID 500 MG TAB PO SCH (09:41)
[2017-09-10] MEDS: LACTOBACILLUS ACIDOPHILUS CAPSULE PO SCH ×2 (09:41→21:08)
[2017-09-10] MEDS: FERROUS SULFATE 325 MG TAB PO SCH ×2 (09:41→17:40)
[2017-09-10] MEDS: FUROSEMIDE INJ 10 MG/ML 4 ML VIAL IV SCH ×2 (09:41→17:40)
[2017-09-10] MEDS: PANTOPRAZOLE SOD 40 MG TABEC PO SCH (09:41)
[2017-09-10] MEDS: MULTIVITAMINS 5 ML LIQUID GT SCH (09:41)
[2017-09-10] MEDS: CARVEDILOL 3.125 MG TAB PO SCH ×2 (09:42→17:41)
[2017-09-10] MEDS ORDERED: EPOETIN ALFA 10000 UNIT/ML VIAL SC ONE (11:00)
[2017-09-10] MEDS: IRON SUCROSE 100 MG in SODIUM CHLORIDE 0.9% 100 ML 100 ML IV SCH (12:00)
[2017-09-10 12:25] VITALS: BP 105/54
[2017-09-10] MEDS ORDERED: SODIUM CHLORIDE 0.9% 250ML 250 ML ONE (12:27)
[2017-09-10 16:56] VITALS: BP 108/50
[2017-09-10] MEDS: INSULIN DETEMIR 100 UNIT/ML PEN SQ SCH (17:40)
[2017-09-10 20:00] VITALS: BP 115/58
[2017-09-11] VITALS: BP 109/54
[2017-09-11 04:00] VITALS: BP 126/59
[2017-09-11 06:47] LABS: BASOPHILS % 0.4 % (0.0-1.0); EOSINOPHILS # (AUTO) 0.2 (0.0-0.4); EOSINOPHILS % 1.7 % (0.0-6.0); HEMATOCRIT 22.9 % (38.2-49.6); HEMOGLOBIN 7.5 g/dL (14.0-18.0); LYMPHOCYTES # (AUTO) 1.6 (1.0-3.2); LYMPHOCYTES % 17.7 % (18.0-39.1); MEAN CORPUSCULAR HEMOGLOBIN 28.4 pg (28-32); MEAN CORPUSCULAR HGB CONC 32.8 g/dL (31-35); MEAN CORPUSCULAR VOLUME 86.7 fL (81-99); MONOCYTES # (AUTO) 0.7 (0.2-0.8); MONOCYTES % 7.9 % (4.4-11.3); NEUTROPHILS # (AUTO) 6.4 (2.1-6.9); NEUTROPHILS % 71.5 % (38.7-80.0); PLATELET COUNT 567 x10e3/uL (140-360); RED BLOOD COUNT 2.64 x10e6/uL (4.3-5.7); RED CELL DISTRIBUTION WIDTH 16.3 % (11.7-14.4)
[2017-09-11 07:22] LABS: ALANINE AMINOTRANSFERASE 59 IU/L (0-55); ALBUMIN 1.6 g/dL (3.5-5.0); ALBUMIN/GLOBULIN RATIO 0.4 (0.8-2.0); ALKALINE PHOSPHATASE 1315 IU/L (40-150); ANION GAP 10.5 mmol/L (8-16); BLOOD UREA NITROGEN 48 mg/dL (7-26); BUN/CREATININE RATIO 62 (6-25); CALCIUM 8.8 mg/dL (8.4-10.2); CARBON DIOXIDE 31 mmol/L (22-29); CHLORIDE 98 mmol/L (98-107); CREATININE, SERUM 0.77 mg/dL (0.72-1.25); EST GLOMERULAR FILTRATION RATE > 60 ML/MIN (60-); GLUCOSE 157 mg/dL (74-118); POTASSIUM 4.5 mmol/L (3.5-5.1); SODIUM 135 mmol/L (136-145)
[2017-09-11 08:13] VITALS: BP 136/66
[2017-09-11] MEDS: CARVEDILOL 3.125 MG TAB PO SCH ×2 (08:20→16:48)
[2017-09-11] MEDS: FERROUS SULFATE 325 MG TAB PO SCH ×2 (08:20→16:48)
[2017-09-11] MEDS: MULTIVITAMINS 5 ML LIQUID GT SCH (08:20)
[2017-09-11] MEDS: ASPIRIN 81 MG CHEW TAB PO SCH (08:20)
[2017-09-11] MEDS: PANTOPRAZOLE SOD 40 MG TABEC PO SCH (08:20)
[2017-09-11] MEDS: FUROSEMIDE INJ 10 MG/ML 4 ML VIAL IV SCH ×2 (08:20→16:47)
[2017-09-11] MEDS: FOLIC ACID 1 MG TAB PO SCH (08:20)
[2017-09-11] MEDS: ASCORBIC ACID 500 MG TAB PO SCH (08:21)
[2017-09-11] MEDS: BALSAM PERU/CASTOR OIL 60 GM OINT...G. TP SCH ×2 (08:21→16:48)
[2017-09-11] MEDS: INSULIN LISPRO 100 UNIT/1 ML 3ML VIAL SQ SCH ×3 (08:23→16:49)
[2017-09-11] MEDS: LACTOBACILLUS ACIDOPHILUS CAPSULE PO SCH (08:23)
[2017-09-11] MEDS: INSULIN DETEMIR 100 UNIT/ML PEN SQ SCH ×2 (08:23→16:51)
[2017-09-11] MEDS ORDERED: EPOETIN ALFA 10000 UNIT/ML VIAL SC ONE (08:45)
[2017-09-11 09:00] VITALS: BP 136/66
[2017-09-11] MEDS ORDERED: SODIUM CHLORIDE 1 GM TAB PO SCH (09:00)
--- NOTE | 2017-09-11 09:14 | Consultation ---
DATE OF CONSULTATION: September 11, 2017 CONSULTING: Dr. Negron Thank you, Dr. Avalos and Dr. Negron, for this consultation. This is a 77-year-old gentleman with a past medical history including diabetes, hypertension, hyperlipidemia, coronary artery disease, chronic kidney disease, peripheral arterial disease, hypothyroidism, history of GERD. The patient has complicated medical history, including history of multiple dog bites resulting in sepsis and C. diff colitis requiring total colectomy, renal failure, prolonged hospital course complicated with severe protein calorie malnutrition, admitted to the hospital with worsening shortness of breath. He was transferred from [facility] and received intubation. He had workup including CBC. At admission, hemoglobin was around 8 and dropped to 7.5. The patient had anemia workup that showed anemia of chronic disease and iron deficiency. The patient also has reactive thrombocytosis. The patient denies any active GI bleed. At current, he is complaining of abdominal distention and also had episode of vomiting. No fever or chills reported. The patient is currently following perinatal technician, infectious disease specialist, and agriculture extension specialist. He has hospital-acquired pneumonia, bilateral pleural effusion. PAST MEDICAL HISTORY: Includes dog bites, sepsis, pneumonia, diabetes, hypertension, hyperlipidemia, C. diff colitis, coronary artery disease, chronic kidney disease, peripheral arterial disease, hypothyroidism, GERD. PAST SURGICAL HISTORY: Colectomy, cholecystectomy, C. diff colitis causing colectomy. ALLERGIES: LISINOPRIL. CURRENT MEDICATIONS: List reviewed. SOCIAL HISTORY: No current habits. REVIEW OF SYSTEMS: As per the HPI. FAMILY HISTORY: Reviewed. Positive for diabetes. PHYSICAL EXAMINATION GENERAL: Alert, awake and communicative. Not in acute distress. HEENT: Normocephalic and atraumatic. Sclerae pink. Conjunctivae clear. NECK: Supple. CHEST: Decreased breath sounds at the bases. CARDIOVASCULAR: Regular rate and rhythm. ABDOMEN: Soft. Mildly distended. EXTREMITIES: One plus edema. LINTING MACHINE OPERATOR: Grossly intact. LABS AND IMAGING: Reviewed. ASSESSMENT AND PLAN: The patient with a history of multiple medical conditions currently in the hospital with hospital-acquired pneumonia, sepsis, bilateral pleural effusion, history of Clostridium difficile colitis, acute respiratory failure. The patient had worsening anemia. Hemoglobin dropped to 7.5 with no active gastrointestinal bleed. Workup consistent with anemia of chronic disease and iron deficiency anemia. The patient's current kidney function improved. Hemoglobin is still low. RECOMMENDATIONS: Will start the patient on Epogen treatment considering the recent history of renal injury. Will only give 1 dose of Epogen/Procrit. Continue iron infusion treatment. Blood transfusion if hemoglobin goes below 7. Try to avoid frequency blood draws, and try to use pediatric tube for the blood. Continue current nutritional replacement treatment. Will monitor the patient very closely. The patient and son were discussed in detail, and they agree with the plan of care. Pneumonia and C. diff colitis. The patient is currently following with ID service. Not on any current treatment. At this point, will continue current folic acid, iron sucrose, vitamin C. Will give extra dose of Procrit today. Will follow the patient. Job#: [id number] FREDDY
[2017-09-11 11:30] VITALS: BP 115/61
[2017-09-11] MEDS: IRON SUCROSE 100 MG in SODIUM CHLORIDE 0.9% 100 ML 100 ML IV SCH (12:15)
[2017-09-11] MEDS: HYDROMORPHONE 1MG/1ML INJ IV PRN (14:22)
[2017-09-11 16:13] VITALS: BP 114/58
== END 2017-09-11 17:41 | DRG 871 ==
LOC: ER 20:29 → ERHOLD 22:53 → IMCU 08-28 00:52 → ICU 08-28 08:43 → MED/SURG2 09-01 13:40 → ACU 09-02 10:46 → MED/SURG2 09-02 10:47
PROVIDERS: ADMIT Internal Medicine; ATTEND Internal Medicine
PROC: 0BH17EZ Insertion of Endotracheal Airway into Trachea, Via Natural or Artificial Opening (ICD-10-PCS; principal; 2017-08-28)
PROC: 5A1935Z Respiratory Ventilation, Less than 24 Consecutive Hours (ICD-10-PCS; 2017-08-28)
PROC: 0W9B3ZX Drainage of Left Pleural Cavity, Percutaneous Approach, Diagnostic (ICD-10-PCS; 2017-08-30)
PROC: 0W993ZX Drainage of Right Pleural Cavity, Percutaneous Approach, Diagnostic (ICD-10-PCS; 2017-08-30)
PROC: 30243N1 Transfusion of Nonautologous Red Blood Cells into Central Vein, Percutaneous Approach (ICD-10-PCS; 2017-08-31)
PROC: 0DH63UZ Insertion of Feeding Device into Stomach, Percutaneous Approach (ICD-10-PCS; 2017-09-03)
PROC: 0DJ08ZZ Inspection of Upper Intestinal Tract, Via Natural or Artificial Opening Endoscopic (ICD-10-PCS; 2017-09-03)
DX: A41.9 Sepsis, unspecified organism (principal); E43 Unspecified severe protein-calorie malnutrition; N17.0 Acute kidney failure with tubular necrosis; J96.21 Acute and chronic respiratory failure with hypoxia; I46.9 Cardiac arrest, cause unspecified; J69.0 Pneumonitis due to inhalation of food and vomit; N17.9 Acute kidney failure, unspecified; A04.71 Enterocolitis due to Clostridium difficile, recurrent; J90 Pleural effusion, not elsewhere classified; I13.0 Hypertensive heart and chronic kidney disease with heart failure and stage 1 through stage 4 chronic kidney disease, or unspecified chronic kidney disease; I50.22 Chronic systolic (congestive) heart failure; I50.1 Left ventricular failure, unspecified; E78.5 Hyperlipidemia, unspecified; I25.10 Atherosclerotic heart disease of native coronary artery without angina pectoris; K21.9 Gastro-esophageal reflux disease without esophagitis; I73.9 Peripheral vascular disease, unspecified; E03.9 Hypothyroidism, unspecified; D63.8 Anemia in other chronic diseases classified elsewhere; D50.9 Iron deficiency anemia, unspecified; Y95 Nosocomial condition; E83.39 Other disorders of phosphorus metabolism; D63.1 Anemia in chronic kidney disease; R62.7 Adult failure to thrive; K20.9 Esophagitis, unspecified; K29.70 Gastritis, unspecified, without bleeding; Z66 Do not resuscitate; E87.8 Other disorders of electrolyte and fluid balance, not elsewhere classified; E11.22 Type 2 diabetes mellitus with diabetic chronic kidney disease; N18.3 Chronic kidney disease, stage 3 (moderate); Z90.49 Acquired absence of other specified parts of digestive tract; Z68.27 Body mass index [BMI] 27.0-27.9, adult; Z95.5 Presence of coronary angioplasty implant and graft; Z93.3 Colostomy status
CPT/HCPCS: 31500; 32555; 36415; 36600; 71045; 71046; 74018; 74470; 80048; 80053; 81001; 82140; 82150; 82270; 82550; 82553; 82805; 82945; 82948; 83036; 83540; 83605; 83615; 83690; 83735; 83880; 84080; 84100; 84134; 84157; 84466; 84484; 85025; 85610; 85730; 86850; 86900; 86920; 87040; 87070; 87086; 87186; 87205; 87493; 88112; 88305; 89051; 93005; 93306; 93971; 94002; 94003; 96372; 96374; 97139; 99284; J0692; J1170; J1644; J1756; J1940; J2001; J2270; J2370; J2405; J2543; J3370; J3430; J3480; J7030; J7040; J7042; J7050; J7070; P9016; Q4081